=== PATIENT | female | born 1935 | race Caucasian/White ===

== ENCOUNTER 2016-04-30 11:51 | Inpatient (IN) | payer MEDICARE, BC ==
[~2016-04-30] VITALS: Ht 157.5 cm; Wt 56.0 kg
--- NOTE | ~2016-04-30 | OR ---
PATIENT'S NAME: PORTIA FRY [facility] AGE: 80 Y [address] ROOM: [address] [address] LOCATION: [facility] ADMIT DATE: 04/30/2016 OR/Procedure Report DISCHARGE DATE: FAMILY PHYSICIAN: CAROLYN NOGUERA MD ATTENDING PHYSICIAN: Beau Torres SURGEON: Beau Torres MD CASINO FLOORPERSON: DATE OF PROCEDURE: 04/30/2016 PREOPERATIVE DIAGNOSIS: Bimalleolar (supination external rotation) grade 4 fracture, right ankle. POSTOPERATIVE DIAGNOSIS: Bimalleolar (supination external rotation) grade 4 fracture, right ankle. PROCEDURE: Open reduction and internal fixation. ANESTHESIA: Subarachnoid block. INDICATIONS: This is a 80-year-old female who fell a week ago today sustaining a bimalleolar fracture of her right ankle. She presented to clinic yesterday, and because of her is unstable ankle fracture, was offered ORIF. DESCRIPTION OF PROCEDURE: The patient was brought to the operating room, and when a satisfactory spinal anesthesia had been established, her right lower extremity was prepped and draped in an aseptic manner. The extremity was exsanguinated with elevation and pneumatic tourniquet inflated to 250 mmHg around the upper thigh. A straight lateral incision was made over the lateral malleolus and carried down through the subcutaneous fat. The fracture was exposed and held reduced with a lobster claw clamp. The fracture was actually a long longitudinal split in the lateral malleolus, so 2 lag screws of 4.0 fully threaded screws were placed from anterior to posterior across the fracture once the fracture had been reduced. A locking lateral fibular plate was then positioned on the fibula and 2 proximal holes were drilled, measured, and filled with 3.5 cortical screws. In the distal cluster of screw holes, of about 5, 2.7 screws were drilled, measured, and filled with locking screws. Two proximal-most holes were drilled, measured, and filled with 2.7 locking screws. Position of the implants was checked on the C-arm and accepted. A medial incision was made over the medial malleolus and carried down through subcutaneous fat. The fracture was identified and exposed and medial malleolar fragment was distracted and the joint irrigated. There is 1 small fragment that was removed from off the talus. There is no obvious talar defect or injury. The medial malleolus was then reduced and held with a [id number] clamp. Two guide pins of 4.0 cannulated screw set were drilled across the fracture. The position was checked with the C-arm and accepted. They were measured, overreamed, and filled with 4.0 cannulated screws. This appeared to afford a satisfactory fixation of the medial malleolus. Position of the PATIENT'S NAME: PORTIA FRY [facility] AGE: 80 Y [address] ROOM: [place] [address] LOCATION: [facility] ADMIT DATE: 04/30/2016 OR/Procedure Report DISCHARGE DATE: FAMILY PHYSICIAN: CAROLYN NOGUERA MD ATTENDING PHYSICIAN: Beau Torres implants was checked with the C-arm and the wound was irrigated copiously with saline. Subcutaneous fat was closed with running 3-0 Vicryl, both wounds, and skin was closed with skin emely. Dressings were applied, and the tourniquet deflated. A stirrup splint of fiberglass was applied and the patient sent to recovery area having tolerated the procedure well. MD WESLEY RANKIN/rayl /[id number] d: 04/30/162228 t: 05/05/16 1211, OPERATIVE SUMMARY
--- NOTE | ~2016-04-30 | CON ---
PAT[facility]'S NAME: [facility] AGE: 80 Y [address] ROOM: [place] [address] LOCATION: [facility] ADMIT DATE: 04/30/2016 Consultation DISCHARGE DATE: FAMILY PHYSICIAN: CAROLYN NOGUERA MD ATTENDING PHYSICIAN: Beau Torres DATE OF CONSULTATION: 05/01/2016 REQUESTING PHYSICIAN: Dr. Torres. CONSULTING PHYSICIAN: Dr. Ojeda. REASON FOR CONSULTATION: Bradycardia. HISTORY OF PRESENT ILLNESS: The patient is a 80-year-old female with a past medical history as below who has undergone an elective open reduction and internal fixation of right bimalleolar ankle fracture. The patient has had an uneventful course in the last several hours after the surgery, however, she was noted to be considerably bradycardiac with heart rates at 45 while she was asleep. She was asymptomatic and her blood pressures were normal. When I came in to examine the patient, she woke up and her heart rate went into 80s in sinus. She has no complaints at this point. REVIEW OF SYSTEMS: Negative for any nausea, vomiting, chest pain, or shortness of breath. All systems have been reviewed and are negative aside from pertinent positives mentioned above. PAST MEDICAL HISTORY: Significant for insulin-dependent diabetes, hypertension, hyperlipidemia, and significant coronary artery disease, for which she was felt to be not a good candidate for angioplasty or bypass based on a catheterization done in 2011. SURGICAL HISTORY: As above. SOCIAL HISTORY: Negative for any toxic habits. FAMILY HISTORY: Reviewed and is noncontributory due to advanced age and known past medical problems. PATIENT'S NAME: [facility] AGE: 80 Y [address] ROOM: [place] [address] LOCATION: [facility] ADMIT DATE: 04/30/2016 Consultation DISCHARGE DATE: FAMILY PHYSICIAN: CAROLYN NOGUERA MD ATTENDING PHYSICIAN: Beau Torres CURRENT MEDICATIONS: 1. Acetaminophen. 2. Amlodipine. 3. Aspirin. 4. Atorvastatin. 5. Benazepril. 6. Brimonidine. 7. Calcium. 8. Vitamin D. 9. Cyanocobalamin. 10. Fenofibrate. 11. Insulin glargine 7 units. 12. Iron. 13. Xalatan. 14. Levothyroxine. 15. Multivitamin. 16. Nitroglycerin patch. PHYSICAL EXAMINATION: VITAL SIGNS: At this point, her vital signs are blood pressure 121/54, saturating 96% on room air, heart rate is 58 in sinus. GENERAL: Appears well developed, frail elderly female, in no acute distress. NEUROLOGIC: Significant for continued twitching which has been present for her whole life. Aside from that, the exam is nonfocal. EYES: Shows pupils are equal and reactive to light. LYMPHATIC: Shows no cervical lymphadenopathy. ENDOCRINE: Shows no thyromegaly. LUNGS: Clear to auscultation. HEART: Rate is regular with a 2/6 systolic ejection murmur. GI: Abdomen is soft, nontender, nondistended. : Shows no costovertebral angle tenderness. VASCULAR: 2+ pedal pulses. MUSCULOSKELETAL: Deferred. PSYCHIATRIC: Reveals appropriate mood, cognition, and affect. SKIN: Warm and dry. STUDIES: Review of lab studies done 2 days ago in preparation for surgery was unremarkable. EKG shows sinus bradycardia, 45 beats per minute, and a right bundle-branch block. IMPRESSION AND RECOMMENDATIONS: This is a 80-year-old female with asymptomatic sinus bradycardia when she is asleep. At this point, I do not think that her bradycardia warrants any PATIENT'S NAME: PORTIA FRY [facility] AGE: 80 Y [address] ROOM: [place] [address] LOCATION: [facility] ADMIT DATE: 04/30/2016 Consultation DISCHARGE DATE: FAMILY PHYSICIAN: CAROLYN NOGUERA MD ATTENDING PHYSICIAN: Beau Torres additional investigations. If it becomes pronounced, I would hold off on the benzodiazepines and opioids that are offered to her. 1. Type 2 diabetes: She is continued on her home dose of glargine. 2. History of hypertension: She is on her home regimen. Thank you for allowing us to participate in the care of this iraida lady. We will follow the patient for the rest of the night and contact her primary care physician at [facility] to see if they would like to take over medical management in the morning. Time dedicated to this patient encounter is 25 minutes. MD IVAAN WOODSON/rayl /[id number] d: 05/01/16 0508 t: 05/10/16 0804, CONSULTATION REPORT
--- NOTE | ~2016-04-30 | CON ---
PATIENT'S NAME: PORTIA SAVAGE [facility] AGE: 80 Y [address] ROOM: [address] [place], [place] [address] LOCATION: [facility] ADMIT DATE: 04/30/2016 Consultation DISCHARGE DATE: FAMILY PHYSICIAN: CAROLYN NOGUERA MD ATTENDING PHYSICIAN: Beau Torres DATE OF CONSULTATION: 05/01/2016 REFERRING PHYSICIAN: BENI ZAYAS MD Patient of Dr. Beau Torres and the hospitalist. Dear colleagues: Thank you for asking me to see Mrs. Savage who is a 80-year-old female patient who had a fracture of the right ankle after she fell. She thinks that she was given "high-powered" pain medication that made her lightheaded and made her fall and fracture her right ankle. This has been operated. Yesterday night she was bradycardic and sweaty and this lasted for about 30 minutes. Her heart rate was in the 30s and appears to be in regular sinus rhythm without any other associated symptoms of chest pain, shortness of breath, lightheadedness, etc. Currently, her heart rate is 75 beats per minute and she is in regular sinus rhythm. The patient denies any chest pains or shortness of breath. She is a nervous and active lady and does not seem to have any particular problems with shortness of breath. She is limited by her right hip and right knee. She currently seemed to be in functional class 2 with no paroxysmal nocturnal dyspnea or orthopnea. There is no lightheadedness, dizziness, syncope, presyncope until she fell. There are no palpitations or ankle swelling. The patient has hypertension, type 2 diabetes, elevated cholesterol. She never smoked and there is no family history of premature coronary artery disease. She denies PA or angina or nitroglycerin use. She had a catheterization by Dr. Leger who said that she has a lesion in one of her coronary artery that is so small that she cannot have stents. She is getting by with nitroglycerin very well. She denies rheumatic fever. She has a heart murmur which was the main reason she went to see Dr. Leger in the first place. There is no heart failure, dilated or enlarged heart, or any diagnosed arrhythmias. MEDICATIONS: 1. Latanoprost eye drops. 2. Nitroglycerin 0.2 mg q.h.s. PATIENT'S NAME: VINITA SAVAGEI Tyree [facility] AGE: 80 Y [address] ROOM: [place] [address] LOCATION: [facility] ADMIT DATE: 04/30/2016 Consultation DISCHARGE DATE: FAMILY PHYSICIAN: CAROLYN NOGUERA MD ATTENDING PHYSICIAN: Beau Torres 3. Diazepam 2 mg q.6 hours p.r.n. 4. Insulin. 5. Ferrous sulfate 325 at bedtime. 6. Aspirin 81 mg a day. 7. Famotidine 20 mg b.i.d. 8. Amlodipine 10 mg a day. 9. Levothyroxine 88 mcg a day. 10. Fenofibrate 160 mg a day. 11. Cyanocobalamin. 12. Tylenol. 13. Benazepril 10 mg a day. 14. Atorvastatin 20 mg a day. ALLERGIES: LACTOSE. PAST MEDICAL HISTORY: 1. DJD. 2. Cholecystectomy. 3. The patient has had three eye surgeries. 4. Two carpal tunnel syndrome surgeries. 5. 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 6. Radiation resulted in some problems to the vertebrae which was treated with surgery as well. SOCIAL HISTORY: The patient lives alone. She denies abusing alcohol. Her appetite and weight are stable. Sleep is normal. She is anxious. FAMILY HISTORY: No premature coronary artery disease. REVIEW OF SYSTEMS: A 12-point review of systems reveal the following positives. 1. Corrective lenses. 2. History of cataract surgeries. 3. History of kidney stones. 4. Anxiety. PHYSICAL EXAMINATION: VITAL SIGNS: On examination, her blood pressure is 140/84, heart rate is in the 70s, respirations 20, afebrile. HEENT: Normal. NECK: Supple with no JVD, thyromegaly, lymphadenopathy, or carotid bruit. HEART: PMI is not well located. First and second heart sounds are regular. PATIENT'S NAME: VINITA SAVAGEI Tyree [facility] AGE: 80 Y [address] ROOM: [place] [address] LOCATION: [facility] ADMIT DATE: 04/30/2016 Consultation DISCHARGE DATE: FAMILY PHYSICIAN: CAROLYN NOGUERA MD ATTENDING PHYSICIAN: Beau Torres She does have a grade 1/6 systolic murmur best heard in the left sternal edge. CHEST: Clear to auscultation. ABDOMEN: Soft and nontender. EXTREMITIES: Reveal no edema. CENTRAL NERVOUS SYSTEM: Intact. ASSESSMENT: Symptoms of bradycardia with some sweating. We will rule her out and check and see if she has congestive heart failure or not. We will get hold of her records from Dr. Leger's office. Further recommendations will be forthcoming depending on the initial evaluation. Again, I appreciate this opportunity to participate in the care of Mrs. Savage. MD LILIA CUENCA/marques /[id number] d: 05/02/16211 t: 05/18/16 1326, CONSULTATION REPORT
--- NOTE | ~2016-04-30 | CON ---
[facility] AGE[facility] 80 Y [address] ROOM: [place] [address] LOCATION: [facility] ADMIT DATE: 05/04/2016 Consultation DISCHARGE DATE: FAMILY PHYSICIAN: CAROLYN NOGUERA MD ATTENDING PHYSICIAN: Beau Torres REFERRING PHYSICIAN: BENI ZAYAS MD Consult for Dr. Clemons. This pleasant 80-year-old lady referred for [facility] rehab admission and evaluation. Admitted on 04/30/2016 after a fall and suffered bimalleolar supination extreme rotation grade 4 fracture of the right ankle. She is at the present time status post bimalleolar ORIF of fracture on 04/30/2016 of the right bimalleolar fracture referred to above. PAST MEDICAL HISTORY: Past history of significant. 1. Degenerative joint disease. 2. Status post cholecystectomy. 3. Status post carpal tunnel syndrome release x2. 4. CA throat resection and radiation, does not have the details of that. 5. Status post type 1 odontoid fracture with C4-5 flexion distraction injury. 6. Status post C4-5 anterior canal diskectomy. 7. Status post arthrodesis, status post allograft into C4-5 disks, status post C4-5 plating and screw fixation on 12/27/2014. 8. History of coronary artery disease. General: She is at the present time alert and oriented. Vital Signs are as follow: Blood pressure 133/99, temperature 98.1, pulse 63, respirations 16. She is 5 feet 2 inches tall and weighs 52.2 kg. Live alone and takes care of her own self. Mostly, she is well able to do everything for herself. At the present time, she is neurologically intact and vitals are remaining stable. She is on the following medications: 1. Nitroglycerin. 2. Levothroid. 3. Lovenox. 4. Dulcolax. 5. MOM. 6. Colace. 7. Insulin detemir. 8. Valium. [facility] AGE: 80 Y [address] ROOM: [place] [address] LOCATION: [facility] ADMIT DATE: 05/04/2016 Consultation DISCHARGE DATE: FAMILY PHYSICIAN: CAROLYN NOGUERA MD ATTENDING PHYSICIAN: Beau Torres 9. Xalatan. 10. Ferrous sulfate. 11. Aspirin. 12. Pepcid. 13. Norvasc. 14. Insulin regular moderate scale. 15. Vitamin and mineral. 16. TriCor. 17. B12. 18. Os-Mahendra D. 19. Tylenol. 20. NaCl 0.9%. 21. [place]. 22. Glucagon. 23. Glucose. 24. Dextrose. 25. Benadryl. 26. Lipitor. She is at the present time nonweightbearing on the right leg. At the present time, I feel that this lady will benefit from intensive rehabilitation of about 2 weeks aiming to discharge home on modified independent. She will continue on PT and OT that has already been initiated. Thank you for this referral. All the above was explained to her. She verbalized understanding and in agreement with plan of care. I will take her if she is okayed by the admitting surgeon and if she qualified per her insurance. JUAN MCDONOUGH MD WMS/modl /[id number] d: 05/04/16 2338 t: 05/05/16 1531, CONSULTATION REPORT
[~2016-04-30 11:51] MED LIST: ASPIR 8181 MG PO; B-121000 MC1 PO; BENAZEPRIL HCL10 MG PO; COMBIGAN EYE DRO5 ML OPHTH; FEOSOL325 MG PO; GLUCOPHAGE500 MG PO; LEVOTHROID (SY88 MCG PO; LIPITOR20 M1 PO; NITROGLYCERIN0.2 MG TRANS; NORVASC10 MG PO; NOVOLOG100 UNIT/M SUB-Q; OSCAL500 MG PO; THERAGRAN-M PR1 EACH PO; TRICOR 160 MG160 MG PO; TYLENOL WITH C1 EACH PO; TYLENOL325 MG PO; XALATAN2.5 ML OPHTH
--- NOTE | 2016-04-30 17:47 | NUR ---
Significant Event: PT ARRIVED TO THE FLOOR AT 1700 FROM PACU. AN ORIF OF R)ANKLE WAS DONE BY . 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 FULL SET OF DENTURES-NOT CURRENTLY IN AT THIS TIME. 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 PT IS ALERT AND ORIENTED. PT RECEIVED SPINAL ANESTHESIA. 1 NORCO 10/325 GIVEN IN PACU. NO COMPLAINTS OF PAIN SINCE ARRIVAL TO FLOOR. DRESSING TO R)ANKLE/FOOT INTACT. ABLE TO WIGGLE TOES/PLANTAR/DORSIFLEX FOOT. L)FOOT PUMP IN PLACE. NON-WEIGHT BEARING TO R)LEG. NEUROVASCULAR CHECKS Q2H FOR 24 HOURS UNTIL 1700 TOMORROW. IV TO L)WRIST INFUSING WITHOUT COMPLICATIONS. AC/HS ACCUCHECKS WITH MODERATE SLIDING SCALE. PT LIKES THE ROOM DARK PER HER REQUEST DUE TO VISION ISSUES. Follow up: CONTINUE TO MONITOR
--- NOTE | 2016-05-01 04:17 | NUR ---
Significant Event: The patient is Alert and Oriented x3. Denies numbess and tingling. Moves all extremities spontaneously and to command. NWB to the Right lower extremity. The patient has not been out of bed yet. VSS. Hypertensive at times, and bradycardic at times MD aware order for EKG done. On room air. Pain to her Right lower leg, gave [place] last at 0404, and valium last at 2306. Splint cast to Right leg C/D/I. PIV to the Left forearm saline locked. Bruising and swelling noted to right toes. Accu checks ACHS. Neurovascular checks q2h x24h ending at 1700 on 05/01/16. Follow up:
--- NOTE | 2016-05-01 15:54 | NUR ---
Significant Event: Alert an oriented. Split cast/ stockinette dressing dry and intact to rt lower leg. Rt toes ecchymotic and edematous. Able to wiggle toes. Up to chair/commode with 2 assist. Needs reminding of no weight bearing rt leg. Accuchecks 153, 207 Follow up:
--- NOTE | 2016-05-02 04:45 | NUR ---
Significant Event: The patient is Alert and Oriented x3. Denies Numbness and Tingling. Moves all extremities spontanously and to command. Up with a Heavy 2 Assist Pivot to commode or chair. VSS. On room air. Pain to her Right Ankle, [place] was last given at 0424 and Valium last at 2243. She has slept most of the night. Accu checks ACHS. Splint and Joel wrap to the Right lower extremity. Swelling and Bruising to her right toes. Bruising to bilateral arms. Cardiology rounded and ordered EKG and Troponin x3 [id number] last one will be at 0813. PIV to the Left Wrist saline locked. She is NWB to the Right Leg. Blind in her Left eye. Follow up: Need to obtain labor delivery rn reports from [facility], start Lovenox if OK with Ortho
--- NOTE | 2016-05-02 13:43 | NUR ---
Significant Event: vss. alert and oriented up with 1-2 assist. non-weight bearing to rt leg. up to chair today. did very well pivioting to chair. did not put any weight on right leg. up to commode on the way back to chair since not going to strong side. patient needed reminding to not put any weight on right leg. pain medications as needed. possible TCU when bed available. achs accuchecks. Follow up: monitor
--- NOTE | 2016-05-03 04:59 | NUR ---
Significant Event: The Patient is Alert and Oriented x3. Denies Numbness and Tignling. Moves all Extremities spontaneously and to command. Up with 2A pivot to chair and commode. NWB to the Right Leg. Soft Cast to the Right Lower Leg C/D/I. VSS, hypertensive at times. On room air. Pain to the Right Lower leg gave [place] at 2314, patient also likes Ice. Swelling to Right foot and toes. Bruising and Abrasion to bilateral elbows. PIV to the Left Forearm saline locked. Accu checks ACHS. The patient is Blind in her Left eye. Follow up: placement?
--- NOTE | 2016-05-03 12:10 | NUR ---
1005 Reveiwed Rosemary's chart this morning and also received consults to get her to TCU upon discharge. In reviewing her chart, it appears that she is under OBS status at this time. I went ahead and contacted Ab with UR in CM dept. to see if she would be willing to review her chart further and send her information onto [employer] to see if she would meet IPO criteria before I went and talked with her about TCU/SNF placement upon dismissal. 1130 Per Ab, she did send the information onto [employer], but from what she can tell, OBS status will most likely hold up. I will go and visit with Rosemary about this once I have heard back from Ab and see what we can do re:discharge plans.
--- NOTE | 2016-05-03 13:24 | NUR ---
Significant Event: PT ALERT AND ORIENTED X3. 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 DENIES NUMBNESS/TINGLING. MOVES ALL EXTREMITIES. SOFT CAST TO R)LOWER LEG CLEAN/DRY/INTACT. R)FOOT/TOES EDEMATOUS; ABLE TO WIGGLE TOES/PLANTAR/DORSIFLEX FOOT. NON-WEIGHT BEARING TO R)LEG. TRANSFERRED WITH 2-ASSIST/PIVOT TO CHAIR THIS MORNING WITH PHYSICAL THERAPY. AC/HS ACCUCHECKS WITH MODERATE SLIDING SCALE. L)FOOT PUMP IN PLACE. NORCO 10/325 1 TAB GIVEN AT 0747, WITH RELIEF. MILK OF MAGNESIA GIVEN AT 0931; LAST BM WAS ON 04/28/16. BOWEL SOUNDS PRESENT X4. PT STATES THAT SHE "DOES NOT FEEL UNCOMFORTABLE." STATED THAT SHE MIGHT TAKE A DULCOLAX LATER TODAY. DIABETIC DIET; GOOD APPETITE. TAKES MEDICATIONS WHOLE WITH WATER. Follow up: PENDING PLACEMENT? TCU?
[2016-05-03] MEDS ORDERED: NORCO 5-325 TA1 EACH PO (19:13)
--- NOTE | 2016-05-04 04:15 | NUR ---
Significant Event: Patient is alert and oriented x3. Follows commands. Pupils are 2mm and brisk. Left eye blindness. Right eye has macular degeneration and glaucoma. Cardiology is on board- at times hypertensive and bradycardic. Continent of urine. Room air. Last BM 04/28- tummy is soft, active x4, denies being uncomfortable. Left FA-SL'd. Accu checks ACHS- ADA diet. Takes pills whole. NWBT the right foot-2a pivot with walker. Soft cast to rightleg. Foot pump to left foot. Lovenox. Follow up: Monitor for BM.
--- NOTE | 2016-05-04 11:05 | NUR ---
PT SCREENED D/T LOS. EST NEEDS: 6912-8030 KCALS, 52-66 GM PROTEIN, 1 ML/KCAL FLUIDS. INTAKE ADEQUATE. NOT AT RISK.
--- NOTE | 2016-05-04 16:11 | NUR ---
Significant Event: Pt A&Ox3. Follows commands. MUNIR, 3mm and brisk. Left eye blindness, right eye has macular degeneration and glaucoma. At beginning of shift pt BP was 168/72, last BP was 133/99. Continent of urine, up to bedside commode, BM today. Left FA IV saline locked. Accu checks ACHS-ADA diet. NWBT to right foot, 2A pivot with walker. Soft cast to right leg. Foot pump to left foot. Equal strength in bilat extremities. [place] given last 729, pt denies need for pain meds since then. Pt alarms activated and has knowledge of call light. Follow Up: Possibly rehab follow-up.
--- NOTE | 2016-05-04 16:52 | NUR ---
Call from [facility] this morning, states that they can accept Rosemary, but it would be out of pocket cost to them. I let her know that I would talk with pt and family and update her. I visited with DR. Clemons about OBS vs INPT status and how that was affecting discharge planning. He voiced understanding to this. I also asked if we could get an [facility] consult to see if we might be her there for a short time. He did write for a [facility] consult, Dr. Segal rounded, wrote that he would accept pt when she was ready for discharge from acute care. Left a VM with [facility] to see if they could take to [facility] tomorrow, no call back yet. In the meantime, I did updated Rosemary, daughter and [facility] to all of the above. Let them know that we were going to plan on [facility] and if [facility] couldn't accept then we would go to [facility] and they would just have to pay out of pocket for her skilled stay. I did explain the OBS vs INPT to daughter so she understood what was going on. Also referred them to Della Marquez to help with Medicaid application/starting that process. Daughter states if [facility] won't take, then they will just have to go to SNF and pay out of pocket for her to go there. Let them know that I would be gone tomorrow so another CM would follow up with [facility] on [facility] and then update them to the plan either [facility] or private pay at SNF due to OBS status. Will continue to follow and assist.
--- NOTE | 2016-05-05 05:32 | NUR ---
Significant Event: Patient is alert and oriented x3. VSS. Denies pain. Denies POWERS. Denies N/T. 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 Pupils are 2m and brisk. Follows commands. Weak in the right lower extremity. Bradycardic this shift-BP's stable. Edema to the right foot 2+. Uses BSC with 2A gb walker-nwbt to RLE-pivot. Room air- clear to c/d. Last BM 05/04-active x4. PIV in left FA sl'd. Accu checks ACHS-ADA diet. Takes pills whole with water. Scds on. Soft cast to RLE. Bruising to foot. Follow up: [facility] when ready.
--- NOTE | 2016-05-05 13:37 | NUR ---
Called Mckayla on [facility], they can accept pt tomorrow at 0900. I let pt know and called daughter Yael at [phone] and left her a voicemail with the above information. Let charge nurse and community integration specialist know.
--- NOTE | 2016-05-05 16:31 | NUR ---
Significant Event: PT ALERT AND ORIENTED X3. 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 NON-WEIGHT BEARING TO R)FOOT. TRANSFERS WITH 2-ASSIST/GAIT BELT/PIVOT. VOIDS PER COMMODE. SAT IN THE CHAIR MOST OF THE DAY. VITAL SIGNS STABLE; ON ROOM AIR. SOFT CAST TO R)LOWER LEG IS CLEAN/DRY/INTACT. ABLE TO WIGGLE R)TOES/PLANTAR/DORSIFLEX FOOT; TOES EDEMATOUS/BRUISED. AC/HS ACCUCHECKS WITH MODERATE SLIDING SCALE. L)FOOT PUMP ON. TAKES MEDICATIONS WHOLE WITH WATER. IV TO L)FA SALINE LOCKED. 1 NORCO 10/325 GIVEN AT 1436. Follow up: PLAN TO TRANSFER TO [facility] TOMORROW AT 0900; WILL REMOVE SPLINT/SOFT CAST TOMORROW AND WILL APPLY WALKING BOOT-AFTER BOOT IS PLACED, PT WILL BE WEIGHT-BEARING TOLERATED.
--- NOTE | 2016-05-06 03:29 | NUR ---
Significant Event: A&Ox3. Pt blind in L) eye and macular degeneration in R) eye, eye drops scheduled. Magnifying glass at bedside. Up heavy 2 assist pivot NWB on R) leg. Has soft cast to R) leg will switch to walking boot today. On tele SR ksenia when she sleeps. Pt runs slightly hypertensive. Diabetic diet. Accuchecks AC&HS. IV to L) forearm SL. [place] given for pain. Follow up: [facility] at 0900. DR. Torres is going to take off soft cast and put on walking boot before she goes.
--- NOTE | 2016-05-06 09:23 | NUR ---
Patient A/O x3. 2 assist pivot transfer. On RA. Hypertensive on 1st assessement. is aware, BP medication given. New order for 1 time dose of Catapress given. Patient complains of pain to the R) Leg, [place] 1 tab given at 0911. IV to L) FA SL. Diabetic diet. ACHS acchuchecks, moderate sliding scale, 2 units given. Patient takes pills whole with water. Patient is blind in L) eye and has Macular degeneration to the R) eye. Magnify glass at bedside. Patient on Lovenox. Patient will have Injection to R) Hip by Dr. Clemons. Will be up to TCU by noon today. Risk and benefits discussed. Permits signed. Uses call light appropriately. Patient pleasant and cooperative with cares.
--- NOTE | 2016-05-06 12:00 | NUR ---
Significant Event: Patient A/O x3. VS stable, hypertensive at times. Afebrile. On RA. Patient 2 assist pivot with no weight bearing to the R) leg. Patient was transferred to Rehab at 0945. Patient was transferred with all belonings per wheelchair. Patient with transport team and nurse. Nurse to nurse report given when arrival to floor. Transfer packet given. Patient pleasant and cooperative. Follow up:
--- NOTE | 2016-05-06 12:32 | NUR ---
Discharged to [facility] today.
[2016-08-03] MEDS ORDERED: COLACE100 MG PO (10:13)
[2016-08-03] MEDS ORDERED: CATAPRES0.1 MG PO (10:13)
[2016-08-03] MEDS ORDERED: COREG25 MG PO (10:14)
[2016-08-03] MEDS ORDERED: DOXYCYCLINE100 MG PO (10:17)
[2016-08-03] MEDS ORDERED: FLORASTOR250 MG PO (10:18)
[2016-08-03] MEDS ORDERED: HYDRALAZINE HC100 MG PO (10:20)
[2016-08-03] MEDS ORDERED: LEVAQUIN500 MG PO (10:21)
[2016-08-03] MEDS ORDERED: LEXAPRO10 MG PO (10:23)
[2016-08-03] MEDS ORDERED: MELATONIN3 MG PO (10:24)
[2016-08-03] MEDS ORDERED: PEPCID20 MG PO (10:27)
[2016-08-03] MEDS ORDERED: ROCALTROL0.25 MCG PO (10:28)
[2016-08-03] MEDS ORDERED: SEROQUEL25 MG PO (10:29)
[2016-08-03] MEDS ORDERED: VITAMIN B-121000 MCG PO (10:30)
[2016-08-03] MEDS ORDERED: ONDANSETRON ODT4 MG PO (10:31)
[2016-08-03] MEDS ORDERED: DULCOLAX10 MG R (10:32)
[2016-08-03] MEDS ORDERED: GLUCAGON 1 MG PE1 MG SUB-Q (10:34)
[2016-08-03] MEDS ORDERED: GLUCOSE4 GM PO (10:36)
[2016-08-03] MEDS ORDERED: MILK OF MA400 MG/5 M PO (10:38)
[2016-08-03] MEDS ORDERED: MIRALAX PO527 GM/BOT PO (10:39)
[2016-08-03] MEDS ORDERED: XANAX0.25 MG PO (10:42)
[2016-08-11] MEDS ORDERED: OXYGEN M-15 INH (13:02)
[2016-08-11] MEDS ORDERED: SENSI-CARE PRO113 GM TOP (13:03)
== END 2016-05-06 11:06 | DRG 983 ==
LOC: G3N 11:51 → GNTU 11:51 → GSDC 11:51 → GPOC 12:00 → GNTU 15:45 → GSDC 15:46 → GPOC 17:00 → GNTU 05-04 10:20
PROVIDERS: ADMIT Orthopaedic Surgery
PROC: 0QSJ04Z Reposition Right Fibula with Internal Fixation Device, Open Approach (ICD-10-PCS; principal; 2016-04-30)
DX: R00.1 Bradycardia, unspecified (principal); E11.22 Type 2 diabetes mellitus with diabetic chronic kidney disease; E11.65 Type 2 diabetes mellitus with hyperglycemia; S82.841A Displaced bimalleolar fracture of right lower leg, initial encounter for closed fracture; I12.9 Hypertensive chronic kidney disease with stage 1 through stage 4 chronic kidney disease, or unspecified chronic kidney disease; N18.9 Chronic kidney disease, unspecified; E78.5 Hyperlipidemia, unspecified; I25.10 Atherosclerotic heart disease of native coronary artery without angina pectoris; H35.30 Unspecified macular degeneration; E03.9 Hypothyroidism, unspecified; H40.9 Unspecified glaucoma; W19.XXXA Unspecified fall, initial encounter; Z98.1 Arthrodesis status; Z85.01 Personal history of malignant neoplasm of esophagus; Z79.4 Long term (current) use of insulin; Z79.82 Long term (current) use of aspirin; Z92.3 Personal history of irradiation; Z86.73 Personal history of transient ischemic attack (TIA), and cerebral infarction without residual deficits; Z95.5 Presence of coronary angioplasty implant and graft
CPT/HCPCS: A9270; C1713; G0378; G8978; G8979; G8980; G8981; G8982; G8983; J0690; J1650; J2001; J7030

== ENCOUNTER 2016-05-06 10:31 | Inpatient (IN) | payer MEDICARE, BC ==
[~2016-05-06] VITALS: Ht 157.5 cm; Wt 53.0 kg
--- NOTE | ~2016-05-06 | CON ---
[facility] AGE: 80 Y [address] ROOM: [place] [address] LOCATION: [facility] ADMIT DATE: 05/06/2016 Consultation DISCHARGE DATE: FAMILY PHYSICIAN: CAROLYN NOGUERA MD ATTENDING PHYSICIAN: Jhon Segal DATE OF CONSULTATION: 05/06/2016 REFERRING PHYSICIAN: Jacob Clemons MD ORTHOPEDIC CONSULTATION CHIEF COMPLAINT: Right hip pain. HISTORY: This 80-year-old female has had pain in her right hip off and on for several years. She recently fell and fractured her right ankle and had ORIF of the ankle which is coming along nicely, but she has been less mobile and has been in bed a lot and the pain in the hip has gotten worse. She points to the greater trochanter as the location hurts to lay on it. When she sits for a period and then starts to move, it hurts. Keeps her up at night. It hurts to roll over on it. It is interfering some with her recovery from the ankle fracture. She denies falling on the hip when she broke her ankle. PAST MEDICAL HISTORY: Hypertension, diabetes, hyperlipidemia, coronary artery disease, hypothyroidism, blood pressure is fairly well controlled. MEDICATIONS: Past medical history includes the following medications: 1. Amlodipine. 2. Atorvastatin. 3. Benazepril. 4. Calcium. 5. Fenofibrate. 6. Furosemide. 7. Lantus insulin. ALLERGIES: NONE. FAMILY HISTORY: Hypertension in her father and mother. SOCIAL HISTORY: [facility] AGE: 80 Y [address] ROOM: [place] [address] LOCATION: [facility] ADMIT DATE: 05/06/2016 Consultation DISCHARGE DATE: FAMILY PHYSICIAN: CAROLYN NOGUERA MD ATTENDING PHYSICIAN: Jhon Segal Former smoker, stopped 10 years ago. Alcohol none. 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 REVIEW OF SYSTEMS: No coughs, colds, fevers, chills, or sore throats. No chest pain, shortness of breath, or trouble breathing. No nausea, vomiting, or diarrhea. She does have constipation. No dysuria or hematuria. No skin changes. No malaise. No weight gain or loss. No audio or visual hallucinations. PHYSICAL EXAMINATION: GENERAL: She is awake, alert, and oriented x3. Mood and affect appropriate. She is fairly slender, in no acute distress. VITAL SIGNS: Blood pressure 130/60, pulse 74 and regular, respirations 18, temp 98. HEENT: Atraumatic, normocephalic. PERRL. EOMI. TMs clear. Throat clear. NECK: Supple. CHEST: Clear. HEART: Regular rhythm. ABDOMEN: Soft and nontender. SPINE: Nontender. MUSCULOSKELETAL: Right hip is tender over the greater trochanter. There is no warmth, redness, or swelling. Flexion and adduction exacerbates the pain. Leg lengths equal pelvis level. Her right leg is in the short leg splint. It fits well. Sensation and motor function intact to lower extremities. Pulses good. Reflex is equal. DIAGNOSTIC DATA: X-rays, AP pelvis and lateral of the right hip show no fractures. Joint space is well preserved. Minimal arthritic changes. IMPRESSION: 1. Trochanteric bursitis, right hip. 2. Hypertension. 3. Hyperlipidemia. 4. Type 2 diabetes. 5. Status post open reduction internal fixation, right ankle, doing well. PLAN: She was placed in the left lateral decubitus position. Risks and benefits discussed. Time-out was performed. The trochanteric bursa of the right hip was injected with a spinal needle, 80 mg Depo-Medrol, 5 mL lidocaine. She was given exercises. She can use ice on it. We will follow her along. PATIENT'S NAME: PORTIA FRY [facility] AGE: 80 Y [address] ROOM: [place] [address] LOCATION: [facility] ADMIT DATE: 05/06/2016 Consultation DISCHARGE DATE: FAMILY PHYSICIAN: CAROLYN NOGUERA MD ATTENDING PHYSICIAN: Jhon Segal MD BEA/marques /[id number] d: 05/08/161936 t: 05/12/16922, CONSULTATION REPORT
--- NOTE | ~2016-05-06 | CON ---
PATIENT'S NAME: PORTIA FRY [facility] AGE: 80 Y [address] ROOM: [place] [address] LOCATION: [facility] ADMIT DATE: 05/06/2016 Consultation DISCHARGE DATE: FAMILY PHYSICIAN: CAROLYN NOGUERA MD ATTENDING PHYSICIAN: Jhon Segal DATE OF CONSULTATION: 05/18/2016 REFERRING PHYSICIAN: Dr. Segal. REASON FOR VISIT: Wound Care visit to evaluate and assess a right foot device-related pressure injury. HISTORY OF PRESENT ILLNESS: This is a pleasant 80-year-old female patient who was admitted to [facility] with right ankle pain. The patient presented to the ER on 04/23/2016 with right hip and right knee pain. She reports she was taking medication and ended up falling 2 to 3 times at home and sustained a right bimalleolar grade 4 ankle fracture. On 04/30/2016, she had an ORIF to her right ankle by Dr. Torres. She was admitted to inpatient rehab on 05/06/2016. The patient is planning to discharge to [facility] tomorrow. The patient had a splint placed to her right ankle, which was removed on 05/16/2016. The patient reports that she has been complaining of right foot pain as well as splint pain. She felt the splint was causing her pressure and nobody was addressing the site until Tuesday. After removal, she was noted to have a dark linear closed area to the right plantar surface of her foot. She has a history of essential hypertension, coronary artery disease, hyperlipidemia, and type 2 insulin-dependent diabetes mellitus. She denies chest pain or shortness of breath. She denies congestive heart failure or intermittent claudication symptoms. She reports a good oral intake. She denies nausea or vomiting. PAST MEDICAL HISTORY: Essential hypertension, hypercholesteremia, glaucoma, DVT, CAD, osteoarthritis, constipation, chronic kidney disease, anemia, type 2 diabetes mellitus. PAST SURGICAL HISTORY: Bilateral carpal tunnel surgery, cholecystectomy, bilateral cataract removal, and ORIF of right ankle. FAMILY HISTORY: PATIENT'S NAME: PORTIA FRY [facility] AGE: 80 Y [address] ROOM: [place] [address] LOCATION: [facility] ADMIT DATE: 05/06/2016 Consultation DISCHARGE DATE: FAMILY PHYSICIAN: CAROLYN NOGUERA MD ATTENDING PHYSICIAN: Jhon Segal Both of her parents suffered from a stroke. SOCIAL HISTORY: The patient is a and lives by herself in [place], [place]. She is planning discharge to [facility] tomorrow. She denies tobacco or alcohol use. ALLERGIES: LACTOSE. CURRENT MEDICATIONS: Please refer to the medication administration record. REVIEW OF SYSTEMS: A 10-point review of systems was completed and all are negative except as mentioned above in the HPI. PHYSICAL EXAMINATION: VITAL SIGNS: Temperature 97.8, pulse 98, respirations 14, blood pressure 101/53, pulse oximetry 96% on room air. Height 5 feet 2 inches and weight 53.0 kg. GENERAL: The patient is alert and oriented x3, cooperative with cares, in no acute distress, thin in appearance. HEENT: Head: Normocephalic, atraumatic. LUNGS: Clear to auscultation. GASTROINTESTINAL: Abdomen is soft and nontender. VASCULAR: +1 pedal pulses. No edema noted. SKIN: Right mid plantar foot has a linear purple/red deep tissue injury that is approximately 7 cm width x 2.0 cm length. Area is currently not open. To the patient's right lateral ankle, she has intact emely. Orders to remove today. There is a slight open area to the center that measures 1 cm length. It appears pale in color. The proximal and distal aspects of the wound have pressure injuries with yellow slough and a small amount of moist pink tissue. Scant amount of serous exudate noted. The right medial ankle has intact emely. After removal, wound is approximated. Removed tissue to the wound bed. She has also pressure injury to the proximal aspect of the incision. Heels intact. Capillary refill intact. Extremities are warm to touch. LABORATORY DATA: Pre-albumin 21. Sodium 139, potassium 4.7, chloride 107, bicarb 25, BUN 40, creatinine 1.4, glucose 108, albumin 3.0. White blood cell count 4.8, hemoglobin 9.1, hematocrit 28.0, and platelets 467. ASSESSMENT AND PLAN: PATIENT'S NAME: PORTIA FRY [facility] AGE: 80 Y [address] ROOM: [id number] [place], [place] [address] LOCATION: [facility] ADMIT DATE: 05/06/2016 Consultation DISCHARGE DATE: FAMILY PHYSICIAN: CAROLYN NOGUERA MD ATTENDING PHYSICIAN: Jhon Segal Again, this is a pleasant 80-year-old female patient who is admitted to [facility] with a right ankle fracture. She underwent an ORIF on 04/30/2016. 1. Right ankle ORIF with surgical wounds. Nursing clarified with Dr. Clemons to make sure staple removal was appropriate. It appeared that there was a possible area slightly open however, he still insisted on staple removal. After removal, site was covered with Steri-Strips. The patient is to follow up with Dr. Clemons in 2 weeks. I instructed nursing to leave the medial site open to air. I instructed patient on pressure redistribution measures to prevent further injury. Areas do not appear to be draining, and there are no signs of purulent infection. I believe these full-thickness pressure injuries are due to her splint. 2. Right mid foot plantar surface deep tissue injury from splint. This is a device-related deep tissue injury. I instructed the patient that the site could demarcate and open up. It is helpful to splint is off now. No pressure is to be applied to this site and the patient does not appear to have pressure with her walking boot. I offered her a footdrop boot to take to [address]; however, she declined at this time. She is knowledgeable on pressure redistribution measures. I wish the patient good luck. I would like to thank Dr. Segal for this consultation. MO BAEZ APRN FOR MD YEYO PANDYA/marques /[id number] d: 05/19/16 0323 t: 05/24/16 1732, CONSULTATION REPORT
--- NOTE | ~2016-05-06 | CON ---
PATIENT'S NAME: PORTIA FRY [facility] AGE: 80 Y [address] ROOM: [id number] [place], [place] [address] LOCATION: [facility] ADMIT DATE: 05/06/2016 Consultation DISCHARGE DATE: 05/19/2016 FAMILY PHYSICIAN: Compa Pillai MD ATTENDING PHYSICIAN: Jhon Mcdonough DATE OF CONSULTATION: 05/19/2016 REFERRING PHYSICIAN: Jacob Clemons MD Team members reporting include: Dr. Mcdonough; Mckayla Ty, social media marketing specialist; Erin Mireles, RN; Tana Valadez, PT; Hanna Dooley, PT; Archana Aguayo, OT; Courtney Nguyen, therapeutic rec; and Sister Reyna Pelaez, Pastoral Care. CURRENT STATUS: Glenn Riley is a 80-year-old woman, admitted to our inpatient rehab unit on May 06, 2016, following a right ankle fracture with ORIF done. The patient is currently continent of bowel and bladder. She does have a wound on her right foot from the cast. She does have an abrasion on her left elbow. Takes Plato for pain. She is on a consistent carbohydrate diet. Her prealbumin is currently at 21, currently at low nutritional risk. She can transfer sit to supine independently; supine to sit, modified independence; sit to stand, independent; she can walk 150 feet with a four-wheeled walker at modified independence; she can climb 4 stairs with 2 railings at modified independence; she can dress her upper and lower body, modified independence; grooming, modified independence; bathing, standby; toilet and shower transfers, modified independence; toileting, modified independence; and feeding, modified independence. She can complete car transfers at standby assistance to modified independence. The patient has been very open to pastoral care. DISCHARGE PLAN: The patient is receiving 3 hours of PT, OT Tuesday through Tuesday. The patient has daily rehab, nursing, and Physiatry involvement as well as therapeutic recreational services 4 days per week. The patient has shown functional improvement and is progressing. Please see her plan of care for specific goals. Plan is for the patient to discharge on May 19, 2016. The patient will be going to [facility]. MCKAYLA TY FOR JHON MCDONOUGH MD TD/modl PATIENT'S NAME: PORTIA FRY [facility] AGE: 80 Y [address] ROOM: [place] [address] LOCATION: [facility] ADMIT DATE: 05/06/2016 Consultation DISCHARGE DATE: 05/19/2016 FAMILY PHYSICIAN: Compa Pillai MD ATTENDING PHYSICIAN: Jhon Mcdonough /[id number] d: t: 06/02/16 1801, CONSULTATION REPORT
--- NOTE | ~2016-05-06 | DS ---
PATIENT'S NAME: PORTIA FRY [facility] AGE: 80 Y [address] ROOM: [id number] [place], [place] [address] LOCATION: [facility] ADMIT DATE: 05/06/2016 Discharge Summary DISCHARGE DATE: FAMILY PHYSICIAN: Copma Pillai MD ATTENDING PHYSICIAN: Jhon Mcdonough This 80-year-old lady was admitted to rehab unit at [facility], [place], [place] on 05/06/2016, is going to be discharged to go to [facility] on 05/19/2016. 1. She was admitted with unstable gait, dependent activities, and self-care. 2. Status post by right bimalleolar fracture status post open reduction internal fixation on 04/30/2016. 3. She was put on intensive PT, OT, and did well. 4. At the present time, alert, oriented, and is in a boot on the right side. VITAL SIGNS: Blood pressure 142/69, temperature 97.9, pulse 67, and respiration rate 16. She can ambulate up to 150 feet and x2 with four-wheeled walker and stable. She will continue with outpatient PT, OT 3 times per week for the coming 2 weeks. I will see her thereafter. MEDICATIONS: She is at the present time on the following medications, 1. Norvasc 5 mg p.o. twice daily. 2. Aspirin 81 mg p.o. 2 at bedtime. 3. Lipitor 20 mg p.o. daily. 4. Os-Mahendra D 500 mg daily. 5. B12 vitamin 1000 mg daily. 6. Colace 100 mg p.o. b.i.d. 7. Pepcid 20 mg p.o. daily. 8. TriCor 160 mg p.o. daily. 9. Feosol 325 mg p.o. at bedtime. 10. Levemir 7 units subcu in the morning. 11. Levothroid 100 mcg p.o. q.a.m. 12. Theragran-M 1 tablet p.o. daily. 13. Nitroglycerin 0.2 mg every morning applied to the chest. 14. Xalatan 1 drop both eyes ophthalmic every evening. 15. The patient's own medication, Combigan eye drops twice daily, one drop each eye. 16. Tylenol 650 q.6 hours, do not exceed acetaminophen 4 g q.24 hours, give 36 of them. 17. Creole 10/325 one tab p.o. q.3 hours, give 36 of them. 18. Milk of magnesia 30 mL p.o. daily. All the medication are given for her on discharge, any renewal per her family PATIENT'S NAME: PORTIA FRY [facility] AGE: 80 Y [address] ROOM: [address] [address] LOCATION: [facility] ADMIT DATE: 05/06/2016 Discharge Summary DISCHARGE DATE: FAMILY PHYSICIAN: Compa Pillai MD ATTENDING PHYSICIAN: Jhon Mcdonough physician and any addition or deletion as per family physician too. She is on regular diet, consistency diet ADA 1800 calories. She will keep her boot on and she will go to PT/OT 3 times per week for the coming 2 weeks, I will see her thereafter. FINAL DIAGNOSES: 1. Unstable gait. 2. Dependent activities and self-care. 3. Status post right bimalleolar fracture status post open reduction internal fixation on 04/30/2016. 4. History of type 1 odontoid fracture, status post screw and fixation plus C4-C5 disc distraction and C4-C5 plating. 5. Coronary artery disease. 6. Hypothyroid. 7. Anemia. 8. Diabetes type-2. 9. Hypertension. 10. Status post history of cholecystectomy and carpal tunnel syndrome release x2. 11. 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 12. Dyslipidemia. 13. Osteoporosis. DISCHARGE INSTRUCTION: The patient is not to drive until she is re-evaluated. She will keep the boot on as I said until Dr. Clemons or Brian will advise otherwise. Follow up with Dr. Pillai as he sees fit. Follow up with machine slat basket maker Dr. Quintanilla as he sees fit. All the above was explained to her in detail. She verbalized understanding and agreement. JHON MCDONOUGH MD WMS/marques /[id number] d: 05/19/16 1249 t: 05/20/16 0821, DISCHARGE SUMMARY
--- NOTE | ~2016-05-06 | CON ---
PATIENT'S NAME: ROSEMARY [facility] AGE: 80 Y [address] ROOM: [id number] [place], [place] [address] LOCATION: [facility] ADMIT DATE: 05/06/2016 Consultation DISCHARGE DATE: FAMILY PHYSICIAN: CAROLYN NOGUERA MD ATTENDING PHYSICIAN: Jhon Mcdonough DATE OF CONSULTATION: 05/11/2016 REFERRING PHYSICIAN: Jacob Clemons MD Team members reporting include Dr. Mcdonough; Mckayla Ty, social group worker; Erin Mireles RN; Tana Valadez, PT; Ludmila Bloom, OT; Courtney Nguyen, therapeutic rec; Sister Reyna Pelaez, Pastoral Care; and Alycia Duvall, pharmacist. CURRENT STATUS: Rosemary is a 80-year-old woman, admitted to our inpatient rehab unit on May 06, 2016, after a fall in her home where she fractured her ankle. The patient did have an ORIF done to her right ankle on April 30, 2016. The patient also has a history of degenerative joint disease; status post cholecystectomy; cancer of the throat, status post resection and radiation with no details at this time; status post type 1 odontoid fracture and C4-C5 disk distraction; status post C4-C5 plating and screw fixation on December 27, 2014; history of coronary artery disease; hypothyroidism; diabetes type 2; dyslipidemia; and hypertension. The patient can transfer sit to supine and supine to sit independently; sit to stand and stand to sit, standby; and bed to chair and chair to bed, standby. She can walk 120 feet with a front-wheeled walker at standby assistance with occasional cues and she can climb 4 stairs with 2 railings at standby. The patient is currently continent of bowel and bladder. Her right lower extremity is in a cast. The patient takes [place] for pain. She does have a left elbow abrasion. The patient is on a consistent carbohydrate diet. Her intake is 75% to 100%. Prealbumin is 12. The patient can dress her upper body at standby; lower body, minimal assistance; grooming, standby; bathing, standby; toilet and shower transfers, standby; and feeding, standby assistance. Her goals have been set for standby assistance to modified independence. Education was done with the patient through therapeutic recreation. The patient has been very open to pastoral care and there are no pharmacy concerns. DISCHARGE PLAN: The patient is receiving 3 hours of PT and OT Tuesday through Tuesday. The patient has daily rehab, nursing, and physiatry involvement as well therapeutic recreational services 4 days per week. The patient has shown functional improvement and is progressing. Please see her plan of care for specific goals. Plan is for the patient to discharge in approximately 7 days. Plan is for the patient to go to an assisted living residence here in [place], PATIENT'S NAME: ROSEMARY [facility] AGE: 80 Y [address] ROOM: [place] [address] LOCATION: [facility] ADMIT DATE: 05/06/2016 Consultation DISCHARGE DATE: FAMILY PHYSICIAN: CAROLYN NOGUERA MD ATTENDING PHYSICIAN: Jhon Mcdonough. MCKAYLA TY FOR JHON MCDONOUGH MD TD/modl /[id number] d: 05/14/16 180 t: 06/03/16 1112, CONSULTATION REPORT
--- NOTE | ~2016-05-06 | HP ---
PATIENT'S NAME: PORTIA FRY [facility] AGE: 80 Y [address] ROOM: [place] [address] LOCATION: [facility] ADMIT DATE: 05/06/2016 History & Physical DISCHARGE DATE: FAMILY PHYSICIAN: CAROLYN NOGUERA MD ATTENDING PHYSICIAN: Jhon Mcdonough DATE OF SERVICE: This 80-year-old lady is admitted for continuous medical treatment and intensive rehabilitation. 1. Unstable gait. 2. Dependent activities and self-care. At the present time, nonweightbearing and will verify with orthopedic surgeon down the line on the right lower extremity. 3. She is status post right bimalleolar fracture status post ORIF on 04/30/2016, secondary to an incident of tripping and falling. She is at the present time alert and oriented. Vitals on admission are as follows: Blood pressure 159/67, temperature 98.3, pulse 62, respirations 18. She is 5 feet 2 inches tall and weighs 56.0 kg. ALLERGIES: SHE HAS LACTOSE INTOLERANT ALLERGY. PAST MEDICAL HISTORY: Past history of significance as follows: 1. History of degenerative joint disease. 2. Status post cholecystectomy. 3. Status post carpal tunnel syndrome x2. 4. 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 5. Status post type 1 odontoid fracture, and C4-5 disk distraction, status post C4-5 plating and screw in fixation on 12/27/2014. 6. History of coronary artery disease. 7. Hypothyroid. 8. Diabetes type 2. 9. Dyslipidemia. 10. Hypertension. At the present time, she is alert, oriented, able to comprehend, express without difficulty. She is saturating at room, can move bilateral upper and lower extremity. As I said, she is at the present time with limited weightbearing at best on the right lower extremity, orthopedist following. PATIENT'S NAME: PORTIA FRY [facility] AGE: 80 Y [address] ROOM: [place] [address] LOCATION: [facility] ADMIT DATE: 05/06/2016 History & Physical DISCHARGE DATE: FAMILY PHYSICIAN: CAROLYN NOGUERA MD ATTENDING PHYSICIAN: Jhon Mcdonough MEDICATIONS: She is on the following medications at the present time. 1. Norvasc 5 mg p.o. b.i.d. 2. Aspirin 81 mg p.o. at bedtime. 3. Lipitor 20 mg p.o. daily. 4. TriCor 160 mg p.o. daily. 5. Benazepril hydrochloride 10 mg in the morning. 6. Vitamin B12 1000 mcg p.o. daily. 7. Colace 100 mg p.o. b.i.d. 8. Lovenox 40 mg subcu daily. 9. Pepcid 20 mg twice daily. 10. Feosol 325 mg p.o. daily, at bedtime. 11. Levemir 7 units subcu in the morning. 12. NovoLog insulin, moderate scale per protocol. 13. Levothroid 100 mcg p.o. daily in a.m. 14. Theragran-M 1 tablet p.o. daily. 15. Nitroglycerin 0.2 mg p.o. q.a.m., can take off at night. The patient's home medication, 1. [place] eyedrops, ophthalmic, one drop twice daily. 2. Tylenol 1000 mg p.o. q.6 hours for pain. Do not exceed acetaminophen 4 g q.24 hours. 3. [place] 10/325 one tab p.o. q.3 hours. Do not exceed acetaminophen 4 g q.24 hours. 4. Dulcolax suppository 10 mg rectally p.r.n. 5. Valium 2 mg p.o. q.2 hours p.r.n. as needed. 6. Glucagon 1 mg subcu p.r.n. as needed. 7. Glucose 16 g p.o. as needed for hypoglycemia p.r.n. 8. Milk of magnesia 30 mL p.o. p.r.n. 9. Os-Mahendra D 500 mg p.o. daily. 10. Centrum Silver 1 tab p.o. daily. At the present time, we have been advised during my dictation that weightbearing per orthopedist is now 50 pounds on the right lower extremity. We will put her on intensive PT/OT 3 hours per day, 15 hours per week, for 2 weeks or so, aiming to discharge home on modified independence. Keep her on ADA 1800 calorie diet. In a.m., we will send for urinalysis with reflex microscopy. CBC with automated differential. CMS. PATIENT'S NAME: PORTIA FRY [facility] AGE: 80 Y [address] ROOM: [place] [address] LOCATION: [facility] ADMIT DATE: 05/06/2016 History & Physical DISCHARGE DATE: FAMILY PHYSICIAN: CAROLYN NOGUERA MD ATTENDING PHYSICIAN: Jhon Mcdonough Prealbumin, we will send for Accu-Chek a.c. and at bedtime. We will keep on Dr. Clemons and Dr. Brian rodriguez to follow and Dr. Noguera to follow as necessary. All the above was explained to her in detail. She verbalized understanding and in agreement with plan of care. JHON MCDONOUGH MD WMS/modl /[id number] D: [id number] T: [id number] HISTORY & PHYSICAL
[~2016-05-06 10:31] MED LIST changes: +NORCO 5-325 TA1 EACH PO
--- NOTE | 2016-05-06 16:57 | NUR ---
Significant Event:Pt arrived on unit @ 1010, per wheel chair accompanied by nurse Madiha GARY and transport. Weighed with wheel chair. Pt alert and orientated x 3, expresses needs well, good historian. Pt reported she has chronic pain in Right hip, lower back, and radiates down right thigh to knee sometimes. Dr Clemons did come in and inject right hip here @ noon as did not have time to do on previous unit where the order was written. Erin GARY assisted with injection. Pt has refused neeed of pain meds as of this time. Pt to be no wt bearing on right foot, has soft cast on, and to eventually graduate to the walking boot. Has been 2 assist pivot. Diet ADA, feeds self, takes meds whole without difficulty. Wears glasses with left eye blind, and glaucoma right eye, drops in med cupboard. Has upper and lower dentures. 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 Bruising right foot and swollen, cast clean and dry, no drainage. Last BM 05/05/16. Skin dry and intact with multiple bruising from fall. Pt reports she went to the ER for right hip/back pain, they gave her pain med, she went home. She reported the pain med made her lightheaded, she fell x2, then she slipped, and that was what fractured her ankle. Reports she did not have any falls before this. Also reported her 12+ old dog Trot, had to be put down after she came in as he was in a lot of pain. Reports he was her best company, and she was lonely @ home, with some depression a few times a week. Reports her family might be looking assisted living for her, instead of going home. Encouraged pt that this would provide her with people she could visit with, and make new friends pt has been pleasant and cooperative with plan of care. Follow up:
--- NOTE | 2016-05-06 17:22 | NUR ---
Significant Event:Pt attended therapy with good tolerance, she reported they gave her a work out. Pt can now put 50 # pressure on right foot. Pt was transfered to the , able to do with 1 assist, now more steady on feet short distance. Walker in room. Elevated legs, ice to right ankle. Daughter here this afternoon, plans to bring more clothes in for pt. Daughter and Pt went through her purse to be sure no valuibles in purse, daughter will take home if there is. Pt has been pleasant and cooperative with plan of care. Dr Clemons did right hip injection @ 1230, assisted by Erin GARY. Bandage covers sight. Follow up:pain control, 50# pressure only on right leg, need admission ua, pneumatic leg pumps for tonight.
[2016-05-06 19:30] LABS: BILIRUBIN URINE NEGATIVE (NEGATIVE); BLOOD URINE NEGATIVE /UL (NEGATIVE); COLOR URINE YELLOW (YELLOW); GLUCOSE URINE NEGATIVE (NEGATIVE); KETONE URINE NEGATIVE (NEGATIVE); LEUKOCYTES URINE 25 /UL (NEGATIVE); NITRITE URINE NEGATIVE (NEGATIVE); PROTEIN URINE 30 mg/dL (NEGATIVE); SPEC GRAVITY URINE 1.005 (1.003-1.035); TURBIDITY URINE CLEAR (CLEAR); UROBILINOGEN URINE NORMAL (NORMAL)
[2016-05-06 19:55] LABS: BACTERIA URINE NEGATIVE (NEGATIVE); RBC URINE NEGATIVE #/HPF (NEGATIVE)
--- NOTE | 2016-05-07 05:20 | NUR ---
Alert and oriented. Very pleasant and cooperative with cares. Calls for assistance as needed. Up with one assist and walker, 50% wt bearing on rt foot. Voided 1x on bedpan. Takes [place] 1 tab for pain at bedtime and slept well. Good relief from rt hip injection done yest. Pain now in lower rt leg between knee and ankle only. HS accucheck = 262. 6 units Novolin given.
[2016-05-07 05:43] LABS: BASOPHIL # 0.1 K/uL (0.0-0.2); BASOPHIL % 0.7 %; EOSINOPHIL # 0.2 K/uL (0.0-0.5); EOSINOPHIL % 3.2 %; HEMATOCRIT 25.7 % (33.0-46.0); HEMOGLOBIN 8.1 g/dL (10.0-15.0); IMMATURE GRANULOCYTE % 0.1 %; LYMPHOCYTE # 0.8 K/uL (0.8-4.0); LYMPHOCYTE % 10.7 %; MCH 29.7 pg (27.0-34.0); MCHC 31.5 gm/dL (32.0-36.5); MCV 94.1 fl (83.0-98.0); MONOCYTE # 0.7 K/uL (0.0-1.0); MONOCYTE % 10.3 %; MPV 9.8 fl (9.4-12.4); NEUTROPHIL # (ANC) 5.3 K/uL (1.8-7.8); NRBC % 0 /100WBC (0-0.00); PLATELET COUNT 508 K/uL (150-450); RBC 2.73 M/uL (3.50-5.50); WBC 7.1 K/uL (4.0-11.0)
[2016-05-07 05:59] LABS: ALBUMIN 2.5 gm/dL (3.5-5.0); ANION GAP 13.1 (10.0-19.0); CALCIUM 9.1 mg/dL (8.5-10.5); CREATININE 1.4 mg/dL (0.5-1.1); POTASSIUM 5.1 mMol/L (3.7-5.1); TOTAL BILIRUBIN 0.2 mg/dL (0.0-1.5); TOTAL PROTEIN 6.5 g/dL (6.0-8.4)
--- NOTE | 2016-05-07 13:17 | NUR ---
Significant Event: PATIENT ALERT AND ORIENTED X3. UP 1 ASSIST, WALKER, GAIT BELT. 50 LB WT BEARING TO RIGHT LEG. AIR CAST TO RIGHT LOWER LEG INTACT. IV TO LEFT WRIST. VITALS STABLE ON ROOM AIR. NORCO PRN FOR PAIN. ACHS ACCUCHECKS, WAS 161 AND 329 TODAY. RECEIVES SLIDING SCALE AND LEVEMIR. NITRO PATCH TO LEFT CHEST. CONTINENT OF BOWEL AND BLADDER, CALLS APPROPRIATELY. Follow up:
--- NOTE | 2016-05-08 03:25 | NUR ---
Significant Event: Patient is very talkative and pleasant. Uses call light appropriately. Up one assist with GB/Walker. Is only 50 lb weight bearing to her right foot. Has a soft splint to her right foot. Accu checks AC&HS. Last night was 168. Nitro patch on in am off at HS. [place] for pain last at 2330. Ice was applied to her foot for swelling and pain relief. States she thinks she over did it in Therapy yesterday. IV came out while she slept last night. No further IV access. Follow up:
--- NOTE | 2016-05-08 15:03 | NUR ---
Significant Event: PATIENT UP 1 ASSIST, WALKER, GAIT BELT, 75% WT BEARING TO RIGHT LEG, AIR CAST IN PLACE. NORCO FOR PAIN PRN. VITALS STABLE ON ROOM AIR. ALERT AND ORIENTED X3. CALLS APPROPRIATELY. NO IV ACCESS. VARIOUS VISITORS TODAY AND ATTENDED THERAPY. ACHS ACCUCHECKS: WAS 134 AND 323 TODAY. RECEIVES LEVEMIR AND SLIDING SCALE. Follow up:
--- NOTE | 2016-05-09 02:35 | NUR ---
Significant Event: Patient A&O, VSS. Has issues with pain to her left thigh and back. Takes [place] 10/325 mg, last dose at 0. Has been using ice to her right ankle. Has a soft splint in place to the ankle. 75 lb weight bearing allowed. Has been able to ambulate into the bathroom 1 assist GB/Walker. Accu checks AC&HS. Did have a low BS yesterday afternoon. Last night BS was 211 given 4 units of insulin and a snack. Was worried her BS had dropped again at 2345. Did a PRN accu check it was 134. Follow up:
--- NOTE | 2016-05-09 15:25 | NUR ---
Significant Event: PATIENT ALERT AND ORIENTED X3. UP 1 ASSIST, WALKER, GAIT BELT. UP TO BATHROOM, CONTINENT OF BOWEL AND BLADDER. TOLERATES ACTIVITY WELL. FEEDS SELF WELL. VITALS STABLE ON ROOM AIR. AIR CAST TO RIGHT LEG, 75 LB WT BEARING. ACHS ACCUCHECKS. NITRO PATCH TO LEFT CHEST. NORCO FOR PAIN TO RIGHT LEG. Follow up:
--- NOTE | 2016-05-10 03:02 | NUR ---
Significant Event: Patient is alert and oriented, VSS. Has soft splint to her right foot. Requests ice sometimes. 75 lb weight bearing. Up to ambulate with 1 assist GB/Walker. Accu check AC&HS, last night was 194. Has had issues with pain to her right hip and thigh the past couple days when she slept in bed, last night she slept in the chair with better pain relief. Last [place] given at 0220. Is continent of bowel and bladder. Takes meds whole. a Follow up:
--- NOTE | 2016-05-10 08:30 | NUR ---
D: Therapeutic Recreation Initial Assessment on the 05/10/16. I: Patient seen for 2 units at 830 to begin initial evaluation. R: Patient's current living situation and status: trail in town Home entrance steps: 3 with railing Living with: alone Spouses name: # of children: 5 (3 close by) Driving: no, family provide transportation on [employer] bus Ambulating: mod I Equipment: walker, cane Hand Dominance: Right Station Detective strength: R) side tremors Eye sight: glasses, L) legally bland - R) glaucoma (magnifying glass) Reading ability: N/T Hearing: no problem Speech: clear Cognition: alert Comprehension: good Following directions: yes Initiating: yes Eye contact: good Affect: bright COMMUNITY INVOLVEMENT: grocery shopping, out to eat, visit family and friends, appointments LEISURE INTERESTS: watch TV, read newspaper, just lost dog, cat - drako, Talking Books Patient is referred by medical staff for treatment and evaluation in the following areas: Community Skills, Functional Leisure Skills, Participation, Leisure Education/Behaviors, Family Education. Information obtained: Interview, Chart Review, Observation, other. BARRIERS TO LEISURE: Financial, Physical, Lifestyle (reports some problems with depression now) Transportation Patient determined to be: APPROPRIATE FOR THERAPEUTIC RECREATION ASSESSMENT. TREATMENT WILL INCLUDE: Community living skills training Functional leisure development Physical skills development Leisure education Emotional/behavioral adaptation Family education Community resources/packet TARGET EQUIPMENT/INFORMATION: Parking Permit to assess need Community Resources Energy conservation in community setting Van/Service/Taxi Scrip Adapted Leisure Equipment Stress management/Relaxation techniques Functional car transfers Leisure Education Behaviors: Attitude, Awareness, Participation. Patient functional skills level and potential: Good, pt demonstrates fair mobility with concerns for coping and depression per pt's report. Patient oriented ot TR services on Rehab unit. Pt/family provided input into goals setting and plan of care. Pt's goal is to return to walking I. P: Target date set with personal goals established. Will continue with POC focusing on pt/family training and education. For additional information please see Nursing Data Base, PT, OT, CM, initial assessments to [facility] and Interdisciplinary Assessments.
--- NOTE | 2016-05-10 13:18 | NUR ---
Significant Event:PT ALERT AND ORIENTATED, LIMITED VISION, AND GETS EYE GTTS. PT EXPRESSES HER NEEDS WELL, AND NAVIGATES WELL WHEN UP WITH WALKER AND 1 ASSIST. sTILL HAS LIMITED 75 # WT BEARING ON RIGHT ANKLE. CONTINUES TO HAVE SOFT SPLIT CAST INTACT WITH NO NOTED DRAINAGE ON RIGHT ANKLE/FOOT. LAST NOC PT REPORTED THE RECLINER/IRIS CUSHION WAS MORE COMFORTABLE FOR HER LOW BACK/RIGHT HIP SO SHE SLEPT ALL NOC IN HER RECLINER. aCCUCHECK AC/HS. MULTIPLE BRUISES FROM PRE-ADMIT FALL HEALING. HAS ELBOW PROTECTORS ON, PT ELBOW WERE RED FROM USEING HER ELBOW TO PUSH HERSELF AROUND IN BED. PT HAS RIGHT FACIAL DROOP, WHICH SHE HAS HAD FOR SEVERAL YEARS. tAKES HER MEDS WHOLE SWALLOWS WITHOUT DIFFICULTY. 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 PT HAS BEEN PLESANT AND COOPERATIVE WITH PLAN OF CARE. Follow up:PAIN CONTROL, RIGHT ANKLE/FOOT SOFT SPLIT CAST WITH 75 # WT BEARING.
--- NOTE | 2016-05-11 03:51 | NUR ---
Significant Event: A&Ox3, VSS on room air. Transfers with 1PA-SBA with walker/GB. Cast to right foot/ankle intact. Generalized pain to right lower extremitiy joints. [place], 1tab, given X2 for pain control with relief noted. Ice placed to right knee per patient request. Patient slept in chair. Pleasant and cooperative with cares. Follow up:
--- NOTE | 2016-05-11 11:30 | NUR ---
A-SCREENED D/T LOS; NEW ADMIT TO [facility] S/P FX ANKLE; IN A SOFT SPLINT CAST. 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 ADMIT WT: 58.43 KG (WHEELCHAIR SCALE). CBW: 53.3 KG (STANDING SCALE). HT 62 IN. BMI: 23.5 LABS: NA 137, K+ 5.0, GLU 137, BUN 30, TURRET LATHE MACHINIST 1.4, ALB 2.5, PREALB 12.0 MEDS: PRN BOWEL MEDS, NORCO, PEPCID, MVI, OSCAL+D, VIT B12, LIPITOR, TRICOR, FEOSOL, COLACE DIET RX: CONSISTENT CARB. PO INTAKE 75-100%; MOSTLY 100%. EXPECT TO SEE IMPROVEMENT IN PREALB WITH CONTINUED GOOD PO INTAKE. EST NUTR NEEDS: 3119-0017 KCALS (25-30 KCALS/KG) 53-64 GM PROTEIN (1.0-1.2 GM/KG) 1 ML FLUID/KCAL D-NOT AT NUTRITION RISK AT THIS TIME; NO NUTRITION DX I-CONTINUE W/CURRENT DIET RX M/E-GOAL: PO INTAKE >/=75% FOR DURATION OF ADMIT 1)F/U PO INTAKE, WT, LABS, AND POC IN 6-8 DAYS 2)ASSIST NEEDED
--- NOTE | 2016-05-11 13:56 | NUR ---
Significant Event: PT ALERT AND ORIENTED. PT TRANSFERS WITH 1 ASSIST STANDBY WITH WALKER, CAST TO RT FOOT/ANKLE INTACT. NORCO FOR PAIN THIS AM PRIOR TO THERAPY. BLIND IN LT EYE. PLEASANT AND COOPERTIVE WITH CARES. Follow up:
--- NOTE | 2016-05-11 16:14 | NUR ---
D: TR progress note for 05/11/16. I: Pt seen for 2 units at 835 for leisure education, coping strategies, functional mobility and visual scanning. R: Pt seen functional skills building working on use of leisure involvement to promote recovery and for coping to increase independence in all task. Education and demonstration done on use of leisure involvement at [facility] using recreational task for coping strategies, to assist with adjustment to new living environment along with rapport building to peers/staff plus to prompt recovery. Multiple options demonstrated due concerns with visual deficits including (pokeno, cards, bingo, color dominoes, noel cards). P: Will continue to see to address goals and plan of care.
--- NOTE | 2016-05-12 04:07 | NUR ---
Significant Event: A&Ox3, VSS on room air. Soft cast to right ankle/foot. Pain controlled with ice and [place]. Transfers with SBA to bathroom. Low BG at 0100. Patient was able to recognize her blood sugar was low, ate a snack and BG came up to 85. Slept in bed tonight. Pleasant and cooperative with cares. Follow up:
--- NOTE | 2016-05-12 10:53 | NUR ---
D: TR progress note for 05/12/16. I: Pt seen for 2 units at 1003 for leisure education/participation, coping skills and education on adaptive equipment. R: Pt seen for functional skills building working on scanning, coping and education and demonstration done on leisure adaptive equipment for leisure task to increase independence with leisure activities. Education and review done on operating digital Talking Books as pt has Talking Books but different model. Pt independent with operating machine which included loading/unloading cassette, powering up/down, start/stop and volume. Will continue with adaptive education for leisure needs. P: Will continue to see to address goals and plan of care.
--- NOTE | 2016-05-12 11:00 | NUR ---
Diabetes consult: Nursing reports patient with low blood sugars last at midnight in the 50's. Elevated to 85 after treatment. Patient is receiving Novolin R moderate correction. Her HS blood sugar was 201 and she was given 4 units which may be contributing to her low blood sugars. Recommend changing Novolin R to Novolog and correction scale to mild. Nursing to call Dr. Pillai prior to dosing correction scale insulin for lunch.
--- NOTE | 2016-05-12 14:52 | NUR ---
Significant Event: Patient alert and oriented x 3. Up with 1A gait belt and walker. [place] given at 0848. Soft cast to R) foot/ankle. 75% weight bearing to right leg. Insulin changed to novolog and changed to mild scale. Accuchecks ACHS. BS 213 at lunch. 2 Units given. Cooperative with cares. Follow up:
--- NOTE | 2016-05-13 03:40 | NUR ---
Significant Event: Patient alert and oriented. VSS. Up one assist with GB/walker. Gait steady. Has issues with pain to her right hip and knee. Uses ice for comfort. Distant given x 2, last dose at 0300. Accu checks AC&HS. Last night 198. Insulin has been changed to Novolog and is now on a mild sliding scale. Has had a couple low BS before the change. Has slept in bed all night but was having pain. 75 lb weight bearing to her right foot. Has soft splint to her right foot. Follow up:
--- NOTE | 2016-05-13 14:23 | NUR ---
[facility] Case Management Prefunctioning and Psycho-Social Initial Assessment for 05/06/16 and Case conference note for 05/11/16 D: Initial [employer] Repairer and case conference note. I: Input from: patient, son, daughter, Dr. Segal, Mckayla Ty [facility] R: Reason for admission: 04/30/16 ORIF right ankle. Fractured in a fall. Admission Date to [facility]: 05/06/16 Admission Date to Hospital: 05/04/16 Prior level of functioning: patient was independent with adl's prior to fall. Used a 4WW out in the community. Prior living situation: one story house. Financial resources/expectations: patient has Medicare and BC/BS. Applying for Medicaid. Resources used: 4 wheeled walker Resources available: [facility], outpatient therapy. Family support available: daughter/son Understands nature of health condition: yes Recognizes impact of health condition on lifestyle: yes Vocational/Educational: retired Behavior/Emotional needs: cues for safety. Monitor for signs and symptoms of depression and anxiety. Legal concerns: none. Discharge goal: home with support. Assessment: Rosemary is a 80 year old woman from [place], [place] admitted after a fall with fracture. Plan is for patient to d/c to an [facility] in the community. Daughter toured all places and plan is d/c next week to [facility]. Info. faxed to [facility]. Will follow and assist as needed. Admission paperwork and orientation to the program and CM services completed with Rosemary. Initial plan of care and estimated length of stay discussed, disclosure statement reviewed including patient assessment rights. P: Target date and individual goals established. Please see POC for details. For additional information please see Nursing Data Base, PT, OT, TR, Initial assessments to [facility].
--- NOTE | 2016-05-13 14:50 | NUR ---
Significant Event: PATIENT ALERT AND ORIENTED X3. UP 1 ASSIST, WALKER, GAIT BELT. PILLS WHOLE WITH WATER. NORCO PRN FOR RIGHT LEG PAIN. CONTINENT OF BOWEL AND BLADDER. ELBOW GUARDS ON. ACHS ACCUCHECKS. COOPERATIVE WITH CARES. CONCERNED WITH HAVING A ROOMMATE. HYPERTENSIVE AT TIMES, RECEIVES ANTIHYPERTENSIVE MEDS. Follow up:
--- NOTE | 2016-05-14 03:51 | NUR ---
A/O x 3. OOB in recliner until 2229. Pleasant. Cooperative. Medicated for pain at HS and about 0230. 1 assist using walker. Cast on RLE intact with good circulation. Rested well.
--- NOTE | 2016-05-14 11:55 | NUR ---
DIABETES CONSULT: Patient has had no further episodes of hypoglycemia since insulin was changed to Novolog. Blood sugars are stable at 133-186. Will continue to follow.
--- NOTE | 2016-05-14 14:44 | NUR ---
Significant Event: PATIENT UP 1 ASSIST, WALKER, GAIT BELT, 75% WT BEARING TO RIGHT LEG. USING KPAD TO UPPER RIGHT LEG AND ICE TO ANKLE FOR PAIN CONTROL. NORCO GIVEN X2 TODAY. ALERT AND ORIENTED X3. ACHS ACCUCHECKS. VITALS STABLE ON ROOM AIR. FEEDS SELF WELL, PILLS WHOLE WITH WATER. NITRO PATCH TO LEFT CHEST INTACT, WILL BE REMOVED ON TELEPHONE MESSENGER PER MAY. Follow up:
--- NOTE | 2016-05-15 03:42 | NUR ---
Significant Event:Up in room/bathroom with minimal assist using walker/wheelchair, can bear up to 75% on rt foot. Split cast/wrap intact to rt lower leg/ankle, no drainage visible. Elevated on pillows, using ice to rt ankle and kpad heat to rt thigh. Rates pain at 4-5, gave [place] 1 tab at 2058 and was effective along with the ice/heat. Accucheck at hs 169, no sliding scale. Cheerful/cooperative. Follow up: Plans discharge Wed to [facility]. Has own eye gtts to send with pt at time of discharge.
[2016-05-15 09:10] LABS: CREATININE 1.4 mg/dL (0.5-1.1)
--- NOTE | 2016-05-15 12:29 | NUR ---
Significant Event:Pt alert and orientated x 3 expresses needs well. Family visited this am. Eats meal in room, sets up herself with assist opening some containers. Reports she enjoys the meals. Pt reported she did not sleep well last noc, reports normally she never goes to sleep before 0300, even @ home prior to here. Reported they had the heating pad for her and ice pack on her left ankle soft splint cast, was comfortable but just did not go to sleep. Pt mod assist in room and BR, continues 75 % wt bearing on right leg only. Pt rested in recliner when does not have activity, legs elevated on pillow, and ice on right leg, and heating pad on right hip leg. Pt has been pleasant and cooperative with plan of care. Follow up:pain control, plans discharge Wed to [address]. Has own eye gtts in med tray, be sure to send home.
--- NOTE | 2016-05-16 05:38 | NUR ---
Alert and oriented. Calls for assistance as needed. Up ad sushma to bathroom. C/O increased pain to bottom of rt foot and ankle. Insists that foot be looked at as its hard for her to bare weight on foot not. Joel wrap removed and splint adjusted. Moderate bruising and area of friction rub to bottom arch of rt foot. Gauze 4x4 padding added and splint slid forward. Rewrapped with joel bandage. PLEASE have surgeon or Dr Segal look at this today! Takes [place] 3x this shift. Last given at 0520. HS accuchek = 114
--- NOTE | 2016-05-16 16:04 | NUR ---
Significant Event:Updated Dr Segal on rewraping of pt right foot last noc, requested update Malina MCKINNEY. Updated Dr Holden, who ordered to have splint removed, and apply immobilzer boot, involved Hanna Irvin who adjusted boot, and applied. Pt can full wt bear with boot on, and walked in loyd with OT. and her personal 4 wheeled walker, study on feet. Dr Clemons to make rounds tomorrow, please have him check right foot. Miplex dressing in place on right ankle, and 4x4 over inner ankle incison, which has scant serous sanganous drainage. Pt continues to complain of lower back/right hip pain, and sometimes right ankle pain, note MAR for pain meds given. Pt remains alert and orientated x 3. No changes in assessment, note charting. Note Splint cast was causing some bruising to pt arch on R foot, due the splint had not been fitting properly due to the decrease in swelling. Pt has been plesant and cooperative with plan of care. Follow up:pain control. Plans to discharge Wed to [address], be sure to send own eye gtts in med tray with pt on discharge.
--- NOTE | 2016-05-17 04:48 | NUR ---
Alert and orinted. Calls for assistance as needed. Now is full wt bearing with immobilizer boot on when up. Can be off while in bed, sitting or while in shower sitting. Rt foot very dry. Area of bottom arch of rt food bruised with friction rub present but skin still intact. One [place] given at 1999 last evening and has slept well throughout the night. Up once to void. Otqc=151 with 2 units Insulin given. Plans to discharge to [address] on Tue this week. Dr Clemons to see pt today to examin rt foot and leg still has dsing to surgical insicion on leg.
[2016-05-17 05:32] LABS: BASOPHIL % 0.8 %; EOSINOPHIL # 0.3 K/uL (0.0-0.5); EOSINOPHIL % 7.1 %; HEMOGLOBIN 9.1 g/dL (10.0-15.0); IMMATURE GRANULOCYTE % 0.4 %; LYMPHOCYTE # 0.9 K/uL (0.8-4.0); LYMPHOCYTE % 18.9 %; MCH 30.4 pg (27.0-34.0); MCHC 32.5 gm/dL (32.0-36.5); MCV 93.6 fl (83.0-98.0); MONOCYTE # 0.6 K/uL (0.0-1.0); MPV 9.7 fl (9.4-12.4); NEUTROPHIL # (ANC) 2.8 K/uL (1.8-7.8); NEUTROPHIL % 59.8 %; NRBC % 0 /100WBC (0-0.00); PLATELET COUNT 467 K/uL (150-450); RBC 2.99 M/uL (3.50-5.50); RDW-CV 13.4 % (11.9-14.6); WBC 4.8 K/uL (4.0-11.0)
[2016-05-17 05:57] LABS: ANION GAP 11.7 (10.0-19.0); CREATININE 1.4 mg/dL (0.5-1.1); POTASSIUM 4.7 mMol/L (3.7-5.1); TOTAL BILIRUBIN 0.2 mg/dL (0.0-1.5); TOTAL PROTEIN 6.8 g/dL (6.0-8.4)
--- NOTE | 2016-05-17 11:28 | NUR ---
A-NUTRITION F/U CBW 53.0 KG; WT STABLE LABS: NA 139, K+ 4.7, GLU 108, BUN 40, ASBESTOS COVERER 1.4, ALB 3.0, PREALB 21.0. PREALB UP FROM 12.0 ON 05/07 MEDS: NOVOLOG (MILD SS) DIET RX: CONSISTENT CARB. PO INTAKE 75-100%; MOSTLY 100%. EST NUTR NEEDS: 5635-9934 KCALS AND 53-64 GM PROTEIN D-REMAINS AT NO NUTRITION RISK; NO NUTRITION DX IDENTIFIED I-CONTINUE W/CURRENT DIET RX M/E-WILL ASSIST NEEDED
--- NOTE | 2016-05-17 14:33 | NUR ---
Significant Event:PATIENT ALERT AND ORIENTED THIS SHIFT. VSS. TRANSFERS INDEPENDANTLY. CALLS IF NEEDS ASSISTANCE. RESTS IN RECLINER WHEN NOT IN THERAPY. ACCU CHECK AT BRE[facility]FAST DID NOT REQUIRE ANY SLIDING SCALE. DID RECEIVE 2 UNITS AT LUNCH FOR ACCU CHECK OF 226. TAKES NORCO FOR PAIN AT TIMES. GIVEN 1 TAB PO THIS AM PRIOR TO THERAPY AT 0730. NO OTHER COMPLAINTS. Follow up:
--- NOTE | 2016-05-18 03:37 | NUR ---
Significant Event: Patient is alert and oriented, VSS. up ad sushma in room. Gets in w/c to get into the bathroom. Her soft splint has been dc'd and now wears her boot when up. Is full weight bearing now with the boot. Does have a sore on the bottom of her right foot from the soft splint she had. Mepilex dressing to her lateral right ankle. Has pain to her right hip and thigh, takes [place] for this. Uses an Aqua K pad to her thigh for pain and ice to her ankle for swelling. Sleeps in the recliner. Accu checks AC&HS. Last night 125 no SSI needed. Follow up: Discharge on Tue.
--- NOTE | 2016-05-18 16:02 | NUR ---
Significant Event:PATIENT ALERT AND ORIENTED THIS SHIFT. VSS. TRANSFERS INDEPENDANTLY. HAS DENIED PAIN TODAY. ACCU CHECK AT LUNCH WAS 224. SHE DID NOT WANT TO TAKE THE INSULIN YESTERDAY SHE DROPPED QUITE A BIT BY SUPPER TIME. TOLERATED THERAPIES WITHOUT DIFFICULTY. ORDERS RECEIVED TO REMOVE PIOTR. DONE BY WOC PRESENTATION SPECIALIST AND STERI STRIPS APPLIED. HAS SOME DRAINAGE TO TASHA SIDES NEXT TO INCISION. WOC PRESENTATION SPECIALIST CLEANED AREA UP. NO OTHER COMPLAINTS. Follow up:
--- NOTE | 2016-05-18 16:09 | NUR ---
D: TR progress note for 05/18/13. I: Pt seen for 2 units at 1330 for community integration skills building, functional transfers, and safety awareness. R: Pt seen for functional skills building working on mobility, safety, awareness and functional transfers to increase independence in anticipation for discharge back into community. Pt transferred sit > stand from WC SBA, ambulated to/from vehicle with 4WW SBA 20+ feet and transferred in/out of vehicle SBA with good safety awareness. Pt was mod I for BLE management and positioning of self with seat surface adapted using trash bag to ease task. Pt tolerated ride with no C/o pain or discomfort. P: Will continue to see to address goals and plan of care.
--- NOTE | 2016-05-19 04:37 | NUR ---
Significant Event: PATIENT IS ALERT AND ORIENTED. VSS. UP AD LUCHO. SHE CAN TRANSFER SELF TO WHEELCHAIR AND TO BATHROOM. BOOT TO RIGHT LOWER LET. MAY BE INTERMITTENTLY REMOVED WHEN AT REST. SORE TO RIGHT FOOT. MEPILEX DRESSING TO RIGHT LATERAL ANKLE. Follow up: DISCHARGE TODAY AT 1000 TO [facility].
--- NOTE | 2016-05-19 08:27 | NUR ---
PATIENT ALERT AND ORIENTED X3. FORGETFUL AT TIMES. COOPERATIVE WITH CARES, CALLS APPROPRIATELY. UP AD LUCHO WITH WALKER, WALKING BOOT TO RIGHT LEG AND 75% WEIGHT BEARING TO RIGHT LEG. DRESSING TO RIGHT ANKLE. NORCO 10-325 FOR PAIN, LAST AT 0825 TODAY. CONTINENT OF BOWEL AND BLADDER, BM YESTERDAY, 05/18. HYPERTENSIVE AT TIMES, RECEIVES ANTIHYPERTENSIVE MEDS IN AM. ACHS ACCUCHECKS, SLIDING SCALE DC'D AT DISCHARGE. 117 ACCUCHECK THIS AM. RECEIVES 7 UNITS OF LEVEMIR IN THE AM. NITRO PATCH TO RIGH CHEST APPLIED THIS AM, TO BE REMOVED THIS PM. RECEIVED FINAL DOSE OF LOVENOX TODAY. UTILIZES ICE AND HEAT TO RELIEVE PAIN IN RIGHT LEG. TOLERATES MEALS WELL, SWALLOWS PILLS WELL. RECEIVES EYE DROPS SCHEDULED, DROPS ARE PACKED IN HER BAGS TO TAKE WITH HER. PRESCRIPTIONS ARE SENT WITH HER. WILL HAVE FOLLOW UP APPOINTMENTS WITH DR. NOGUERA, DR. MCDONOUGH, AND DR. ESTRELLA. PT/OT UNTIL REEVALUATED.
--- NOTE | 2016-05-19 11:44 | NUR ---
D: TR progress note for 05/19/16. I: Pt seen for 2 units at 1100 in group session for education on pain/stress management, coping strategies, group participation and leisure education. R: Pt seen for functional skills building working on stress management, relaxation and education on signs and symptoms of depression to promote recovery. Pt actively participated in session, completed functional social communication skills independently which involved personal introduction of self and hometown. Education completed by verbal discussion on the physical stress/pain can cause the body and how it affects healing along with identification of coping strategies, relaxation techniques, and options available. Pt mod independent with mobility and transfers, shared with group about discharge and future. P: Will discharge to [facility] today, 05/19/16.
--- NOTE | 2016-05-20 09:59 | NUR ---
D: Calender Wind Up Tender Team Conference Follow up for 05/18/16 and Discharge Note for 05/19/16 I: Input from patient/family R: Met with: patient, daughter, Dr. Segal, Mckayla Ty RESEARCH DEVELOPMENT MANAGER Discussed rehab plan, patient progress, discharge plan and estimated length of stay of d/c planned to [facility] on 05/19/16 Patient/Family Preference: Patient and daughter are in agreement. Anticipated discharge disposition: [facility] Education completed: Education was completed with patient regarding length of stay, progress in therapy and d/c plan. Assessment/Recommendation: Team recommends d/c to [facility] P: Case Coordination: Rosemary is a 80 year old woman from [place], [place] admitted after an ankle fracture. Her plan is to d/c to [facility] on 05/19/16. Daughter plans to take. Patient has applied for medicaid. Will call patient next week to see how she is doing post discharge.
[2016-08-03] MEDS ORDERED: CATAPRES0.1 MG PO (10:13)
[2016-08-03] MEDS ORDERED: COLACE100 MG PO (10:13)
[2016-08-03] MEDS ORDERED: COREG25 MG PO (10:14)
[2016-08-03] MEDS ORDERED: DOXYCYCLINE100 MG PO (10:17)
[2016-08-03] MEDS ORDERED: FLORASTOR250 MG PO (10:18)
[2016-08-03] MEDS ORDERED: HYDRALAZINE HC100 MG PO (10:20)
[2016-08-03] MEDS ORDERED: LEVAQUIN500 MG PO (10:21)
[2016-08-03] MEDS ORDERED: LEXAPRO10 MG PO (10:23)
[2016-08-03] MEDS ORDERED: MELATONIN3 MG PO (10:24)
[2016-08-03] MEDS ORDERED: PEPCID20 MG PO (10:27)
[2016-08-03] MEDS ORDERED: ROCALTROL0.25 MCG PO (10:28)
[2016-08-03] MEDS ORDERED: SEROQUEL25 MG PO (10:29)
[2016-08-03] MEDS ORDERED: VITAMIN B-121000 MCG PO (10:30)
[2016-08-03] MEDS ORDERED: ONDANSETRON ODT4 MG PO (10:31)
[2016-08-03] MEDS ORDERED: DULCOLAX10 MG R (10:32)
[2016-08-03] MEDS ORDERED: GLUCAGON 1 MG PE1 MG SUB-Q (10:34)
[2016-08-03] MEDS ORDERED: GLUCOSE4 GM PO (10:36)
[2016-08-03] MEDS ORDERED: MILK OF MA400 MG/5 M PO (10:38)
[2016-08-03] MEDS ORDERED: MIRALAX PO527 GM/BOT PO (10:39)
[2016-08-03] MEDS ORDERED: XANAX0.25 MG PO (10:42)
[2016-08-11] MEDS ORDERED: OXYGEN M-15 INH (13:02)
[2016-08-11] MEDS ORDERED: SENSI-CARE PRO113 GM TOP (13:03)
== END 2016-05-19 12:34 | DRG 561 ==
LOC: GIRP 10:31
PROVIDERS: ADMIT Physical Medicine & Rehabilitation
DX: S82.841D Displaced bimalleolar fracture of right lower leg, subsequent encounter for closed fracture with routine healing (principal); E11.22 Type 2 diabetes mellitus with diabetic chronic kidney disease; W01.0XXD Fall on same level from slipping, tripping and stumbling without subsequent striking against object, subsequent encounter; R26.9 Unspecified abnormalities of gait and mobility; I12.9 Hypertensive chronic kidney disease with stage 1 through stage 4 chronic kidney disease, or unspecified chronic kidney disease; N18.9 Chronic kidney disease, unspecified; E78.5 Hyperlipidemia, unspecified; E03.9 Hypothyroidism, unspecified; I25.10 Atherosclerotic heart disease of native coronary artery without angina pectoris; H35.30 Unspecified macular degeneration; Z85.818 Personal history of malignant neoplasm of other sites of lip, oral cavity, and pharynx; Z92.3 Personal history of irradiation; E73.9 Lactose intolerance, unspecified; Z79.82 Long term (current) use of aspirin; Z79.4 Long term (current) use of insulin; M81.0 Age-related osteoporosis without current pathological fracture; M70.61 Trochanteric bursitis, right hip; Z87.891 Personal history of nicotine dependence; M19.90 Unspecified osteoarthritis, unspecified site; H40.9 Unspecified glaucoma; Z86.718 Personal history of other venous thrombosis and embolism
CPT/HCPCS: J1040; J1650

== ENCOUNTER → 2016-05-28 | Outpatient (CLI) | payer MEDICARE, BC ==
[~2016-05-28] MED LIST changes: +ALOE VESTA226 GM TOP; +CATAPRES0.1 MG PO; +COLACE100 MG PO; +COREG25 MG PO; +DOXYCYCLINE100 MG PO; +DULCOLAX10 MG R; +FLORASTOR250 MG PO; +GLUCAGON 1 MG PE1 MG SUB-Q; +GLUCOSE4 GM PO; +HYDRALAZINE HC100 MG PO; +LASIX40 MG PO; +LEVAQUIN500 MG PO; +LEXAPRO10 MG PO; +MELATONIN3 MG PO; +MILK OF MA400 MG/5 M PO; +MIRALAX PO527 GM/BOT PO; +ONDANSETRON ODT4 MG PO; +OXYGEN M-15 INH; +PEPCID20 MG PO; +ROCALTROL0.25 MCG PO; +SENSI-CARE PRO113 GM TOP; +SEROQUEL25 MG PO; +ULTRAM50 MG PO; +VITAMIN B-121000 MCG PO; +XANAX0.25 MG PO
== END | disposition disaster alternative care site (69) ==
LOC: GRAD 15:17
DX: M54.9 Dorsalgia, unspecified (principal); M25.561 Pain in right knee; M79.651 Pain in right thigh; M47.816 Spondylosis without myelopathy or radiculopathy, lumbar region; M51.26 Other intervertebral disc displacement, lumbar region

== ENCOUNTER 2016-06-02 17:35 | Inpatient (IN) | payer MEDICARE, BC, MEDICAID ==
[~2016-06-02] VITALS: Ht 157.5 cm; Wt 51.5 kg
--- NOTE | ~2016-06-02 | OR ---
PATIENT'S NAME: PORTIA FRY [facility] AGE: 80 Y [address] ROOM: [place] [address] LOCATION: [facility] [place], [place] ADMIT DATE: 06/02/2016 OR/Procedure Report DISCHARGE DATE: FAMILY PHYSICIAN: CAROLYN NOGUERA MD ATTENDING PHYSICIAN: Beau Torres SURGEON: Beau Torres MD SCHEDULE CLERK: DATE OF PROCEDURE: 06/04/2016 PREOPERATIVE DIAGNOSIS: Infected right ankle wound post open reduction and internal fixation with exposed hardware. POSTOPERATIVE DIAGNOSIS: Infected right ankle wound post open reduction and internal fixation with exposed hardware. OPERATION: Debridement and re-irrigation with placement of wound VAC. ANESTHESIA: General LMA. INDICATIONS: This patient had essentially a wound dehiscence with exposed hardware and was taken to the operating room Tuesday, 2 days ago, where her wound was debrided and wound VAC applied. She returns for a second look. DESCRIPTION OF PROCEDURE: The patient was brought to the operating room and sedated. Her wound VAC was removed, and the right lower leg was prepped and draped in an aseptic manner. The wound on the lateral and medial sides were irrigated with a total of 6 L of saline using bulb syringes. There was granulation tissue noted already forming up to the anterior and posterior aspects of the plate. There was some ligamentous tissue in the anterior aspect of the medial wound and that was debrided. There was a prominent screw in the plate and this was a nonlocking screw, so it was removed. The [facility] nurses were then consulted and they applied and a fresh wound VAC. The patient was awakened and sent to the recovery area, having tolerated the procedure well. MD WESLEY RANKIN/rayl /[id number] d: 06/04/16 2358 t: 06/09/16 0955, OPERATIVE SUMMARY
--- NOTE | ~2016-06-02 | ECHO ---
Transthoracic Echocardiography Report (TTE) Demographics Patient Name PORTIA FRY Date of Study 07/07/2016 Patient Number [id number] Visit Number [id number] Date of 1935 Room Number G3223 Accession Number [id number] Gender Female Age 80 year(s) Referring Trever DOWNEY Branch Office Manager Neyda Jauregui [facility] Physician Physician Interpreting Zachary Zheng Senior Product Development Scientist Physician A MD Supervising Ordering Physician MD/MLP Nurse Stress Office Mover Conclusions Summary Technically difficult exam. The estimated left ventricular ejection fraction is 55-60%. Diastolic assessment reveals Grade I diastolic dysfunction. Moderate concentric left ventricular hypertrophy. Inferior portion of the chordae appear thickening and calcified The left atrium is mildly dilated. Mild-moderate mitral regurgitation by color Doppler. Mild mitral annular calcification. There is mild to moderate aortic regurgitation by color Doppler. There is mild aortic stenosis by the Continuity Equation. The peak velocity is 2.38m/s, the mean gradient is 14mmHg, and the valve area based on the continuity equation is 1.58cm2, stroke volume index is 71.5ml/m2. Mild-moderate tricuspid regurgitation by color Doppler. There is severe pulmonary hypertension. The pulmonary pressure (RVSP) is 71 mmHg. Large pleural effusion. Procedure Type of Study TTE procedure:2D Echocardiogram. Procedure Date Date: 07/07/2016 Start: 02:44 PM Study Location: Inpatient Portable Indications:Edema. Appropriate Use Criteria: 9 Patient Status: Routine HR: 60 bpm BP: 143/67 mmHg M-Mode/2D Measurements LV Diastolic Dimension: 4.22 cm LV Systolic Dimension: 3.08 cm LV Septum Diastolic: 1.27 cm LV PW Diastolic: 1.34 cm AO Root Dimension: 2.3 cm Cardiac Output: 6.48 l/min AV Cusp Separation: 0.9 cm RV Diastolic Dimension: 3.1 cm LA volume: 58 ml LVOT: 1.9 cm LVOT VTI: 38.1 cm TAPSE: 2.7 cm LV Stroke volume: 107.97 ml Doppler Measurements AV Peak Velocity: 2.38 m/s MV Peak E-Wave: 1.15 m/s AV Peak Gradient: 22.66 mmHg MV Peak A-Wave: 1.35 m/s AV Mean Gradient: 14 mmHg MV E/A Ratio: 0.85 LVOT Peak Velocity: 1.26 m/s MV P1/2t: 43 msec AV P1/2t: 329 msec TR Gradient:60.53 mmHg PV Peak Velocity: 1.22 m/s Estimated RAP:10 mmHg PV Peak Gradient: 5.95 mmHg Estimated RVSP: 71 mmHg Estimated PASP: 70.53 mmHg E' Septal Velocity: 0.05 m/s A' Septal Velocity: 0.12 m/s E' Lateral Velocity: 0.09 m/s A' Lateral Velocity: 0.13 m/s Findings Left Ventricle Diastolic assessment reveals Grade I diastolic dysfunction. Moderate concentric left ventricular hypertrophy. Inferior portion of the chordae appear thickening and calcified Right Ventricle Normal right ventricular size and function. Left Atrium The left atrium is mildly dilated. Right Atrium IVC measures 2.07 cm with inspiratory collapse. Mitral Valve Mild-moderate mitral regurgitation by color Doppler. Mild mitral annular calcification. Aortic Valve There is mild to moderate aortic regurgitation by color Doppler. There is mild aortic stenosis by the Continuity Equation. The peak velocity is 2.38m/s, the mean gradient is 14mmHg, and the valve area based on the continuity equation is 1.58cm2, stroke volume index is 71.5ml/m2. Possibly bicuspid aortic valve. Tricuspid Valve Mild-moderate tricuspid regurgitation by color Doppler. There is severe pulmonary hypertension. The pulmonary pressure (RVSP) is 71 mmHg. Pulmonic Valve Normal pulmonic valve structure and function. Pericardial Effusion No evidence of pericardial effusion. Pleural Effusion Large pleural effusion. Signature dtt: Cleve Sharma dtd: 07/07/16 1444 Physician Self Edit
--- NOTE | ~2016-06-02 | ENPV ---
Vascular Lower Extremities Arterial Duplex and Lower Arterial Plethysmography Procedure Demographics Patient Name PORTIA FRY Date of Study 06/03/2016 Patient Number [id number] Gender Female Date of 1935 Age 80 Visit Number [id number] Height Accession Number [id number] Weight Room Number G3216 BSA BMI Referring Brian Nieto MD Physician MD Physician Te Nieto MD Physician Ordering Physician Te Nieto Order Dispatcher Chief Executive Or Managing Director Kaden Iyer T Conclusions Summary Duplex imaging of the right leg suggests mild diffuse disease in the right posterior tibial artery(s) . Duplex imaging of the left leg suggests mild diffuse disease in the left posterior tibial artery(s) . Ankle brachial index on the right is .95 no significant arterial disease at rest. Ankle brachial index on the left is 1.0 no significant arterial disease at rest. The toe brachial index on the right is .78 which is normal . The toe brachial index on the left is .57 which is abnormal suggesting mild peripheral arterial disease . Procedure Type of Study: Extremities Arteries:Lower Extremities Arterial Duplex, Arterial Duplex Lower Extremity Bilateral, Lower Arterial Plethysmography, Ankle/Brachial Indicies. Indications for Study:Non Healing Wounds. Appropriate Use Criteria:9 Patient Status:STAT. Study Location:Inpatient Portable. Technical Quality:Adequate visualization. Velocities are measured in cm/s ; Diameters are measured in cm Pressures + +----+ +---------+--------+ + + ! ! !Right ! !Left ! ! ! + +----+ +---------+--------+ + + !Location ! !Pressure !Ratio ! !Pressure !Ratio ! + +----+ +---------+--------+ + + !Ankle PT ! !192 !0.95 ! !183 !0.9 ! + +----+ +---------+--------+ + + !DP ! !0 !0 ! !203 !1 ! + +----+ +---------+--------+ + + - Brachial Pressure:Right: 203.Left:195. - MICHA:Right: 0.95.Left: 1. Velocities are measured in cm/s ; Diameters are measured in cm LE Duplex Measurements + ++-----+ +----+---+ + ! !!Right! !Left! ! ! + ++-----+ +----+---+ + !Location !!PSV !Wave Desc. ! !PSV!Wave Desc. ! + ++-----+ +----+---+ + !Femoral !!111 !Biphasic ! !108!Biphasic ! + ++-----+ +----+---+ + !PFA !!88 !Biphasic ! !88 !Biphasic ! + ++-----+ +----+---+ + !Prox SFA !!98 !Biphasic ! !113!Biphasic ! + ++-----+ +----+---+ + !Mid SFA !!130 !Biphasic ! !143!Biphasic ! + ++-----+ +----+---+ + !Dist SFA !!120 !Biphasic ! !150!Biphasic ! + ++-----+ +----+---+ + !Prox Popliteal !!189 !Biphasic ! !117!Biphasic ! + ++-----+ +----+---+ + !Dist Popliteal !!132 !Biphasic ! !94 !Biphasic ! + ++-----+ +----+---+ + !Prox PARK RECREATION MANAGER !!107 !Biphasic ! !68 !Biphasic ! + ++-----+ +----+---+ + !Mid PARK RECREATION MANAGER !!112 !Biphasic ! !27 !Biphasic ! + ++-----+ +----+---+ + !DP !!52 !Biphasic ! !125!Biphasic ! + ++-----+ +----+---+ + Signature dtt: JUANITO LOPEZ dtd: 06/03/16 1247 Physician Self Edit
--- NOTE | ~2016-06-02 | OR ---
[facility] 80 Y [address] ROOM: [address] [address] LOCATION: [facility] ADMIT DATE: 06/02/2016 OR/Procedure Report DISCHARGE DATE: FAMILY PHYSICIAN: CAROLYN NOGUERA MD ATTENDING PHYSICIAN: Beau Gunn SURGEON: Beau Gunn MD GENERAL OPERATIONS MANAGER: DATE OF PROCEDURE: 06/02/2016 PREOPERATIVE DIAGNOSIS: Infected exposed hardware, right ankle after open reduction and internal fixation. POSTOPERATIVE DIAGNOSIS: Infected exposed hardware, right ankle after open reduction and internal fixation. OPERATION: Debridement and irrigation of right ankle wounds with placement of wound VAC by [facility] nurse. INDICATIONS: This is a 80-year-old, diabetic female, who fell over a month ago sustaining a bimalleolar fracture of her right ankle. She was treated with ORIF and was kept in the hospital in [facility] for some 2-3 weeks postop. She returned to clinic today with exposed lateral ankle hardware and necrotic tissue over her medial wound as well. DESCRIPTION OF PROCEDURE: The patient was brought to the operating room, and when satisfactory spinal anesthesia had been established, her right lower extremity was prepped and draped in an aseptic manner. There was tissue over the lateral wound and there was about 2 cm of the distal end of the lateral plate exposed. The entire wound was opened and virtually the entire plate was exposed directly under the wounds. The tissue was debrided. Culturettes were to used to take cultures from around the plate. Soft tissue deep, from around the plate, and the edges of the wound were sent for cultures as well. The plate and lateral wound were irrigated with 6 L of saline using the bulb syringes. The medial wound was then excised and that led down to one of the medial screws as well. Samples of tissue from the deep wound were taken and sent for cultures. That wound was irrigated with a liter of saline. Wound VAC was then applied by the [facility] nurse, and the patient was sent to the recovery area, having tolerated the procedure well. EBAU GUNN MD CEW/modl [facility] 80 Y [address] ROOM: [address] [address] LOCATION: [facility] ADMIT DATE: 06/02/2016 OR/Procedure Report DISCHARGE DATE: FAMILY PHYSICIAN: CAROLYN NOGUERA MD ATTENDING PHYSICIAN: Beau Gunn /[id number] d: 06/03/16 0152 t: 06/09/16 0952, OPERATIVE SUMMARY
--- NOTE | ~2016-06-02 | CON ---
PATIENT'S NAME: PORTIA SAVAGE [facility] AGE: 80 Y [address] ROOM: [address] [address] [place] [facility] [place] DATE: 06/02/2016 Consultation DISCHARGE DATE: FAMILY PHYSICIAN: CAROLYN NOGUERA MD ATTENDING PHYSICIAN: Beau Torrse DATE OF CONSULTATION: 06/09/2016 REFERRING PHYSICIAN: Beau Torres MD REASON FOR CONSULTATION: Right ankle infection. SUBJECTIVE: Ms. Savage is a very pleasant, 80-year-old female, whom I was asked see today in consultation by Dr. Beau Torres for further evaluation of a right ankle infection. Ms. Savage sustained a bimalleolar fracture and underwent open reduction and internal fixation on 04/30/2016. Her wound continued to remain open and had drainage, and she was eventually diagnosed with infection of the ankle. She underwent an incision and drainage and debridement on 06/02/2016, with cultures as noted below. She was noted to have exposure of the plates. She is currently on levofloxacin and vancomycin, which she is tolerating without untoward side effects. By report, the wound looks reasonably clean, though there is still some hardware exposure. PAST MEDICAL HISTORY: As above, also distant history of throat cancer, coronary artery disease, hypothyroidism, type 2 diabetes, dyslipidemia, and hypertension. ALLERGIES: NONE NOTED. CURRENT MEDICATIONS: See the MAR for complete listing. Current antibiotics are vancomycin and levofloxacin, both IV. SOCIAL HISTORY: No tobacco or alcohol abuse history. FAMILY HISTORY: Unremarkable and noncontributory to current illness. REVIEW OF SYSTEMS: A complete review of systems is carried out, and was remarkable only as noted. Please refer to the admission history and physical for complete details. PATIENT'S NAME: PORTIA SAVAGE [facility] AGE: 80 Y [address] [place] [facility] [place] [address] [place] [facility] [place] DATE: 06/02/2016 Consultation DISCHARGE DATE: FAMILY PHYSICIAN: CAROLYN NOGUERA MD ATTENDING PHYSICIAN: Beau Torres OBJECTIVE: GENERAL: She appeared pleasant and comfortable and was in no distress. VITAL SIGNS: Temperature is 36.8, blood pressure 182/74, and pulse 66. HEENT: Posterior pharynx clear, no adenopathy or thyromegaly. Cranial nerves are intact. NECK: Supple. CHEST: Clear to auscultation. CARDIOVASCULAR: Regular rate and rhythm without S3, S4, or murmur. ABDOMEN: Soft and nontender without hepatosplenomegaly or masses. EXTREMITIES: The right ankle wound had a VAC in place and was wrapped. The wound was not available for detailed examination. NEUROLOGIC: Strength and sensation grossly intact. PSYCHIATRIC: Behavior and affect are appropriate. LABORATORY DATA: Creatinine 0.9. Liver function tests normal. CRP is less than 0.29. White count is 8.4. Sedimentation rate is 66. MICROBIOLOGY: Wound cultures, 06/02/2016, show Staphylococcus epidermidis, Pseudomonas aeruginosa, and diphtheroids. Susceptibilities are as noted. IMPRESSION: Right ankle bimalleolar fracture with subsequent infection involving hardware. In my experience, ankle infections with hardware are extremely difficult if not impossible to resolve, and I am skeptical that the hardware can be salvaged. There is a possibility of keeping the hardware in place until the bones fuse, but I feel that there is a high risk for nonunion of the fracture as well. Nevertheless, given her comorbidities and the risks involved with removing hardware and creating an unstable joint, I think it would be reasonable to give a trial of therapy and see how she does, with the understanding that this might fail and necessitate further surgery. The possibility of an amputation is significant in this situation. Other diagnoses are stable, as noted above. PLAN: We will continue with current antibiotics--vancomycin 750 mg IV daily and levofloxacin 500 mg orally daily (her creatinine is normal, and a recent ECG showed a normal QTc interval). We will plan on 6 weeks of antibiotics, with appropriate monitoring during that time period. We will see her back in the next week if inpatient, in 2 weeks if she is discharged. PATIENT'S NAME: PORTIA SAVAGE [facility] AGE: 80 Y [address] ROOM: [place] [address] [place] [facility] [place] DATE: 06/02/2016 Consultation DISCHARGE DATE: FAMILY PHYSICIAN: CAROLYN NOGUERA MD ATTENDING PHYSICIAN: Beau Torres Thank you for this consultation. I am available to discuss the case by phone at [phone]. MD SUKUMAR RAMSAY/rayl /[id number] CC: Beau Torres MD d: 06/09/16 2220 t: 06/10/16 0815, CONSULTATION REPORT
--- NOTE | ~2016-06-02 | ENPV ---
Vascular Lower Extremities DVT Study Procedure Demographics Patient Name PORTIA FRY Date of Study 06/20/2016 Patient Number [id number] Gender Female Date of 1935 Age 80 Visit Number [id number] Height Accession Number [id number] Weight Room Number G3223 BSA BMI Referring Interpreting Te Nieto MD Physician Physician Physician Ordering Physician Santo Florez MD Retail Coverage Merchandiser Organizational Development Consultant Neyda Jauregui [facility] Conclusions Summary Bilaterally negative for DVT Procedure Type of Study: Veins:Lower Extremities DVT Study, Venous Duplex Lower Extremity Bilateral. Appropriate Use Criteria:7 Patient Status:Routine. Study Location:Inpatient Portable. - Preliminary reported to:[facility]. Velocities are measured in cm/s ; Diameters are measured in cm Right Lower Extremities DVT Study Measurements Right 2D and Doppler Measurements + + + + +------+------+ + !Location !Visualized!Compressibility!Thrombosis!Signal!Reflux!Reflux ! ! ! ! ! ! ! !(sec) ! + + + + +------+------+ + !GSV Thigh !Yes !Yes !None !Phasic!No ! ! + + + + +------+------+ + !Common !Yes !Yes !None !Phasic!No ! ! !Femoral ! ! ! ! ! ! ! + + + + +------+------+ + !Prox !Yes !Yes !None !Phasic!No ! ! !Femoral ! ! ! ! ! ! ! + + + + +------+------+ + !Mid Femoral!Yes !Yes !None !Phasic!No ! ! + + + + +------+------+ + !Dist !Yes !Yes !None !Phasic!No ! ! !Femoral ! ! ! ! ! ! ! + + + + +------+------+ + !Popliteal !Yes !Yes !None !Phasic!No ! ! + + + + +------+------+ + !Gastroc !Yes !Yes !None !Phasic!No ! ! + + + + +------+------+ + !PTV !Yes !Yes !None !Phasic!No ! ! + + + + +------+------+ + !Peroneal !Yes !Yes !None !Phasic!No ! ! + + + + +------+------+ + Left Lower Extremities DVT Study Measurements Left 2D and Doppler Measurements + + + + +------+------+ + !Location !Visualized!Compressibility!Thrombosis!Signal!Reflux!Reflux ! ! ! ! ! ! ! !(sec) ! + + + + +------+------+ + !GSV Thigh !Yes !Yes !None !Phasic!No ! ! + + + + +------+------+ + !Common !Yes !Yes !None !Phasic!No ! ! !Femoral ! ! ! ! ! ! ! + + + + +------+------+ + !Prox !Yes !Yes !None !Phasic!No ! ! !Femoral ! ! ! ! ! ! ! + + + + +------+------+ + !Mid Femoral!Yes !Yes !None !Phasic!No ! ! + + + + +------+------+ + !Dist !Yes !Yes !None !Phasic!No ! ! !Femoral ! ! ! ! ! ! ! + + + + +------+------+ + !Popliteal !Yes !Yes !None !Phasic!No ! ! + + + + +------+------+ + !Gastroc !Yes !Yes !None !Phasic!No ! ! + + + + +------+------+ + !PTV !Yes !Yes !None !Phasic!No ! ! + + + + +------+------+ + !Peroneal !Yes !Yes !None !Phasic!No ! ! + + + + +------+------+ + Signature dtt: JUANITO LOPEZ dtolivia: 06/20/16 1642 Physician Self Edit
--- NOTE | ~2016-06-02 | CON ---
PATIENT'S NAME: [facility] AGE: 80 Y [address] ROOM: [address] [address] LOCATION: [facility] [place] ADMIT DATE: 06/02/2016 Consultation DISCHARGE DATE: FAMILY PHYSICIAN: CAROLYN NOGUERA MD ATTENDING PHYSICIAN: Beau Torres DATE OF CONSULTATION: 07/03/2016 REQUESTING PHYSICIAN: MD Sandy. REASON FOR CONSULTATION: Accelerated hypertension. HISTORY OF PRESENT ILLNESS: The patient is a 80-year-old white female with a history of diabetes for the last 20 years. She does have diabetic retinopathy but no neuropathy. The patient had a baseline creatinine of around 0.9. Creatinine went up to 1.4 today. She reports that in the past she has had some issues with elevated creatinine and actually she was seen me in my office long ago. I do not have access to the records at this time. Her outpatient medication does include lisinopril. She normally does not take any nonsteroidals or DHILLON-2 inhibitors. The patient admitted to the hospital with an infection of the right ankle. She is also having pain in the back and the legs from radiculopathy. The patient does have a component of anxiety. She has been hypertensive for at least 10 years. Her outpatient medication did include two antihypertensive medicines. Yesterday, her blood pressure showed up systolic of 190 and she is currently on five antihypertensive medicines which includes a diuretic. Dr. Delgado was concerned and asked me to see this lady because she could be having secondary cause of hypertension. The patient did have renal ultrasound. The kidneys look symmetrical. Resistance index was not reported. Urinalysis did show 1+ proteinuria. REVIEW OF SYSTEMS: GENERAL: She denies any fever, chills, or rigors. HEENT: Denies any sore throat or sinus congestion. CARDIOVASCULAR: Denies any chest pain, dyspnea on exertion. RESPIRATORY: Denies any shortness of breath, cough, or wheezing. GI: Denies any abdominal pain, nausea, or vomiting. : Denies any dysuria or frequency. MUSCULOSKELETAL: She has pain in the right knee and not as much in the right ankle. IMMUNOLOGIC: Denies any allergies or hay fever. LYMPHATIC: Denies any lymph node enlargement. HEMATOLOGIC: Denies any easy bruising. PATIENT'S NAME: ANG [facility] AGE: 80 Y [address] ROOM: [place] [address] LOCATION: [facility] [place] ADMIT DATE: 06/02/2016 Consultation DISCHARGE DATE: FAMILY PHYSICIAN: CAROLYN NOGUERA MD ATTENDING PHYSICIAN: eBau Torres ENDOCRINE: Denies any heat or cold intolerance. Denies any weakness or fatigue. She also did not have any symptoms with her elevated blood pressure like palpitation, dizziness, or intense headache. ALLERGIES: NO KNOWN DRUG ALLERGIES. MEDICATIONS: Current medications include, 1. Maxipime 1 g vial every day. 2. Vancomycin 600 mg. 3. Xalatan eye drops. 4. Apresoline 100 mg q.8 hours. 5. Aspirin 81 mg a day. 6. Chlorthalidone 50 mg every day. 7. Colace 100 mg every day. 8. Coreg 25 mg twice a day. 9. Feosol 325 mg a day. 10. Florastor 250 mg twice a day. 11. Levothyroxine 88 mcg a day. 12. Lexapro 10 mg a day. 13. Lipitor 20 mg a day. 14. Melatonin 3 mg 2 tablets a day. 15. Norvasc 10 mg a day. 16. Os-Mahendra with vitamin D 500 mg every day. 17. Prinivil 20 mg a day. 18. Seroquel 50 mg q.h.s. 19. Theragran one tablet every day. 20. Tricor 160 mg a day. 21. Vitamin B12 500 mcg every day. 22. Xanax 0.25 mg every day. 23. Levemir 7 units q.a.m. 24. Lovenox 30 mg subcu q.h.s. 25. NovoLog by mild sliding scale. 26. Nitroglycerin 0.2 mg sublingual p.r.n. PAST MEDICAL HISTORY: Diabetes mellitus, diabetic neuropathy, hypertension, hyperlipidemia, hypothyroidism, throat cancer, anxiety and depression, right ankle infection, degenerative joint disease of the right knee, radiculopathy. PAST SURGICAL HISTORY: Debridement of right ankle with irrigation and placement of a wound VAC. SOCIAL HISTORY: PATIENT'S NAME: PORTIA FRY [facility] AGE: 80 Y [address] ROOM: [place] [address] LOCATION: [facility] [place] ADMIT DATE: 06/02/2016 Consultation DISCHARGE DATE: FAMILY PHYSICIAN: CAROLYN NOGUERA MD ATTENDING PHYSICIAN: Beau Torres She has no history of tobacco or alcohol. FAMILY HISTORY: No family history of kidney disease or dialysis. PHYSICAL EXAMINATION: GENERAL: A 80-year-old white female lying in the hospital bed, not in acute distress. VITAL SIGNS: Temperature 98.2, pulse 60, systolic blood pressure 147, diastolic 67, respiratory rate 18. HEAD: Normocephalic. EENT: Pupils are round and equal. Normal eyelid and pale conjunctivae. She has mild drooping of the right lower lip, and oral cavity is clear. She has dentures. NECK: Trachea is central. No thyromegaly. She has a radiation elvira on the left of neck. HEART: Heart sounds are audible in all the areas without any gallop or murmur. Pulses irregularly irregular. LUNGS: Bilaterally clear to auscultation. No intercostal retraction. ABDOMEN: Obese, soft, nontender. Could not palpate the liver or spleen. EXTREMITIES: She has no clubbing or cyanosis. She has swelling of the right ankle and has dressing over that. NEUROLOGICAL: She is alert and oriented x3, and grossly nonfocal. She has reasonable good memory and speech. LYMPHATICS: Did not examine lymphatics. MUSCULOSKELETAL: No clubbing or cyanosis. SKIN: No sign of vasculitis. LABORATORY DATA: Blood work from today shows sodium 139, potassium 4.5, chloride 107, bicarbonate 25, BUN of 25, creatinine of 1.4. ASSESSMENT: 1. Elevated creatinine. The patient had acute kidney injury, and creatinine went up from baseline of 0.9 to 1.0 to 1.4 now, most likely because of accelerated hypertension. She is also on vancomycin and vanco trough level at one time was 20. 2. Accelerated hypertension. As mentioned above. Her systolic blood pressure went up to 190s, on five antihypertensive medications that includes a diuretic. 3. Diabetes mellitus. 4. Diabetic retinopathy. 5. Hypertension. 6. History of hyperlipidemia. 7. Hypothyroidism. PATIENT'S NAME: PORTIA FRY [facility] AGE: 80 Y [address] ROOM: [address] [address] LOCATION: [facility] [place] ADMIT DATE: 06/02/2016 Consultation DISCHARGE DATE: FAMILY PHYSICIAN: CAROLYN NOGUERA MD ATTENDING PHYSICIAN: Beau Torers 8. Throat cancer. PLAN: I agree with the workup for secondary causes of hypertension, plasma free metanephrine level has been drawn. Her TSH was drawn and it was near normal. We will order other studies that include renin, aldosterone, and 24-hour urine study for catecholamines. Kidneys looked symmetrical, so I doubt that the patient could have significant renal artery stenosis of bilateral of course. We should consider discontinuing vancomycin and alternative regimen for treating her ankle infection. Once all the blood chemistries have been drawn for her secondary hypertension workup, we could possibly consider spironolactone to be added, if her blood pressure goes up in the future. I would like to thank Dr. Delgdao for allowing me to participate in this patient's care. M MD JOSHUA PUENTE/marques /[id number] CC: Carolyn Noguera MD d: 07/03/16 1421 t: 07/05/16 0852, CONSULTATION REPORT
--- NOTE | ~2016-06-02 | DS ---
PATIENT'S NAME: PORTIA FRY [facility] AGE: 80 Y [address] ROOM: [address] [address] LOCATION: [facility] [place] ADMIT DATE: 06/02/2016 Discharge Summary DISCHARGE DATE: 07/27/2016 FAMILY PHYSICIAN: Compa Pillai MD ATTENDING PHYSICIAN: Jacob Clemons ADMITTING DIAGNOSIS: Chronic diabetic with diabetic retinopathy and status post open reduction and internal fixation of an ankle fracture with subsequent skin necrosis and infection with the plate exposed. OTHER COMORBIDITIES: Include accelerated hypertension, acute kidney injury, hyperlipidemia, and hypothyroidism. HOSPITAL COURSE: The patient was admitted initially for debridement and irrigation of the right ankle. Vascular Surgery was consulted regarding the vascular status of her right lower extremity. Hospitalist consult for diabetic management was also ordered. Wound VAC was placed on the open wound after cultures and debridement was done in the operating room on 06/02/2016. [facility] nurses were consulted for assistance with the wound VAC and placement of the wound VAC. Postop hemoglobin was 10.2. Strict monitoring of her diabetes was done and adjustments were made to her insulin regimen accordingly. She was placed on a mild insulin protocol. Bilateral ABIs were ordered. The patient was placed on Kefzol IV prophylactically while culture results were pending. Postop day 4, hemoglobin 7.9. Wound VAC in place. The wound was growing Pseudomonas and Staph epidermidis. ID consult was requested. Vancomycin was ordered 750 IV q.24 hours, vancomycin trough before the 4th dose, and adjust per protocol. She did have Lovenox used for DVT prophylaxis. This was monitored by the hospitalist. She did have a catheter placed for long-term administration of IV antibiotics. Vancomycin was adjusted according to trough levels. She had been on telemetry and that was discontinued on 06/10/2016, postop day 8, and a request was made for the patient to be transferred to transitional care or fpc. On postop day 8, no beds were available and the patient could not be placed, so she was continued in the hospital. She had long-standing low back pain. An MRI indicated degenerative changes and disk protrusion L4 and spinal stenosis L4-5, and a lumbar epidural injection was ordered to address her chronic low back pain. She had some chronic anxiety issues and it was felt appropriate by hospitalist to initiate Lexapro 10 mg p.o. daily. Throughout her hospitalization, adjustments were made according to her creatinine clearance and vancomycin trough levels. Her hypertension continued to be problematic and chlorthalidone 25 p.o. daily was started. Hemoglobin on postop day 14 was 8.1. Anesthesia felt it was prudent to do an epidural steroid injection in the phase of her infection, and so Interventional Radiology did a lumbar epidural steroid injection. Continued placement in a fpc where a skilled bed was sought for the patient, but was not available. She had a PATIENT'S NAME: PORTIA FRY [facility] AGE: 80 Y [address] ROOM: [place] [address] LOCATION: [facility] [place] ADMIT DATE: 06/02/2016 Discharge Summary DISCHARGE DATE: 07/27/2016 FAMILY PHYSICIAN: Compa Pillai MD ATTENDING PHYSICIAN: Jaocb Clemons hemoglobin of [address] Clemons wrote for a type and cross and transfused 2 units of packed red blood cells. Levaquin was discontinued, ceftriaxone 1 g was ordered, and the vancomycin was adjusted to 1 g q.24 hours. Wound VAC was continued and changed thrice a weak for her ankle and cefepime was ordered 1 g IV q.24 hours, which was a change in dosage due to her renal insufficiency, and her Lovenox was adjusted downward from 40 daily to 30 daily. The patient continued to be ineligible for transfer to fpc with the IV vancomycin and her wound VAC. They felt that postop 3 weeks that her epidural, had begun to improve her right lower back pain and buttock pain. She continued to be afebrile. Her blood pressure was under improved control. Plans were made for her to continue on cefepime and vancomycin through July 14, which would be her end date. They continued to await placement to a nursing facility. Venous Doppler was ordered on postop week 3 for bilateral lower extremity with concerns of leg pain. She continued to have some mild accelerated hypertension and further adjustments were made to her blood pressure regimen including stopping the Prinivil and Tenormin and switching to Coreg. Vancomycin adjustments continued to be made given her varying kidney function and serum creatinine and trough levels. Postop week 3-03/15, her hemoglobin was 7.8. On postop day 30 with the wound VAC on, her wound was examined and felt to have about 2/3rd was covered with granulation tissue with the distal end of the plate continued to be uncovered. Nephrology consult was ordered for further evaluation of her accelerated hypertension. They felt given her very low kidney function that changing from vancomycin to daptomycin would be advisable and consultation with Infectious Disease was also ordered again. On postop day 34, on 07/05, the patient had a rough night the night before, complained of chest pain and nausea. She had a 2-view chest and EKG performed. Hemoglobin was 7.7. Sedimentation rate was 57. CRP 0.29. So for discharge, the patient was discharged to [facility] with the following diagnoses: 1. Septic right ankle, on chronic suppressive antibiotic. 2. Essential hypertension. 3. Accelerated hypertension. 4. Bradycardia. 5. Acute kidney injury, superimposed on chronic kidney disease stage 3-4. 6. Protein calorie malnutrition. 7. Labile diabetes. 8. Low back pain with spinal stenosis. DISCHARGE INSTRUCTIONS: Weight bear as tolerated, right leg. OT/PT to continue with conditioning and exercise tolerance. Titrate O2 as needed to keep saturations above 90. Accu-Cheks a.c. and h.s. CBC, CMP, CRP, ESR on every Tuesday, fax results to [facility]. Wet-to-dry dressing changes over the wound on her right ankle daily. MEDICATIONS AT THE TIME OF DISCHARGE: PATIENT'S NAME: PORTIA FYR [facility] AGE: 80 Y [address] ROOM: [place] [address] LOCATION: [facility] ADMIT DATE: 06/02/2016 Discharge Summary DISCHARGE DATE: 07/27/2016 FAMILY PHYSICIAN: Compa Pillai MD ATTENDING PHYSICIAN: Jacob Clemons 1. Amlodipine 10 mg p.o. daily. 2. Atorvastatin 20 mg p.o. daily. 3. Benazepril 10 mg p.o. daily. 4. Calcitriol 0.25 mcg daily. 5. Calcium carbonate 500 mg p.o. b.i.d. 6. Carvedilol 25 mg p.o. b.i.d. 7. Clonidine hydrochloride 0.1 mg p.o. t.i.d. 8. B12 500 mcg p.o. daily. 9. Colace as needed. 10. Doxycycline 100 mg p.o. b.i.d., taken with meals. Avoid dairies and antacids. Stop date of 08/11/2016. 11. Lovenox 30 mg subcutaneous q.h.s. 12. Lexapro 10 mg p.o. q.p.m. 13. Pepcid 20 mg p.o. daily. 14. Fenofibrate 160 mg p.o. daily. 15. Aspirin 81 mg p.o. q.h.s. 16. Hydralazine 100 mg p.o. q.8 hours. 17. Insulin NovoLog 100 units by sliding scale. 18. Levofloxacin 500 mg p.o. q.48 hours, stop date, 08/11/2016. 19. Levothyroxine 88 mcg daily. 20. Melatonin 3 mg 2 tabs p.o. q.h.s. 21. Multivitamin. 22. Nitroglycerin as needed. 23. Zofran 4 mg p.o. t.i.d. 30 minutes prior to meals. 24. Seroquel 25 mg p.o. q.h.s. 25. Florastor 250 mg p.o. b.i.d. 26. Epoetin 5000 units. 27. Xalatan eyedrops. 28. Tylenol as needed for pain. 29. Elmira 5/325 1 p.o. q.6 hours as needed for pain. 30. Xanax 0.25 mg as needed for anxiety. 31. MiraLAX 17 g p.o. daily as needed for constipation. MARY LEMA FOR MD MARTY WEAVER/marques /[id number] d: 08/05/16 0241 t: 08/11/16 0944, DISCHARGE SUMMARY
--- NOTE | ~2016-06-02 | CON ---
PATIENT'S NAME: PORTIA FRY [facility] AGE: 80 Y [address] ROOM: [address] [place] [id number] [place] [facility] [place] DATE: 06/02/2016 Consultation DISCHARGE DATE: FAMILY PHYSICIAN: CAROLYN NOGUERA MD ATTENDING PHYSICIAN: Beau Torres CHIEF COMPLAINT: Right knee pain. HISTORY OF PRESENT ILLNESS: This 80-year-old female is status post ORIF left ankle. About a month ago, she had some wound infection and has had a couple of debridements. The last 2 days, she has had more pain in her right knee and it kept her up last night. She has had pain off and on before for several years. There was no injury or fall. No fevers, chills, or evidence of infection. She has a VAC on the ankle and is on IV antibiotics. Denies injuries to the knee. She is a diabetic and has a peripheral neuropathy. No chest pain or shortness of breath. No nausea or vomiting. PAST MEDICAL HISTORY: Hypertension, hypercholesterolemia, glaucoma, DVT, coronary artery disease, osteoarthritis, chronic kidney disease, stage 3, type 2 diabetes, and hypothyroidism. PAST SURGICAL HISTORY: Bilateral carpal tunnel releases, cholecystectomy, bilateral cataract removal, ORIF, right ankle, irrigation and debridement, right ankle x2. FAMILY HISTORY: Hypertension in mother with stroke and father with stroke. SOCIAL HISTORY: Lives in assisted living. No alcohol or tobacco use. MEDICATIONS: 1. Aspirin. 2. Levemir insulin. 3. Levothyroxine. 4. Lotensin. 5. Lipitor. 6. Norvasc. 7. NovoLog. 8. Os-Mahendra. 9. TriCor. 10. Vancomycin. 11. Xalatan. [facility] 80 Y [address] ROOM: [facility] [place], [place] [address] [place]: [facility] [place] DATE: 06/02/2016 Consultation DISCHARGE DATE: FAMILY PHYSICIAN: CAROLYN NOGUERA MD ATTENDING PHYSICIAN: Beau Torres 12. Apresoline. 13. Trandate. 14. Eyedrops. REVIEW OF SYSTEMS: No recent coughs, colds, fevers, chills, or sore throats. No chest pain, shortness of breath, or trouble breathing. She has had occasional nausea and constipation. No dysuria or hematuria. No mental status changes. No weight changes. No malaise. No skin changes. No auditory or visual hallucinations. PHYSICAL EXAMINATION: GENERAL: She is awake, alert, and oriented x3. Mood and affect appropriate. VITAL SIGNS: Temp is 98, blood pressure 167/74, respirations 18, and pulse 73 and regular. HEENT: Atraumatic, normocephalic. PERRL. EOMI. TMs clear. Throat clear. NECK: Supple. CHEST: Clear to auscultation. HEART: Regular rhythm. ABDOMEN: Soft, nontender, without masses. SPINE: Nontender. EXTREMITIES: Upper extremities normal. Left lower extremity normal. Right lower extremity, there is a splint on her right ankle with VAC. Her right knee has no warmth, redness, or effusion. There is medial tenderness, slight boggy synovitis. Drawer and Marcella's negative. No collateral laxity. Range is 0-140 degrees. Sensation slightly diminished in the ankles and feet otherwise normal. Motor function intact. No muscle atrophy. DIAGNOSTIC DATA: X-rays of the right knee standing AP and lateral show mild loss of joint space, small osteophytes, and some sclerosis. Diagnosis [id number] degenerative arthritis, right knee. IMPRESSION: Degenerative arthritis, right knee, symptomatic bothering her activity. PLANS: Discussed treatment options. She wishes an injection. Risks and benefits discussed. Time-out was performed. Right knee was injected through an anterolateral approach, 80 mg Depo-Medrol, 5 mL of lidocaine, she is given exercises, and Tylenol for pain; otherwise, activity as tolerated. FANG ESTRELLA MD PATIENT'S NAME: PORTIA FRY [facility] AGE: 80 Y [address] ROOM: [address] [place] [id number] [place]: [facility] DATE: 06/02/2016 Consultation DISCHARGE DATE: FAMILY PHYSICIAN: CAROLYN NOGUERA MD ATTENDING PHYSICIAN: Beau Torres/marques /[id number] d: 06/07/16 2346 t: 06/16/16 1114, CONSULTATION REPORT
--- NOTE | ~2016-06-02 | HP ---
PATIENT'S NAME: PORTIA FRY [facility] AGE: 80 Y [address] ROOM: [place] [address] LOCATION: [facility] [place] ADMIT DATE: 06/02/2016 History & Physical DISCHARGE DATE: FAMILY PHYSICIAN: CAROLYN NOGUERA MD ATTENDING PHYSICIAN: Beau Torres DATE OF SERVICE: CHIEF COMPLAINT: Back and leg pain, worse on the right. HISTORY: A 80-year-old female, who is currently hospitalized at [facility], recovering from right ankle surgery and infection. She is on IV vancomycin and Levaquin. The infection is very low-grade and not of any systemic consequence. She has not been septic at all. She has been in bed quite a bit and has been limping, attending therapy. She complains of severe pain in her lower back and legs, especially the right leg, radiates from the buttock into the thigh, a little bit into the calf. She denies numbness or tingling. She is constipated, but has no acute bowel or bladder dysfunction. PAST MEDICAL HISTORY: She is on aspirin, but no other anticoagulants. Her blood pressure is high and she has been somewhat labile recently. She has mildly elevated GFR. She takes no alcohol or tobacco products. ALLERGIES: SHE HAS NO ALLERGIES. SOCIAL HISTORY: She does not smoke or drink alcoholic beverages. PHYSICAL EXAMINATION: She is mildly tender in lumbar spine. Straight leg raising causes some pain in her right buttock and thigh, little bit in the calf on the right. Dorsiflexion of the ankle exacerbates the pain. Her right knee has no warmth, redness, or effusion. Hip has good range of motion without pain. She is minimally tender over the greater trochanter. MRI of the lumbar spine from 05/29/2015 shows multiple levels of degenerative changes, large herniated disk to the right at L4-L5 as well as spinal stenosis at L4-L5 and L3-L4. She has lateral recess stenosis, facet arthropathy at multiple levels on the lumbar spine. IMPRESSION: 1. Low back and radicular type pain in her lower extremities, worse on the PATIENT'S NAME: PORTIA FRY [facility] AGE: 80 Y [address] ROOM: [place] [address] LOCATION: [facility] [place] ADMIT DATE: 06/02/2016 History & Physical DISCHARGE DATE: FAMILY PHYSICIAN: CAROLYN NOGUERA MD ATTENDING PHYSICIAN: Beau Torres. 2. Low-grade right ankle infection, well-controlled, no systemic symptoms. 3. Hypertension. 4. Type 2 diabetes. 5. Dyslipidemia. 6. Coronary artery disease. 7. Hypothyroidism. PLAN: I think considering the limitation of activities that this pain is producing, it is preventing her from recovering, that an epidural steroid injection would be indicated. While there is slight risk of infection, I think it is very minimal because of the localized area of infection in the ankle. She has been on antibiotics now for a week, so I do not think there is any systemic evidence of sepsis. I discussed the procedure, risks, and benefits, emphasizing anesthetic, neurovascular, and infectious complications. She understands and desires to proceed as planned. MD PACO WEAVER/marques /[id number] D: 252 T: HISTORY & PHYSICAL
--- NOTE | ~2016-06-02 | OR ---
PATIENT'S NAME: PORTIA SAVAGE [facility] AGE: 80 Y [address] ROOM: [place] [address] LOCATION: [facility] [place] ADMIT DATE: 06/02/2016 OR/Procedure Report DISCHARGE DATE: FAMILY PHYSICIAN: CAROLYN NOGUERA MD ATTENDING PHYSICIAN: Beau Torres SURGEON: Bret Bustillos DO ELASTIC ATTACHER COVERSTITCH: DATE OF PROCEDURE: 07/15/2016 PREOPERATIVE DIAGNOSIS: Renal failure, need of hemodialysis. POSTOPERATIVE DIAGNOSIS: Renal failure, need of hemodialysis. PROCEDURE PERFORMED: Placement of temporary hemodialysis catheter via the right internal jugular vein. REFERRING: Enrique Kraft MD BRIEF HISTORY: Ms Savage 80-year-old white female with the above-noted diagnosis. She has been sterilely prepped and draped over the right anterior neck after identifying the right internal jugular vein with the ultrasound. This elvira was infiltrated with 1% lidocaine and the vein accessed without difficulty. The guidewire fed without resistance. Soft tissue dilator x2 placed over the guidewire and removed and then the triple-lumen catheter placed over the guidewire and the guidewire was removed. Each lumen aspirated easily for dark venous blood. All three lumens were flushed with normal saline and 2 dialysis lumens were locked with heparin. The patient tolerated the procedure well and was secured in position with a 2-0 nylon and sterile dressings applied. BRET BUSTILLOS DO MCB/modl /[id number] d: 07/18/16 1039 t: 07/19/16 0920, OPERATIVE SUMMARY
--- NOTE | ~2016-06-02 | CON ---
PATIENT'S NAME: PORTIA FRY [facility] AGE: 80 Y [address] ROOM: [place] [address] LOCATION: [facility] ADMIT DATE: 06/02/2016 Consultation DISCHARGE DATE: FAMILY PHYSICIAN: CAROLYN NOGUERA MD ATTENDING PHYSICIAN: Beau Torres DATE OF CONSULTATION: 06/03/2016 REASON FOR CONSULT: Decline in right lower extremity surgical site. HISTORY OF PRESENTING ILLNESS: This is a 80-year-old female admitted to [facility] after presenting to Dr. Torres's office with exposed lateral ankle hardware and necrotic tissue over her right ankle. She is postop day 1 of irrigation and debridement of right ankle with wound VAC in place. The patient sustained a bimalleolar fracture of her right ankle after falling and underwent ORIF on 04/30/2016. We are consulted to evaluate vascular health of her right lower extremity. The patient denies any personal history of vascular disease. She denies any claudication or edema. She does report a history of DVT. The patient has no tobacco use history, but is a known type 2 diabetic for many years. She currently reports pain 5/10 in her right ankle. She denies any chest pain, shortness of breath, lightheadedness, or dizziness. She denies any nausea, vomiting, diarrhea, or abdominal pain. She denies any fevers or chills. PAST MEDICAL HISTORY: 1. Essential hypertension. 2. Hypercholesterolemia. 3. Glaucoma. 4. DVT. 5. Coronary artery disease. 6. Osteoarthritis. 7. Chronic kidney disease, stage 3. 8. Type 2 diabetes mellitus. 9. Hypothyroidism. PAST SURGICAL HISTORY: 1. Bilateral carpal tunnel surgeries. 2. Cholecystectomy. 3. Bilateral cataract removals. 4. ORIF of right ankle. 5. Irrigation and debridement of right ankle. FAMILY HISTORY: PATIENT'S NAME: PORTIA FRY [facility] AGE: 80 Y [address] ROOM: [place] [address] LOCATION: [facility] ADMIT DATE: 06/02/2016 Consultation DISCHARGE DATE: FAMILY PHYSICIAN: CAROLYN NOGUERA MD ATTENDING PHYSICIAN: Beau Torres The patient's mother with hypertension and stroke. Father with stroke. SOCIAL HISTORY: The patient currently lives at an assisted living. She denies any alcohol, tobacco, or illicit drug use. CURRENT MEDICATIONS: See medication records. ALLERGIES: NO KNOWN DRUG ALLERGIES. REVIEW OF SYSTEMS: A 10-point review of systems was completed, positives addressed in the History of Presenting Illness. PHYSICAL EXAMINATION: VITAL SIGNS: Temperature is 98.6, heart rate 55, respiratory rate 16, blood pressure 192/82, and oxygen saturation is 95%. GENERAL: The patient is a good historian, in no acute distress. She is alert and oriented x3. SKIN: Warm and pink. No rashes. There is a wound VAC to her right anterior ankle medial to laterally. She has mild surrounding erythema. HEENT: Head is normocephalic and atraumatic. Ears without drainage. Eyes: Sclerae are white and conjunctivae pink. Extraocular movements intact. PERRLA. Nose without drainage. Throat: Oral mucosa pink and moist. NECK: Without adenopathy. No evidence of JVD. No carotid bruit. Trachea midline. RESPIRATORY: Clear to auscultation bilaterally. Even and unlabored. CARDIOVASCULAR: Regular rate and rhythm. No murmur or extra sounds. GASTROINTESTINAL: Bowel sounds active x4. Soft and nontender. No organomegaly. EXTREMITIES: Bilateral radial, femoral, and popliteal pulses are 2+. Left lower extremity dorsalis pedis and posterior tibialis 2+. Right lower extremity dorsalis pedis and posterior tibialis 1+. No cyanosis. Mild nonpitting edema to her right lower extremity. Extremities are warm to touch. She does have varicose veins present. NEUROLOGICAL: No focal deficits. LABORATORY DATA: Hematology: White blood cell count 6.8, hemoglobin 10.2, hematocrit 31.8, and platelets 572. IMPRESSION AND PLAN: Infected right ankle at open reduction and internal fixation site with exposed PATIENT'S NAME: PORTIA FRY [facility] AGE: 80 Y [address] ROOM: [place] [address] LOCATION: [facility] ADMIT DATE: 06/02/2016 Consultation DISCHARGE DATE: FAMILY PHYSICIAN: CAROLYN NOGUERA MD ATTENDING PHYSICIAN: Beau Torres hardware, status post irrigation and debridement of right ankle. We are consulted for evaluation of blood flow due to concern of poor wound healing. The patient has no smoking history, but is a known diabetic. After physical examination, poor wound healing is most likely related to diabetes mellitus. The patient has palpable pulses throughout her lower extremities; however, due to concern of surgical site decline, we will go ahead and obtain ankle- brachial index and arterial duplex today. If the patient is found to have significant peripheral vascular disease, note that creatinine was 1.4 and GFR 36 on May 17, 2016. Further vascular intervention would involve angiogram which requires contrast exposure. Therefore, we will wait for results of noninvasive studies to guide plan of care. We recommend continuing aspirin and Lipitor. Thank you for your consultation and for allowing us to participate in the care of this patient. KIRSTY CHUNG APRN FOR JUANITO LOPEZ MD TO/modl /[id number] d: 06/03/16 1451 t: 06/04/16 1014, CONSULTATION REPORT
--- NOTE | ~2016-06-02 | CON ---
PATIENT'S NAME: PORTIA FRY [facility] AGE: 80 Y [address] ROOM: [place] [address] LOCATION: [facility] ADMIT DATE: 06/02/2016 Consultation DISCHARGE DATE: FAMILY PHYSICIAN: CAROLYN NOGUERA MD ATTENDING PHYSICIAN: Beau Torres DATE OF CONSULTATION: 06/03/2016 REASON FOR CONSULT: Decline in right lower extremity surgical site. HISTORY OF PRESENTING ILLNESS: This is a 80-year-old female admitted to [facility] after presenting to Dr. Torres's office with exposed lateral ankle hardware and necrotic tissue over her right ankle. She is postop day 1 of irrigation and debridement of right ankle with wound VAC in place. The patient sustained a bimalleolar fracture of her right ankle after falling and underwent ORIF on 04/30/2016. We are consulted to evaluate vascular health of her right lower extremity. The patient denies any personal history of vascular disease. She denies any claudication or edema. She does report a history of DVT. The patient has no tobacco use history, but is a known type 2 diabetic for many years. She currently reports pain 5/10 in her right ankle. She denies any chest pain, shortness of breath, lightheadedness, or dizziness. She denies any nausea, vomiting, diarrhea, or abdominal pain. She denies any fevers or chills. PAST MEDICAL HISTORY: 1. Essential hypertension. 2. Hypercholesterolemia. 3. Glaucoma. 4. DVT. 5. Coronary artery disease. 6. Osteoarthritis. 7. Chronic kidney disease, stage 3. 8. Type 2 diabetes mellitus. 9. Hypothyroidism. PAST SURGICAL HISTORY: 1. Bilateral carpal tunnel surgeries. 2. Cholecystectomy. 3. Bilateral cataract removals. 4. ORIF of right ankle. 5. Irrigation and debridement of right ankle. FAMILY HISTORY: PATIENT'S NAME: PORTIA FRY [facility] AGE: 80 Y [address] ROOM: [place] [address] LOCATION: [facility] ADMIT DATE: 06/02/2016 Consultation DISCHARGE DATE: FAMILY PHYSICIAN: CAROLYN NOGUERA MD ATTENDING PHYSICIAN: Beau Torres The patient's mother with hypertension and stroke. Father with stroke. SOCIAL HISTORY: The patient currently lives at an assisted living. She denies any alcohol, tobacco, or illicit drug use. CURRENT MEDICATIONS: See medication records. ALLERGIES: NO KNOWN DRUG ALLERGIES. REVIEW OF SYSTEMS: A 10-point review of systems was completed, positives addressed in the History of Presenting Illness. PHYSICAL EXAMINATION: VITAL SIGNS: Temperature is 98.6, heart rate 55, respiratory rate 16, blood pressure 192/82, and oxygen saturation is 95%. GENERAL: The patient is a good historian, in no acute distress. She is alert and oriented x3. SKIN: Warm and pink. No rashes. There is a wound VAC to her right anterior ankle medial to laterally. She has mild surrounding erythema. HEENT: Head is normocephalic and atraumatic. Ears without drainage. Eyes: Sclerae are white and conjunctivae pink. Extraocular movements intact. PERRLA. Nose without drainage. Throat: Oral mucosa pink and moist. NECK: Without adenopathy. No evidence of JVD. No carotid bruit. Trachea midline. RESPIRATORY: Clear to auscultation bilaterally. Even and unlabored. CARDIOVASCULAR: Regular rate and rhythm. No murmur or extra sounds. GASTROINTESTINAL: Bowel sounds active x4. Soft and nontender. No organomegaly. EXTREMITIES: Bilateral radial, femoral, and popliteal pulses are 2+. Left lower extremity dorsalis pedis and posterior tibialis 2+. Right lower extremity dorsalis pedis and posterior tibialis 1+. No cyanosis. Mild nonpitting edema to her right lower extremity. Extremities are warm to touch. She does have varicose veins present. NEUROLOGICAL: No focal deficits. LABORATORY DATA: Hematology: White blood cell count 6.8, hemoglobin 10.2, hematocrit 31.8, and platelets 572. IMPRESSION AND PLAN: Infected right ankle at open reduction and internal fixation site with exposed PATIENT'S NAME: PORTIA FRY [facility] AGE: 80 Y [address] ROOM: [place] [address] LOCATION: [facility] ADMIT DATE: 06/02/2016 Consultation DISCHARGE DATE: FAMILY PHYSICIAN: CAROLYN NOGUERA MD ATTENDING PHYSICIAN: Beau Torres hardware, status post irrigation and debridement of right ankle. We are consulted for evaluation of blood flow due to concern of poor wound healing. The patient has no smoking history, but is a known diabetic. After physical examination, poor wound healing is most likely related to diabetes mellitus. The patient has palpable pulses throughout her lower extremities; however, due to concern of surgical site decline, we will go ahead and obtain ankle- brachial index and arterial duplex today. If the patient is found to have significant peripheral vascular disease, note that creatinine was 1.4 and GFR 36 on May 17, 2016. Further vascular intervention would involve angiogram which requires contrast exposure. Therefore, we will wait for results of noninvasive studies to guide plan of care. We recommend continuing aspirin and Lipitor. Thank you for your consultation and for allowing us to participate in the care of this patient. KRISTY CHUNG APRN FOR JUANITO LOPEZ MD TO/modl /[id number] d: 06/03/16 1451 t: 07/30/16 1001, CONSULTATION REPORT
[~2016-06-02 17:35] MED LIST changes: -ALOE VESTA226 GM TOP; -CATAPRES0.1 MG PO; -COLACE100 MG PO; -COREG25 MG PO; -DOXYCYCLINE100 MG PO; -DULCOLAX10 MG R; -FLORASTOR250 MG PO; -GLUCAGON 1 MG PE1 MG SUB-Q; -GLUCOSE4 GM PO; -HYDRALAZINE HC100 MG PO; -LASIX40 MG PO; -LEVAQUIN500 MG PO; -LEXAPRO10 MG PO; -MELATONIN3 MG PO; -MILK OF MA400 MG/5 M PO; -MIRALAX PO527 GM/BOT PO; -ONDANSETRON ODT4 MG PO; -OXYGEN M-15 INH; -PEPCID20 MG PO; -ROCALTROL0.25 MCG PO; -SENSI-CARE PRO113 GM TOP; -SEROQUEL25 MG PO; -ULTRAM50 MG PO; -VITAMIN B-121000 MCG PO; -XANAX0.25 MG PO
[2016-06-02 18:38] LABS: BASOPHIL # 0.1 K/uL (0.0-0.2); BASOPHIL % 0.7 %; EOSINOPHIL # 0.2 K/uL (0.0-0.5); EOSINOPHIL % 2.8 %; HEMATOCRIT 31.8 % (33.0-46.0); HEMOGLOBIN 10.2 g/dL (10.0-15.0); IMMATURE GRANULOCYTE % 0.6 %; LYMPHOCYTE # 0.9 K/uL (0.8-4.0); LYMPHOCYTE % 12.6 %; MCH 29.6 pg (27.0-34.0); MCHC 32.1 gm/dL (32.0-36.5); MCV 92.2 fl (83.0-98.0); MONOCYTE # 0.7 K/uL (0.0-1.0); MONOCYTE % 10.5 %; MPV 9.3 fl (9.4-12.4); NEUTROPHIL # (ANC) 4.9 K/uL (1.8-7.8); NEUTROPHIL % 72.8 %; NRBC % 0 /100WBC (0-0.00); RBC 3.45 M/uL (3.50-5.50); RDW-CV 12.8 % (11.9-14.6); WBC 6.8 K/uL (4.0-11.0)
[2016-06-02 18:39] LABS: PLATELET COUNT 572 K/uL (150-450)
[2016-06-04 05:32] LABS: BASOPHIL % 0.7 %; EOSINOPHIL # 0.3 K/uL (0.0-0.5); EOSINOPHIL % 4.5 %; HEMATOCRIT 26.6 % (33.0-46.0); HEMOGLOBIN 8.5 g/dL (10.0-15.0); IMMATURE GRANULOCYTE % 0.4 %; LYMPHOCYTE # 0.9 K/uL (0.8-4.0); LYMPHOCYTE % 16.3 %; MCH 29.9 pg (27.0-34.0); MCV 93.7 fl (83.0-98.0); MONOCYTE # 0.6 K/uL (0.0-1.0); MONOCYTE % 11.3 %; MPV 9.3 fl (9.4-12.4); NEUTROPHIL # (ANC) 3.7 K/uL (1.8-7.8); NEUTROPHIL % 66.8 %; NRBC % 0 /100WBC (0-0.00); PLATELET COUNT 481 K/uL (150-450); RBC 2.84 M/uL (3.50-5.50); WBC 5.6 K/uL (4.0-11.0)
[2016-06-04 05:54] LABS: ANION GAP 11.2 (10.0-19.0); CALCIUM 8.9 mg/dL (8.5-10.5); CREATININE 1.2 mg/dL (0.5-1.1); MAGNESIUM 2.1 mg/dL (1.3-2.6); POTASSIUM 4.2 mMol/L (3.7-5.1)
[2016-06-05 05:38] LABS: HEMATOCRIT 25.3 % (33.0-46.0)
[2016-06-05 05:40] LABS: HEMOGLOBIN 7.9 g/dL (10.0-15.0)
[2016-06-05 05:52] LABS: CALCIUM 8.2 mg/dL (8.5-10.5)
[2016-06-07 05:50] LABS: HEMATOCRIT 26.5 % (33.0-46.0); HEMOGLOBIN 8.4 g/dL (10.0-15.0)
[2016-06-08 05:19] LABS: HEMATOCRIT 26.9 % (33.0-46.0); HEMOGLOBIN 8.6 g/dL (10.0-15.0); MCH 29.6 pg (27.0-34.0); MCV 92.4 fl (83.0-98.0); MPV 9.5 fl (9.4-12.4); PLATELET COUNT 503 K/uL (150-450); RBC 2.91 M/uL (3.50-5.50); RDW-CV 13.1 % (11.9-14.6); WBC 8.4 K/uL (4.0-11.0)
[2016-06-08 05:33] LABS: ALBUMIN 2.8 gm/dL (3.5-5.0); ANION GAP 11.5 (10.0-19.0); CALCIUM 9.1 mg/dL (8.5-10.5); CREATININE 0.9 mg/dL (0.5-1.1); MAGNESIUM 2.1 mg/dL (1.3-2.6); PHOSPHORUS 2.1 mg/dL (2.5-4.9); POTASSIUM 4.5 mMol/L (3.7-5.1)
[2016-06-08 06:34] LABS: ABSOLUTE NEUTROPHIL CT (ANC) 7.7 K/uL (1.8-7.8); BANDED NEUTROPHIL # 0.2 K/uL (0.0-0.1); BANDED NEUTROPHILS % 2 %; LYMPHOCYTE # 0.4 K/uL (0.8-4.0); LYMPHOCYTE % 5 %; MONOCYTE # 0.3 K/uL (0.0-1.0); SEGMENTED NEUTROPHIL # 7.6 K/uL (1.8-7.8); SEGMENTED NEUTROPHIL % 90 %
[2016-06-10 01:47] LABS: CPK 147 IU/L (21-215); MAGNESIUM 1.9 mg/dL (1.3-2.6)
[2016-06-10 02:11] LABS: ANION GAP 13.7 (10.0-19.0); CALCIUM 8.8 mg/dL (8.5-10.5); POTASSIUM 3.7 mMol/L (3.7-5.1)
[2016-06-14 06:03] LABS: ALBUMIN 2.5 gm/dL (3.5-5.0); ALK PHOS 54 IU/L (33-138); ALT 14 IU/L (12-78); ANION GAP 9.6 (10.0-19.0); AST 20 IU/L (10-40); BLOOD UREA NITROGEN 18 mg/dL (6-24); CALCIUM 8.4 mg/dL (8.5-10.5); CHLORIDE 102 mMol/L (96-110); CO2 30 mMol/L (22-32); ESTIMATED GFR (MDRD EQUATION) 53; POTASSIUM 3.6 mMol/L (3.7-5.1); SODIUM 138 mMol/L (135-145); TOTAL BILIRUBIN 0.2 mg/dL (0.0-1.5); TOTAL PROTEIN 5.9 g/dL (6.0-8.4)
[2016-06-14 06:12] LABS: HEMATOCRIT 25.1 % (33.0-46.0); HEMOGLOBIN 8.1 g/dL (10.0-15.0); MCH 29.9 pg (27.0-34.0); MCHC 32.3 gm/dL (32.0-36.5); MCV 92.6 fl (83.0-98.0); MPV 10.4 fl (9.4-12.4); RBC 2.71 M/uL (3.50-5.50); RDW-CV 13.3 % (11.9-14.6); WBC 5.8 K/uL (4.0-11.0)
[2016-06-14 06:14] LABS: PLATELET COUNT 383 K/uL (150-450)
[2016-06-14 07:23] LABS: ABSOLUTE NEUTROPHIL CT (ANC) 4.1 K/uL (1.8-7.8); LYMPHOCYTE # 0.9 K/uL (0.8-4.0); LYMPHOCYTE % 16 %; MONOCYTE # 0.6 K/uL (0.0-1.0); SEGMENTED NEUTROPHIL # 4.1 K/uL (1.8-7.8); SEGMENTED NEUTROPHIL % 71 %
[2016-06-16 07:15] LABS: CALCIUM 8.5 mg/dL (8.5-10.5); CREATININE 1.3 mg/dL (0.5-1.1)
[2016-06-17 06:10] LABS: ALBUMIN 2.6 gm/dL (3.5-5.0); ANION GAP 10.9 (10.0-19.0); CALCIUM 8.4 mg/dL (8.5-10.5); CREATININE 1.4 mg/dL (0.5-1.1); PHOSPHORUS 3.3 mg/dL (2.5-4.9); POTASSIUM 3.9 mMol/L (3.7-5.1)
[2016-06-18 04:38] LABS: ANION GAP 10.2 (10.0-19.0); CREATININE 1.4 mg/dL (0.5-1.1); POTASSIUM 4.2 mMol/L (3.7-5.1)
[2016-06-18 04:42] LABS: BASOPHIL % 0.8 %; EOSINOPHIL # 0.3 K/uL (0.0-0.5); EOSINOPHIL % 5.9 %; HEMATOCRIT 23.2 % (33.0-46.0); IMMATURE GRANULOCYTE % 0.4 %; LYMPHOCYTE # 0.7 K/uL (0.8-4.0); LYMPHOCYTE % 12.8 %; MCH 29.4 pg (27.0-34.0); MCHC 31.5 gm/dL (32.0-36.5); MCV 93.5 fl (83.0-98.0); MONOCYTE # 0.6 K/uL (0.0-1.0); MONOCYTE % 11.4 %; MPV 10.3 fl (9.4-12.4); NEUTROPHIL # (ANC) 3.6 K/uL (1.8-7.8); NEUTROPHIL % 68.7 %; NRBC % 0 /100WBC (0-0.00); PLATELET COUNT 324 K/uL (150-450); RBC 2.48 M/uL (3.50-5.50); RDW-CV 13.8 % (11.9-14.6); WBC 5.3 K/uL (4.0-11.0)
[2016-06-18 04:51] LABS: HEMOGLOBIN 7.3 g/dL (10.0-15.0)
[2016-06-21 04:09] LABS: BASOPHIL # 0.1 K/uL (0.0-0.2); BASOPHIL % 0.9 %; EOSINOPHIL # 0.4 K/uL (0.0-0.5); EOSINOPHIL % 5.8 %; HEMATOCRIT 22.9 % (33.0-46.0); HEMOGLOBIN 7.4 g/dL (10.0-15.0); IMMATURE GRANULOCYTE % 0.3 %; LYMPHOCYTE # 0.6 K/uL (0.8-4.0); LYMPHOCYTE % 9.1 %; MCH 29.6 pg (27.0-34.0); MCHC 32.3 gm/dL (32.0-36.5); MCV 91.6 fl (83.0-98.0); MONOCYTE # 0.8 K/uL (0.0-1.0); MPV 10.1 fl (9.4-12.4); NEUTROPHIL % 71.9 %; NRBC % 0 /100WBC (0-0.00); PLATELET COUNT 303 K/uL (150-450); WBC 6.9 K/uL (4.0-11.0)
[2016-06-21 04:26] LABS: ALBUMIN 2.7 gm/dL (3.5-5.0); ALK PHOS 43 IU/L (33-138); ALT 14 IU/L (12-78); ANION GAP 12.2 (10.0-19.0); AST 16 IU/L (10-40); BLOOD UREA NITROGEN 40 mg/dL (6-24); CALCIUM 8.6 mg/dL (8.5-10.5); CHLORIDE 106 mMol/L (96-110); CO2 24 mMol/L (22-32); CREATININE 1.4 mg/dL (0.5-1.1); ESTIMATED GFR (MDRD EQUATION) 36; POTASSIUM 4.2 mMol/L (3.7-5.1); SODIUM 138 mMol/L (135-145); TOTAL BILIRUBIN 0.2 mg/dL (0.0-1.5); TOTAL PROTEIN 5.9 g/dL (6.0-8.4)
[2016-06-24 12:31] LABS: HEMATOCRIT 23.5 % (33.0-46.0); MCH 29.7 pg (27.0-34.0); MCHC 31.5 gm/dL (32.0-36.5); MCV 94.4 fl (83.0-98.0); MPV 10.9 fl (9.4-12.4); PLATELET COUNT 338 K/uL (150-450); RBC 2.49 M/uL (3.50-5.50); RDW-CV 14.3 % (11.9-14.6); WBC 8.9 K/uL (4.0-11.0)
[2016-06-24 12:33] LABS: HEMOGLOBIN 7.4 g/dL (10.0-15.0)
[2016-06-24 12:53] LABS: ANION GAP 9.7 (10.0-19.0); CALCIUM 8.9 mg/dL (8.5-10.5); CREATININE 1.3 mg/dL (0.5-1.1); POTASSIUM 4.7 mMol/L (3.7-5.1)
[2016-06-24 13:12] LABS: ABSOLUTE NEUTROPHIL CT (ANC) 7.8 K/uL (1.8-7.8); LYMPHOCYTE # 0.3 K/uL (0.8-4.0); LYMPHOCYTE % 3 %; MONOCYTE # 0.4 K/uL (0.0-1.0); SEGMENTED NEUTROPHIL # 7.8 K/uL (1.8-7.8); SEGMENTED NEUTROPHIL % 88 %
[2016-06-25 04:42] LABS: CREATININE 1.5 mg/dL (0.5-1.1)
[2016-06-27 04:30] LABS: CREATININE 1.3 mg/dL (0.5-1.1)
[2016-06-28 05:49] LABS: ALBUMIN 2.5 gm/dL (3.5-5.0); ALK PHOS 45 IU/L (33-138); ALT 17 IU/L (12-78); ANION GAP 8.3 (10.0-19.0); AST 16 IU/L (10-40); BASOPHIL # 0.1 K/uL (0.0-0.2); BASOPHIL % 1.4 %; BLOOD UREA NITROGEN 23 mg/dL (6-24); CHLORIDE 108 mMol/L (96-110); CO2 27 mMol/L (22-32); CREATININE 1.2 mg/dL (0.5-1.1); EOSINOPHIL # 0.4 K/uL (0.0-0.5); EOSINOPHIL % 7.4 %; ESTIMATED GFR (MDRD EQUATION) 43; HEMATOCRIT 24.1 % (33.0-46.0); IMMATURE GRANULOCYTE % 0.2 %; LYMPHOCYTE # 0.7 K/uL (0.8-4.0); LYMPHOCYTE % 13.6 %; MCV 93.8 fl (83.0-98.0); MONOCYTE # 0.6 K/uL (0.0-1.0); MONOCYTE % 12.1 %; MPV 10.5 fl (9.4-12.4); NEUTROPHIL # (ANC) 3.4 K/uL (1.8-7.8); NEUTROPHIL % 65.3 %; NRBC % 0 /100WBC (0-0.00); PLATELET COUNT 345 K/uL (150-450); POTASSIUM 4.3 mMol/L (3.7-5.1); RBC 2.57 M/uL (3.50-5.50); RDW-CV 14.2 % (11.9-14.6); SODIUM 139 mMol/L (135-145); TOTAL PROTEIN 6.1 g/dL (6.0-8.4); WBC 5.1 K/uL (4.0-11.0)
[2016-06-28 05:51] LABS: HEMOGLOBIN 7.7 g/dL (10.0-15.0)
[2016-06-28 05:52] LABS: TOTAL BILIRUBIN 0.1 mg/dL (0.0-1.5)
[2016-06-29 05:32] LABS: ANION GAP 11.1 (10.0-19.0); CREATININE 1.3 mg/dL (0.5-1.1); POTASSIUM 4.1 mMol/L (3.7-5.1)
[2016-06-30 05:19] LABS: CREATININE 1.2 mg/dL (0.5-1.1)
[2016-07-01 04:19] LABS: ANION GAP 11.5 (10.0-19.0); CALCIUM 8.8 mg/dL (8.5-10.5); CREATININE 1.4 mg/dL (0.5-1.1); POTASSIUM 4.5 mMol/L (3.7-5.1)
[2016-07-03 18:01] LABS: ANION GAP 10.8 (10.0-19.0); CALCIUM 8.5 mg/dL (8.5-10.5); CREATININE 1.6 mg/dL (0.5-1.1); POTASSIUM 4.8 mMol/L (3.7-5.1)
[2016-07-04 04:01] LABS: ALBUMIN 2.5 gm/dL (3.5-5.0); ANION GAP 10.8 (10.0-19.0); CALCIUM 8.4 mg/dL (8.5-10.5); CREATININE 1.6 mg/dL (0.5-1.1); PHOSPHORUS 3.1 mg/dL (2.5-4.9); POTASSIUM 4.8 mMol/L (3.7-5.1)
[2016-07-04 17:54] LABS: URINE CREAT VOL 1040 mL; URINE CREATININE - 24 HR 374.4 mg/24HR (600-2500)
[2016-07-05 04:42] LABS: ALBUMIN 2.6 gm/dL (3.5-5.0); ALK PHOS 45 IU/L (33-138); ALT 16 IU/L (12-78); ANION GAP 13.2 (10.0-19.0); AST 18 IU/L (10-40); BLOOD UREA NITROGEN 34 mg/dL (6-24); CALCIUM 8.9 mg/dL (8.5-10.5); CHLORIDE 105 mMol/L (96-110); CO2 22 mMol/L (22-32); CREATININE 1.9 mg/dL (0.5-1.1); ESTIMATED GFR (MDRD EQUATION) 26; POTASSIUM 4.2 mMol/L (3.7-5.1); SODIUM 136 mMol/L (135-145); TOTAL PROTEIN 6.5 g/dL (6.0-8.4)
[2016-07-05 04:43] LABS: TOTAL BILIRUBIN 0.2 mg/dL (0.0-1.5)
[2016-07-05 04:46] LABS: BASOPHIL % 0.4 %; EOSINOPHIL % 0.3 %; HEMATOCRIT 24.1 % (33.0-46.0); IMMATURE GRANULOCYTE % 0.4 %; LYMPHOCYTE # 0.6 K/uL (0.8-4.0); LYMPHOCYTE % 7.4 %; MCV 93.8 fl (83.0-98.0); MONOCYTE # 0.8 K/uL (0.0-1.0); MONOCYTE % 10.3 %; MPV 10.6 fl (9.4-12.4); NEUTROPHIL # (ANC) 6.3 K/uL (1.8-7.8); NEUTROPHIL % 81.2 %; NRBC % 0 /100WBC (0-0.00); PLATELET COUNT 349 K/uL (150-450); RBC 2.57 M/uL (3.50-5.50); RDW-CV 14.2 % (11.9-14.6); WBC 7.8 K/uL (4.0-11.0)
[2016-07-05 04:49] LABS: HEMOGLOBIN 7.7 g/dL (10.0-15.0)
[2016-07-06 06:14] LABS: ALBUMIN 2.3 gm/dL (3.5-5.0); ANION GAP 11.7 (10.0-19.0); CALCIUM 8.6 mg/dL (8.5-10.5); CREATININE 2.4 mg/dL (0.5-1.1); PHOSPHORUS 3.7 mg/dL (2.5-4.9); POTASSIUM 4.7 mMol/L (3.7-5.1)
[2016-07-06 07:03] LABS: BASOPHIL # 0.1 K/uL (0.0-0.2); BASOPHIL % 0.9 %; EOSINOPHIL # 0.2 K/uL (0.0-0.5); EOSINOPHIL % 3.8 %; HEMATOCRIT 23.4 % (33.0-46.0); IMMATURE GRANULOCYTE % 0.2 %; LYMPHOCYTE # 0.8 K/uL (0.8-4.0); LYMPHOCYTE % 13.7 %; MCH 29.3 pg (27.0-34.0); MCHC 30.8 gm/dL (32.0-36.5); MCV 95.1 fl (83.0-98.0); MONOCYTE # 0.6 K/uL (0.0-1.0); MONOCYTE % 10.6 %; MPV 11.2 fl (9.4-12.4); NEUTROPHIL # (ANC) 3.9 K/uL (1.8-7.8); NEUTROPHIL % 70.8 %; NRBC % 0 /100WBC (0-0.00); PLATELET COUNT 324 K/uL (150-450); RBC 2.46 M/uL (3.50-5.50); RDW-CV 14.4 % (11.9-14.6); WBC 5.5 K/uL (4.0-11.0)
[2016-07-06 07:09] LABS: HEMOGLOBIN 7.2 g/dL (10.0-15.0)
[2016-07-07 05:55] LABS: ALBUMIN 2.2 gm/dL (3.5-5.0); ANION GAP 12.7 (10.0-19.0); CALCIUM 8.3 mg/dL (8.5-10.5); CREATININE 3.1 mg/dL (0.5-1.1); PHOSPHORUS 3.5 mg/dL (2.5-4.9); POTASSIUM 4.7 mMol/L (3.7-5.1)
[2016-07-07 23:53] LABS: METANEPHRINE [CALC] 0.089 mg/24h (0.052-0.341); NORMETANEPHRINE [CALC] 0.261 mg/24h (0.088-0.444); TOTAL METANEPHRINES [CALC] 0.35 mg/24h (0.140-0.785)
[2016-07-08 05:40] LABS: ALBUMIN 2.2 gm/dL (3.5-5.0); ANION GAP 11.6 (10.0-19.0); CALCIUM 8.5 mg/dL (8.5-10.5); PHOSPHORUS 3.4 mg/dL (2.5-4.9); POTASSIUM 4.6 mMol/L (3.7-5.1)
[2016-07-08 05:44] LABS: BASOPHIL # 0.1 K/uL (0.0-0.2); BASOPHIL % 1.2 %; EOSINOPHIL # 0.3 K/uL (0.0-0.5); EOSINOPHIL % 5.9 %; HEMATOCRIT 22.5 % (33.0-46.0); IMMATURE GRANULOCYTE % 0.2 %; LYMPHOCYTE # 0.6 K/uL (0.8-4.0); LYMPHOCYTE % 11.6 %; MCH 30.1 pg (27.0-34.0); MCV 94.1 fl (83.0-98.0); MONOCYTE # 0.6 K/uL (0.0-1.0); MONOCYTE % 11.4 %; MPV 10.8 fl (9.4-12.4); NEUTROPHIL # (ANC) 3.5 K/uL (1.8-7.8); NEUTROPHIL % 69.7 %; NRBC % 0 /100WBC (0-0.00); PLATELET COUNT 338 K/uL (150-450); RBC 2.39 M/uL (3.50-5.50); RDW-CV 14.3 % (11.9-14.6); WBC 5.1 K/uL (4.0-11.0)
[2016-07-08 05:45] LABS: HEMOGLOBIN 7.2 g/dL (10.0-15.0)
[2016-07-09 05:57] LABS: ALBUMIN 2.3 gm/dL (3.5-5.0); ANION GAP 11.4 (10.0-19.0); CALCIUM 8.8 mg/dL (8.5-10.5); PHOSPHORUS 3.3 mg/dL (2.5-4.9); POTASSIUM 4.4 mMol/L (3.7-5.1)
[2016-07-10 06:23] LABS: ALBUMIN 2.4 gm/dL (3.5-5.0); ANION GAP 13.3 (10.0-19.0); CALCIUM 8.5 mg/dL (8.5-10.5); CREATININE 3.1 mg/dL (0.5-1.1); MAGNESIUM 2.4 mg/dL (1.8-2.6); PHOSPHORUS 3.4 mg/dL (2.5-4.9); POTASSIUM 4.3 mMol/L (3.7-5.1)
[2016-07-10 06:30] LABS: BASOPHIL # 0.1 K/uL (0.0-0.2); EOSINOPHIL # 0.3 K/uL (0.0-0.5); EOSINOPHIL % 6.5 %; HEMATOCRIT 22.2 % (33.0-46.0); IMMATURE GRANULOCYTE % 0.4 %; LYMPHOCYTE # 0.6 K/uL (0.8-4.0); LYMPHOCYTE % 12.3 %; MCH 29.5 pg (27.0-34.0); MCHC 31.5 gm/dL (32.0-36.5); MCV 93.7 fl (83.0-98.0); MONOCYTE # 0.6 K/uL (0.0-1.0); MONOCYTE % 13.2 %; NEUTROPHIL # (ANC) 3.2 K/uL (1.8-7.8); NEUTROPHIL % 66.6 %; NRBC % 0 /100WBC (0-0.00); PLATELET COUNT 342 K/uL (150-450); RBC 2.37 M/uL (3.50-5.50); RDW-CV 14.5 % (11.9-14.6); WBC 4.8 K/uL (4.0-11.0)
[2016-07-11 06:05] LABS: ALBUMIN 2.5 gm/dL (3.5-5.0); ANION GAP 13.5 (10.0-19.0); CALCIUM 8.9 mg/dL (8.5-10.5); CREATININE 3.4 mg/dL (0.5-1.1); PHOSPHORUS 3.3 mg/dL (2.5-4.9); POTASSIUM 4.5 mMol/L (3.7-5.1)
[2016-07-12 06:05] LABS: ALBUMIN 2.2 gm/dL (3.5-5.0); ALK PHOS 37 IU/L (33-138); ALT 14 IU/L (12-78); ANION GAP 12.7 (10.0-19.0); AST 20 IU/L (10-40); CALCIUM 8.4 mg/dL (8.5-10.5); CHLORIDE 111 mMol/L (96-110); CO2 22 mMol/L (22-32); ESTIMATED GFR (MDRD EQUATION) 11; POTASSIUM 4.7 mMol/L (3.7-5.1); SODIUM 141 mMol/L (135-145); TOTAL PROTEIN 5.8 g/dL (6.0-8.4)
[2016-07-12 06:36] LABS: BLOOD UREA NITROGEN 53 mg/dL (6-24); TOTAL BILIRUBIN 0.1 mg/dL (0.0-1.5)
[2016-07-12 06:39] LABS: BASOPHIL # 0.1 K/uL (0.0-0.2); BASOPHIL % 0.8 %; EOSINOPHIL # 0.2 K/uL (0.0-0.5); EOSINOPHIL % 3.5 %; IMMATURE GRANULOCYTE % 0.2 %; LYMPHOCYTE # 0.6 K/uL (0.8-4.0); LYMPHOCYTE % 9.7 %; MCV 94.8 fl (83.0-98.0); MONOCYTE # 0.8 K/uL (0.0-1.0); MONOCYTE % 11.5 %; MPV 11.3 fl (9.4-12.4); NEUTROPHIL # (ANC) 4.9 K/uL (1.8-7.8); NEUTROPHIL % 74.3 %; NRBC % 0 /100WBC (0-0.00); PLATELET COUNT 344 K/uL (150-450); RBC 2.32 M/uL (3.50-5.50); RDW-CV 14.6 % (11.9-14.6); WBC 6.6 K/uL (4.0-11.0)
[2016-07-12 07:00] LABS: MCH 30.2 pg (27.0-34.0); MCHC 31.8 gm/dL (32.0-36.5)
[2016-07-12 13:55] LABS: INR - (THERAPEUTIC) 1.2 (0.92-1.07); PROTIME 12.6 SECONDS (9.8-11.4)
[2016-07-13 06:01] LABS: ALBUMIN 2.3 gm/dL (3.5-5.0); ANION GAP 14.1 (10.0-19.0); CALCIUM 8.8 mg/dL (8.5-10.5); PHOSPHORUS 3.6 mg/dL (2.5-4.9); POTASSIUM 5.1 mMol/L (3.7-5.1)
[2016-07-13 06:02] LABS: CREATININE 4.5 mg/dL (0.5-1.1)
[2016-07-13 14:36] LABS: HEMATOCRIT 26.3 % (33.0-46.0); HEMOGLOBIN 8.3 g/dL (10.0-15.0)
[2016-07-14 06:07] LABS: ALBUMIN 2.4 gm/dL (3.5-5.0); ANION GAP 14.3 (10.0-19.0); CALCIUM 8.8 mg/dL (8.5-10.5); PHOSPHORUS 3.7 mg/dL (2.5-4.9); POTASSIUM 5.3 mMol/L (3.7-5.1)
[2016-07-14 06:08] LABS: BASOPHIL # 0.1 K/uL (0.0-0.2); BASOPHIL % 0.9 %; EOSINOPHIL # 0.3 K/uL (0.0-0.5); EOSINOPHIL % 3.4 %; HEMATOCRIT 27.5 % (33.0-46.0); HEMOGLOBIN 8.7 g/dL (10.0-15.0); IMMATURE GRANULOCYTE % 0.4 %; LYMPHOCYTE # 0.6 K/uL (0.8-4.0); LYMPHOCYTE % 7.8 %; MCH 29.5 pg (27.0-34.0); MCHC 31.6 gm/dL (32.0-36.5); MCV 93.2 fl (83.0-98.0); MONOCYTE # 0.9 K/uL (0.0-1.0); MONOCYTE % 12.1 %; MPV 11.1 fl (9.4-12.4); NEUTROPHIL # (ANC) 5.8 K/uL (1.8-7.8); NEUTROPHIL % 75.4 %; NRBC % 0 /100WBC (0-0.00); PLATELET COUNT 360 K/uL (150-450); RBC 2.95 M/uL (3.50-5.50); RDW-CV 14.6 % (11.9-14.6); WBC 7.7 K/uL (4.0-11.0)
[2016-07-14 16:48] LABS: ALBUMIN 2.6 g/dL (3.3-4.8); ALPHA 1 0.3 g/dL (0.1-0.4); ALPHA 2 0.9 g/dL (0.5-1.1); GAMMA 0.8 g/dL (0.6-1.5); PROTEIN, TOTAL 5.5 g/dL (6.1-7.8)
[2016-07-15 05:49] LABS: ALBUMIN 2.1 gm/dL (3.5-5.0); ANION GAP 16.4 (10.0-19.0); CALCIUM 8.6 mg/dL (8.5-10.5); PHOSPHORUS 3.9 mg/dL (2.5-4.9); POTASSIUM 5.4 mMol/L (3.7-5.1)
[2016-07-15 05:51] LABS: CREATININE 5.6 mg/dL (0.5-1.1)
[2016-07-15 06:05] LABS: BASOPHIL # 0.1 K/uL (0.0-0.2); EOSINOPHIL # 0.3 K/uL (0.0-0.5); EOSINOPHIL % 3.7 %; HEMATOCRIT 26.8 % (33.0-46.0); HEMOGLOBIN 8.4 g/dL (10.0-15.0); IMMATURE GRANULOCYTE % 0.4 %; LYMPHOCYTE # 0.7 K/uL (0.8-4.0); LYMPHOCYTE % 8.4 %; MCH 29.4 pg (27.0-34.0); MCHC 31.3 gm/dL (32.0-36.5); MCV 93.7 fl (83.0-98.0); MONOCYTE # 0.9 K/uL (0.0-1.0); MONOCYTE % 10.5 %; MPV 11.4 fl (9.4-12.4); NEUTROPHIL # (ANC) 6.1 K/uL (1.8-7.8); NRBC % 0 /100WBC (0-0.00); PLATELET COUNT 338 K/uL (150-450); RBC 2.86 M/uL (3.50-5.50); RDW-CV 14.6 % (11.9-14.6); WBC 8.1 K/uL (4.0-11.0)
[2016-07-16 05:48] LABS: BASOPHIL # 0.1 K/uL (0.0-0.2); BASOPHIL % 0.7 %; EOSINOPHIL # 0.2 K/uL (0.0-0.5); EOSINOPHIL % 2.2 %; HEMATOCRIT 29.3 % (33.0-46.0); HEMOGLOBIN 9.4 g/dL (10.0-15.0); IMMATURE GRANULOCYTE # 0.1 K/uL (0.0-0.3); IMMATURE GRANULOCYTE % 0.5 %; LYMPHOCYTE # 0.5 K/uL (0.8-4.0); LYMPHOCYTE % 5.2 %; MCH 30.1 pg (27.0-34.0); MCHC 32.1 gm/dL (32.0-36.5); MCV 93.9 fl (83.0-98.0); MONOCYTE # 0.9 K/uL (0.0-1.0); MONOCYTE % 9.6 %; MPV 11.2 fl (9.4-12.4); NEUTROPHIL # (ANC) 7.9 K/uL (1.8-7.8); NEUTROPHIL % 81.8 %; NRBC % 0 /100WBC (0-0.00); PLATELET COUNT 344 K/uL (150-450); RBC 3.12 M/uL (3.50-5.50); RDW-CV 14.6 % (11.9-14.6); WBC 9.6 K/uL (4.0-11.0)
[2016-07-16 06:03] LABS: CALCIUM 8.7 mg/dL (8.5-10.5); PHOSPHORUS 4.2 mg/dL (2.5-4.9); POTASSIUM 5.4 mMol/L (3.7-5.1)
[2016-07-16 06:04] LABS: ANION GAP 16.4 (10.0-19.0); CREATININE 6.2 mg/dL (0.5-1.1)
[2016-07-16 16:12] LABS: HEMATOCRIT 25.7 % (33.0-46.0); HEMOGLOBIN 8.4 g/dL (10.0-15.0); MCH 29.8 pg (27.0-34.0); MCHC 32.7 gm/dL (32.0-36.5); MCV 91.1 fl (83.0-98.0); MPV 11.2 fl (9.4-12.4); RBC 2.82 M/uL (3.50-5.50); WBC 10.5 K/uL (4.0-11.0)
[2016-07-16 16:16] LABS: PLATELET COUNT 270 K/uL (150-450)
[2016-07-16 16:51] LABS: LYMPHOCYTE # 0.2 K/uL (0.8-4.0); LYMPHOCYTE % 2 %; MONOCYTE # 0.3 K/uL (0.0-1.0); SEGMENTED NEUTROPHIL % 95 %
[2016-07-17 09:18] LABS: ALBUMIN 2.5 gm/dL (3.5-5.0); CALCIUM 8.1 mg/dL (8.5-10.5); PHOSPHORUS 3.8 mg/dL (2.5-4.9)
[2016-07-17 09:20] LABS: ANION GAP 16.2 (10.0-19.0); CREATININE 4.1 mg/dL (0.5-1.1); POTASSIUM 4.2 mMol/L (3.7-5.1)
[2016-07-17 13:00] LABS: CH50 COMPLEMENT 108 (60-185)
[2016-07-18 05:39] LABS: BASOPHIL % 0.3 %; EOSINOPHIL # 0.1 K/uL (0.0-0.5); EOSINOPHIL % 0.5 %; HEMATOCRIT 25.6 % (33.0-46.0); HEMOGLOBIN 8.1 g/dL (10.0-15.0); IMMATURE GRANULOCYTE % 0.4 %; LYMPHOCYTE # 0.6 K/uL (0.8-4.0); LYMPHOCYTE % 5.9 %; MCH 29.1 pg (27.0-34.0); MCHC 31.6 gm/dL (32.0-36.5); MCV 92.1 fl (83.0-98.0); MONOCYTE % 10.1 %; NEUTROPHIL # (ANC) 8.3 K/uL (1.8-7.8); NEUTROPHIL % 82.8 %; NRBC % 0 /100WBC (0-0.00); PLATELET COUNT 244 K/uL (150-450); RBC 2.78 M/uL (3.50-5.50); RDW-CV 14.2 % (11.9-14.6); WBC 10.1 K/uL (4.0-11.0)
[2016-07-18 05:52] LABS: ALBUMIN 2.2 gm/dL (3.5-5.0); ANION GAP 15.7 (10.0-19.0); CALCIUM 8.4 mg/dL (8.5-10.5); PHOSPHORUS 3.7 mg/dL (2.5-4.9); POTASSIUM 4.7 mMol/L (3.7-5.1)
[2016-07-19 05:45] LABS: ALBUMIN 2.4 gm/dL (3.5-5.0); CALCIUM 7.9 mg/dL (8.5-10.5); CREATININE 3.6 mg/dL (0.5-1.1); TOTAL PROTEIN 5.4 g/dL (6.0-8.4)
[2016-07-19 05:46] LABS: ANION GAP 11.7 (10.0-19.0); BASOPHIL # 0.1 K/uL (0.0-0.2); BASOPHIL % 0.8 %; EOSINOPHIL # 0.2 K/uL (0.0-0.5); EOSINOPHIL % 2.1 %; IMMATURE GRANULOCYTE % 0.5 %; LYMPHOCYTE # 0.7 K/uL (0.8-4.0); LYMPHOCYTE % 9.5 %; MCH 29.6 pg (27.0-34.0); MCHC 32.1 gm/dL (32.0-36.5); MCV 92.3 fl (83.0-98.0); MONOCYTE # 1.1 K/uL (0.0-1.0); MONOCYTE % 13.9 %; NEUTROPHIL # (ANC) 5.6 K/uL (1.8-7.8); NEUTROPHIL % 73.2 %; NRBC % 0 /100WBC (0-0.00); PLATELET COUNT 207 K/uL (150-450); POTASSIUM 3.7 mMol/L (3.7-5.1); TOTAL BILIRUBIN 0.2 mg/dL (0.0-1.5); WBC 7.7 K/uL (4.0-11.0)
[2016-07-19 05:48] LABS: HEMOGLOBIN 7.7 g/dL (10.0-15.0)
[2016-07-20 05:52] LABS: ALBUMIN 2.9 gm/dL (3.5-5.0); ANION GAP 11.2 (10.0-19.0); CALCIUM 8.5 mg/dL (8.5-10.5); CREATININE 2.9 mg/dL (0.5-1.1); POTASSIUM 4.2 mMol/L (3.7-5.1)
[2016-07-20 05:54] LABS: PHOSPHORUS 1.6 mg/dL (2.5-4.9)
[2016-07-20 09:59] LABS: BASOPHIL # 0.1 K/uL (0.0-0.2); BASOPHIL % 0.6 %; EOSINOPHIL # 0.1 K/uL (0.0-0.5); EOSINOPHIL % 1.4 %; HEMOGLOBIN 8.7 g/dL (10.0-15.0); IMMATURE GRANULOCYTE % 0.4 %; LYMPHOCYTE # 0.5 K/uL (0.8-4.0); LYMPHOCYTE % 6.2 %; MCH 29.6 pg (27.0-34.0); MCHC 32.2 gm/dL (32.0-36.5); MCV 91.8 fl (83.0-98.0); MONOCYTE # 0.9 K/uL (0.0-1.0); MPV 11.2 fl (9.4-12.4); NEUTROPHIL # (ANC) 6.7 K/uL (1.8-7.8); NEUTROPHIL % 80.4 %; NRBC % 0 /100WBC (0-0.00); PLATELET COUNT 194 K/uL (150-450); RBC 2.94 M/uL (3.50-5.50); RDW-CV 14.2 % (11.9-14.6); WBC 8.4 K/uL (4.0-11.0)
[2016-07-20 10:11] LABS: INR - (THERAPEUTIC) 1.39 (0.92-1.07); PROTIME 14.6 SECONDS (9.8-11.4); PTT 41 SECONDS (25-32)
[2016-07-21 05:37] LABS: ALBUMIN 2.8 gm/dL (3.5-5.0); ANION GAP 12.3 (10.0-19.0); CALCIUM 8.7 mg/dL (8.5-10.5); PHOSPHORUS 2.8 mg/dL (2.5-4.9); POTASSIUM 4.3 mMol/L (3.7-5.1)
[2016-07-21 05:39] LABS: CREATININE 4.2 mg/dL (0.5-1.1)
[2016-07-22 05:36] LABS: ALBUMIN 2.6 gm/dL (3.5-5.0); ANION GAP 11.5 (10.0-19.0); CALCIUM 8.2 mg/dL (8.5-10.5); CREATININE 2.9 mg/dL (0.5-1.1); POTASSIUM 4.5 mMol/L (3.7-5.1)
[2016-07-22 05:37] LABS: PHOSPHORUS 1.8 mg/dL (2.5-4.9)
[2016-07-23 04:55] LABS: ALBUMIN 2.7 gm/dL (3.5-5.0); ANION GAP 10.6 (10.0-19.0); CALCIUM 8.5 mg/dL (8.5-10.5); PHOSPHORUS 2.2 mg/dL (2.5-4.9); POTASSIUM 4.6 mMol/L (3.7-5.1)
[2016-07-23 05:00] LABS: CREATININE 4.2 mg/dL (0.5-1.1)
[2016-07-24 05:42] LABS: ALBUMIN 2.5 gm/dL (3.5-5.0); CREATININE 2.4 mg/dL (0.5-1.1)
[2016-07-24 05:45] LABS: ANION GAP 11.1 (10.0-19.0); PHOSPHORUS 1.7 mg/dL (2.5-4.9); POTASSIUM 3.1 mMol/L (3.7-5.1)
[2016-07-25 06:25] LABS: ALBUMIN 2.9 gm/dL (3.5-5.0); CALCIUM 8.6 mg/dL (8.5-10.5)
[2016-07-25 06:31] LABS: ANION GAP 13.3 (10.0-19.0); CREATININE 4.2 mg/dL (0.5-1.1); POTASSIUM 4.3 mMol/L (3.7-5.1)
[2016-07-26 07:46] LABS: ANION GAP 12.7 (10.0-19.0); CALCIUM 8.7 mg/dL (8.5-10.5); PHOSPHORUS 2.5 mg/dL (2.5-4.9)
[2016-07-26 07:49] LABS: CREATININE 5.4 mg/dL (0.5-1.1)
[2016-07-26 07:52] LABS: POTASSIUM 4.7 mMol/L (3.7-5.1)
[2016-07-26 09:06] LABS: HEMATOCRIT 25.8 % (33.0-46.0); HEMOGLOBIN 8.4 g/dL (10.0-15.0); MCH 29.8 pg (27.0-34.0); MCV 91.5 fl (83.0-98.0); RBC 2.82 M/uL (3.50-5.50); RDW-CV 15.8 % (11.9-14.6); WBC 7.9 K/uL (4.0-11.0)
[2016-07-26 09:07] LABS: MPV 10.6 fl (9.4-12.4)
[2016-07-26 09:14] LABS: MCHC 32.6 gm/dL (32.0-36.5)
[2016-07-26 10:01] LABS: ABSOLUTE NEUTROPHIL CT (ANC) 6.3 K/uL (1.8-7.8); BANDED NEUTROPHIL # 0.1 K/uL (0.0-0.1); BANDED NEUTROPHILS % 1 %; LYMPHOCYTE # 0.2 K/uL (0.8-4.0); LYMPHOCYTE % 2 %; MONOCYTE # 0.7 K/uL (0.0-1.0); SEGMENTED NEUTROPHIL # 6.2 K/uL (1.8-7.8); SEGMENTED NEUTROPHIL % 79 %
[2016-07-26 10:33] LABS: PLATELET COUNT 240 K/uL (150-450)
[2016-07-26 10:41] LABS: TOTAL PROTEIN 6.3 g/dL (6.0-8.4)
[2016-07-26 10:42] LABS: TOTAL BILIRUBIN 0.3 mg/dL (0.0-1.5)
[2016-08-03] MEDS ORDERED: CATAPRES0.1 MG PO (10:13)
[2016-08-03] MEDS ORDERED: COLACE100 MG PO (10:13)
[2016-08-03] MEDS ORDERED: COREG25 MG PO (10:14)
[2016-08-03] MEDS ORDERED: DOXYCYCLINE100 MG PO (10:17)
[2016-08-03] MEDS ORDERED: FLORASTOR250 MG PO (10:18)
[2016-08-03] MEDS ORDERED: HYDRALAZINE HC100 MG PO (10:20)
[2016-08-03] MEDS ORDERED: LEVAQUIN500 MG PO (10:21)
[2016-08-03] MEDS ORDERED: LEXAPRO10 MG PO (10:23)
[2016-08-03] MEDS ORDERED: MELATONIN3 MG PO (10:24)
[2016-08-03] MEDS ORDERED: PEPCID20 MG PO (10:27)
[2016-08-03] MEDS ORDERED: ROCALTROL0.25 MCG PO (10:28)
[2016-08-03] MEDS ORDERED: SEROQUEL25 MG PO (10:29)
[2016-08-03] MEDS ORDERED: VITAMIN B-121000 MCG PO (10:30)
[2016-08-03] MEDS ORDERED: ONDANSETRON ODT4 MG PO (10:31)
[2016-08-03] MEDS ORDERED: DULCOLAX10 MG R (10:32)
[2016-08-03] MEDS ORDERED: GLUCAGON 1 MG PE1 MG SUB-Q (10:34)
[2016-08-03] MEDS ORDERED: GLUCOSE4 GM PO (10:36)
[2016-08-03] MEDS ORDERED: MILK OF MA400 MG/5 M PO (10:38)
[2016-08-03] MEDS ORDERED: MIRALAX PO527 GM/BOT PO (10:39)
[2016-08-03] MEDS ORDERED: XANAX0.25 MG PO (10:42)
[2016-08-11] MEDS ORDERED: OXYGEN M-15 INH (13:02)
[2016-08-11] MEDS ORDERED: SENSI-CARE PRO113 GM TOP (13:03)
== END 2016-07-27 11:20 | DRG 463 ==
LOC: EDSEX 17:55 → GMSU 17:55 → G3N 17:55 → GMSU 06-04 12:50
PROVIDERS: Family Medicine; Hospitalist; Internal Medicine; Internal Medicine Infectious Disease; Internal Medicine Nephrology; Nurse Practitioner; Nurse Practitioner Family; Physician Assistant; Radiology Diagnostic Radiology; ADMIT Orthopaedic Surgery
DX: T84.624A Infection and inflammatory reaction due to internal fixation device of right fibula, initial encounter (principal); A41.9 Sepsis, unspecified organism; N17.0 Acute kidney failure with tubular necrosis; J81.0 Acute pulmonary edema; G93.41 Metabolic encephalopathy; T81.32XA Disruption of internal operation (surgical) wound, not elsewhere classified, initial encounter; N18.4 Chronic kidney disease, stage 4 (severe); J90 Pleural effusion, not elsewhere classified; M00.071 Staphylococcal arthritis, right ankle and foot; N17.9 Acute kidney failure, unspecified; E44.0 Moderate protein-calorie malnutrition; T81.4XXA Infection following a procedure, initial encounter; M00.871 Arthritis due to other bacteria, right ankle and foot; I16.1 Hypertensive emergency; B95.61 Methicillin susceptible Staphylococcus aureus infection as the cause of diseases classified elsewhere; R00.1 Bradycardia, unspecified; E11.22 Type 2 diabetes mellitus with diabetic chronic kidney disease; E11.51 Type 2 diabetes mellitus with diabetic peripheral angiopathy without gangrene; E11.42 Type 2 diabetes mellitus with diabetic polyneuropathy; I12.9 Hypertensive chronic kidney disease with stage 1 through stage 4 chronic kidney disease, or unspecified chronic kidney disease; T84.622A Infection and inflammatory reaction due to internal fixation device of right tibia, initial encounter; Y83.8 Other surgical procedures as the cause of abnormal reaction of the patient, or of later complication, without mention of misadventure at the time of the procedure; Z79.4 Long term (current) use of insulin; E11.319 Type 2 diabetes mellitus with unspecified diabetic retinopathy without macular edema; E78.5 Hyperlipidemia, unspecified; E03.9 Hypothyroidism, unspecified; I25.10 Atherosclerotic heart disease of native coronary artery without angina pectoris; Z68.21 Body mass index [BMI] 21.0-21.9, adult; M48.06 Spinal stenosis, lumbar region; H54.8 Legal blindness, as defined in USA; Z79.82 Long term (current) use of aspirin; Z86.718 Personal history of other venous thrombosis and embolism; H40.9 Unspecified glaucoma; M17.11 Unilateral primary osteoarthritis, right knee; Z85.818 Personal history of malignant neoplasm of other sites of lip, oral cavity, and pharynx; Z85.828 Personal history of other malignant neoplasm of skin; B96.5 Pseudomonas (aeruginosa) (mallei) (pseudomallei) as the cause of diseases classified elsewhere; B96.89 Other specified bacterial agents as the cause of diseases classified elsewhere; F41.9 Anxiety disorder, unspecified; F32.9 Major depressive disorder, single episode, unspecified; E11.65 Type 2 diabetes mellitus with hyperglycemia; K59.00 Constipation, unspecified; G47.00 Insomnia, unspecified; E11.649 Type 2 diabetes mellitus with hypoglycemia without coma; R11.0 Nausea; D63.1 Anemia in chronic kidney disease; I95.9 Hypotension, unspecified; R07.1 Chest pain on breathing; R80.9 Proteinuria, unspecified; E87.6 Hypokalemia
CPT/HCPCS: A9270; C1750; C1751; C1887; C8902; J0360; J0690; J0692; J0780; J0878; J1040; J1170; J1644; J1650; J1956; J2001; J2270; J2405; J2765; J2997; J3010; J3370; J3480; J7030; J7040; J7050; J7120; P9016; P9047; Q4081

== ENCOUNTER 2016-08-04 11:17 | Outpatient (CLI) | payer OTHER, MEDICARE, BC, MEDICAID ==
[~2016-08-04 11:17] MED LIST changes: +CATAPRES0.1 MG PO; +COLACE100 MG PO; +COREG25 MG PO; +DOXYCYCLINE100 MG PO; +DULCOLAX10 MG R; +FLORASTOR250 MG PO; +GLUCAGON 1 MG PE1 MG SUB-Q; +GLUCOSE4 GM PO; +HYDRALAZINE HC100 MG PO; +LEVAQUIN500 MG PO; +LEXAPRO10 MG PO; +MELATONIN3 MG PO; +MILK OF MA400 MG/5 M PO; +MIRALAX PO527 GM/BOT PO; +ONDANSETRON ODT4 MG PO; +PEPCID20 MG PO; +ROCALTROL0.25 MCG PO; +SEROQUEL25 MG PO; +VITAMIN B-121000 MCG PO; +XANAX0.25 MG PO
[2016-08-11] MEDS ORDERED: OXYGEN M-15 INH (13:02)
[2016-08-11] MEDS ORDERED: SENSI-CARE PRO113 GM TOP (13:03)
== END 2016-08-04 17:10 | disposition disaster alternative care site (69) ==
LOC: GOPD 11:17 → GMSU 11:17 → GOPD 12:00
PROC: 05PY33Z Removal of Infusion Device from Upper Vein, Percutaneous Approach (ICD-10-PCS; principal; 2016-08-04)
PROC: 05HM33Z Insertion of Infusion Device into Right Internal Jugular Vein, Percutaneous Approach (ICD-10-PCS; 2016-08-04)
PROC: B513YZA Fluoroscopy of Right Jugular Veins using Other Contrast, Guidance (ICD-10-PCS; 2016-08-04)
DX: Z49.02 Encounter for fitting and adjustment of peritoneal dialysis catheter (principal)
CPT/HCPCS: C1769; J0690; J1642; J1644; J2001; J3010; J7040; P9016

== ENCOUNTER → 2016-08-10 | Outpatient (CLI) | payer OTHER, MEDICARE, BC, MEDICAID ==
[~2016-08-10] MED LIST changes: +ALOE VESTA226 GM TOP; +LASIX40 MG PO; +OXYGEN M-15 INH; +SENSI-CARE PRO113 GM TOP; +ULTRAM50 MG PO
[2016-08-10 09:17] LABS: BASOPHIL % 1.2 %; EOSINOPHIL # 0.1 K/uL (0.0-0.5); EOSINOPHIL % 3.8 %; HEMATOCRIT 25.9 % (33.0-46.0); HEMOGLOBIN 8.8 g/dL (10.0-15.0); IMMATURE GRANULOCYTE % 0.3 %; LYMPHOCYTE # 0.5 K/uL (0.8-4.0); LYMPHOCYTE % 15.7 %; MCH 30.3 pg (27.0-34.0); MCV 89.3 fl (83.0-98.0); MONOCYTE # 0.5 K/uL (0.0-1.0); MONOCYTE % 13.7 %; MPV 12.1 fl (9.4-12.4); NEUTROPHIL # (ANC) 2.2 K/uL (1.8-7.8); NEUTROPHIL % 65.3 %; NRBC % 0 /100WBC (0-0.00); RDW-CV 15.6 % (11.9-14.6); WBC 3.4 K/uL (4.0-11.0)
[2016-08-10 09:19] LABS: PLATELET COUNT 79 K/uL (150-450)
[2016-08-10 09:31] LABS: ANION GAP 12.4 (10.0-19.0); CALCIUM 8.1 mg/dL (8.5-10.5); CREATININE 1.4 mg/dL (0.5-1.1); POTASSIUM 3.4 mMol/L (3.7-5.1); TOTAL BILIRUBIN 0.5 mg/dL (0.0-1.5); TOTAL PROTEIN 6.2 g/dL (6.0-8.4)
== END | disposition disaster alternative care site (69) ==
PROVIDERS: Family Medicine
DX: M01.X71 Direct infection of right ankle and foot in infectious and parasitic diseases classified elsewhere (principal); E11.8 Type 2 diabetes mellitus with unspecified complications

== ENCOUNTER 2016-08-13 10:18 | Inpatient (IN) | payer MEDICARE, BC, MEDICAID ==
[~2016-08-13] VITALS: Ht 157.5 cm; Wt 54.2 kg
--- NOTE | ~2016-08-13 | HP ---
PATIENT'S NAME: PORTIA FRY [facility] AGE: 80 Y [address] ROOM: [place] [address] LOCATION: [facility] [place] ADMIT DATE: 08/13/2016 History & Physical DISCHARGE DATE: FAMILY PHYSICIAN: CAROLYN NOGUERA MD ATTENDING PHYSICIAN: Beau Torres DATE OF SERVICE: CHIEF COMPLAINT: Left proximal thigh and groin pain. HISTORY: This 80-year-old female is hospitalized at [facility] recovering from a right ankle fracture and infection, the hardware was removed couple weeks ago. She has a wound VAC. She has no pain in the ankle. She says that 2 or 3 days ago, she started having pain in her left anterior proximal thigh and groin. There was no history of injury. She did stumble 2 days ago and again yesterday but did not actually fall. She denies numbness or tingling in the leg. No fevers, chills, or infection. No radicular symptoms. She does have a history of spinal stenosis and back pain but that is not bothering her at present and that pain was more in the right leg, not the left. She is a type 2 diabetic. She has had no fevers or chills. No other myalgias. PAST MEDICAL HISTORY: Basal cell carcinoma of the skin, cardiovascular disease, chronic renal failure stage 3, was on dialysis but that has been stopped, coronary artery disease, type 2 diabetes, macular degeneration, dyslipidemia, essential hypertension, glaucoma, and osteoarthritis. ALLERGIES: NONE. CURRENT MEDICATIONS: 1. Amlodipine. 2. Atorvastatin. 3. Benazepril. 4. Calcium with vitamin D. 5. Famotidine. 6. Fenofibrate. 7. Furosemide. 8. Nitro-Dur. 9. Lotensin. 10. Hobson. 11. Ocuvite. 12. Synthroid. [facility] 80 Y [address] ROOM: [place] [address] LOCATION: [facility] [place] ADMIT DATE: 08/13/2016 History & Physical DISCHARGE DATE: FAMILY PHYSICIAN: CAROLYN NOGUERA MD ATTENDING PHYSICIAN: Beau Torres 13. Timolol maleate. SURGICAL HISTORY: No surgeries on the left hip. SOCIAL HISTORY: Does not smoke or drink alcoholic beverages. Currently in assisted living but is hospitalized at present at [facility]. REVIEW OF SYSTEMS: No coughs, colds, fevers, chills, sore throats. No chest pain, shortness of breath, or trouble breathing. No nausea, vomiting, diarrhea, or constipation. No dysuria or hematuria. No skin changes. No malaise. No change in weight. PHYSICAL EXAMINATION: GENERAL: She is awake, alert, slender female in no acute distress. Oriented x3. Mood and affect appropriate. NECK: Moves well. HEENT: Atraumatic, normocephalic. PERRL. EOMI. TMs clear. Throat clear. NECK: Supple. CHEST: Clear to auscultation. HEART: Regular rhythm. ABDOMEN: Soft, nontender without masses. SPINE: Nontender. EXTREMITIES: Hips have good range of motion in internal and external rotation, 40 degrees. Flexion to 100 degrees, abduction 30 degrees. She has some mild tenderness and muscle spasm over the hip flexors on the left. There is no warmth, redness, or ecchymosis. No swelling. Sensation and motor function intact. Lower extremities, pulses good, reflexes equal. She has a healing wound over the lateral right ankle which is not red and has no drainage. IMPRESSION: 1. Muscle spasm, left hip. Rule out stress fracture. 2. Type 2 diabetes. 3. Renal failure. 4. Status post ORIF right ankle with infection, now resolved. 5. Hypothyroidism. 6. Vascular disease. 7. Essential hypertension. PLAN: We will check an x-ray of her pelvis and hip to make sure there is no fracture. She is given some diazepam a very low-dose for muscle spasm. We will follow her along. PATIENT'S NAME: PORTIA FRY [facility] AGE: 80 Y [address] ROOM: [place] [address] LOCATION: [facility] [place] ADMIT DATE: 08/13/2016 History & Physical DISCHARGE DATE: FAMILY PHYSICIAN: CAROLYN NOGUERA MD ATTENDING PHYSICIAN: Beau Torres FANG E MD PACO ESTRELLA/modl /[id number] CC: Arun Talley MD D: T: [id number] HISTORY & PHYSICAL
--- NOTE | ~2016-08-13 | DS ---
PATIENT'S NAME: PORTIA FRY [facility] AGE: 80 Y [address] ROOM: [address] [address] LOCATION: [facility] [place] ADMIT DATE: 08/13/2016 Discharge Summary DISCHARGE DATE: 08/25/2016 FAMILY PHYSICIAN: Compa Pillai MD ATTENDING PHYSICIAN: Beau Gunn ADMITTING DIAGNOSIS: Infected hardware, right ankle. PROCEDURE: Removal of plate and screws. HOSPITAL COURSE: The patient was admitted from the outpatient setting with infected hardware after an ankle fracture. Plans were made for the patient to be admitted. The hardware was removal. Cultures were obtained. Wound Care evaluated and possible use of wound VAC versus closure of the wound. She had the hardware removed and it was felt at the time of surgery that a wound VAC would be best for her. Wound nurses were consulted and wound VAC placed. Postop day #1, the patient was afebrile. Cultures were pending. The patient remained on Ancef 1 g IV q.8h. She had an AFO ordered. This was fit and placed for her. On postop day #2, continued to be afebrile. In the footdrop brace, the patient corrected nearly to neutral. Cultures were growing something, and as soon as the organism was identified, the adjustment was made to the antibiotics. Infectious Disease was consulted for recommendations. They suggested stopping the cefazolin, adding oral doxycycline and b.i.d. ciprofloxacin. Arrangements were made for the patient to have outpatient wound VAC care. The patient had a dialysis catheter that was removed while in the hospital. Wound was granulating nicely under the wound VAC and plans were made to change the dressing cares to normal saline wet-to-drys on the ankle, change b.i.d. Care Management to arrange transfers for the patient to [facility], and the patient was discharged to [facility] on her prehospitalization medications with the following additions. The patient was made weightbearing as tolerated. Follow up with Dr. Gunn on Tuesday for wound check. Walk as tolerated. When not walking, footdrop brace on it. Normal saline wet-to- drys b.i.d. change, and she was discharged home on ciprofloxacin 500 mg p.o. b.i.d. and hydrocodone as needed for pain control. PERTINENT LAB: She did grow out Staph epidermidis with resistance to Bactrim, clindamycin, penicillin, oxacillin, erythromycin, levofloxacin. MARY LEMA FOR BEAU GUNN MD KAH/modl PATIENT'S NAME: PORTIA FRY [facility] AGE: 80 Y [address] ROOM: [place] [address] LOCATION: [facility] [place] ADMIT DATE: 08/13/2016 Discharge Summary DISCHARGE DATE: 08/25/2016 FAMILY PHYSICIAN: Compa Pillai MD ATTENDING PHYSICIAN: Beau Gunn /[id number] d: 09/16/16 0441 t: 09/29/16 1243, DISCHARGE SUMMARY
--- NOTE | ~2016-08-13 | OR ---
PATIENT'S NAME: PORTIA FRY [facility] AGE: 80 Y [address] ROOM: [place] [address] LOCATION: [facility] [place] ADMIT DATE: 08/13/2016 OR/Procedure Report DISCHARGE DATE: FAMILY PHYSICIAN: CAROLYN NOGUERA MD ATTENDING PHYSICIAN: Beau Gunn SURGEON: Beau Gunn MD TUBING SUPERVISOR: DATE OF PROCEDURE: 08/13/2016 PREOPERATIVE DIAGNOSIS: Open wound, right ankle with exposed lateral malleolar plate and tendo calcaneal contracture, right ankle. POSTOPERATIVE DIAGNOSIS: Open wound, right ankle with exposed lateral malleolar plate and tendo calcaneal contracture, right ankle. OPERATION PERFORMED: Removal of plate and percutaneous tendo-Achilles lengthening. ANESTHESIA: MAC. INDICATIONS: This is an elderly female, who is diabetic and had an ankle fracture about 4 months ago fixed with ORIF. At about 4 weeks after her ORIF, she had a wound dehiscence over the lateral malleolar plate. She has been treated with antibiotic and wound VAC, and now dressing changes at the [place] [facility]. At this point, it appears that the fracture is likely healed and she has been able to bear weight on the ankle. Their thought is that we will remove the plate and resume the wound VAC, and see if her wound will granulate in, and we can prevent or avoid below-knee amputation. DESCRIPTION OF PROCEDURE: The patient was brought to the operating room, after an ankle block had been performed. In the operating room, her right lower extremity was prepped and draped in an aseptic manner. After a T8 screwdriver had finally been located, the screws in the plate were removed and the plate itself removed. The two anterior to posterior lag screws in the distal fibula were removed as well. The wound was irrigated copiously with saline. A wound VAC was applied and it appeared to have good suction. The patient was sent to the recovery area, having tolerated the procedure well. She will be admitted from there, and we will plan to keep her in the hospital for wound VAC care and wound care. BEAU GUNN MD PATIENT'S NAME: PORTIA FRY [facility] AGE: 80 Y [address] ROOM: [place] [address] LOCATION: [facility] [place] ADMIT DATE: 08/13/2016 OR/Procedure Report DISCHARGE DATE: FAMILY PHYSICIAN: CAROLYN NOGUERA MD ATTENDING PHYSICIAN: Beau Gunn/marques /[id number] d: 08/13/16 2256 t: 08/24/16 1324, OPERATIVE SUMMARY
[~2016-08-13 10:18] MED LIST changes: -ALOE VESTA226 GM TOP; -LASIX40 MG PO; -ULTRAM50 MG PO
--- NOTE | 2016-08-14 04:09 | NUR ---
Significant Event: Alert and oriented X3. Hypertensive at beginning of shift, has improved. Last BP of 129/60 with heart rate 60. Sats at 97% on 2L 02. Voided X2. Plan to get patient up to bedside commode with next void. Is NWB to RLE. Dialysis cath to R) chest. Cast splint to RLE is CDI. Wound vac in place with no output. Pt is still numb from the block, is able to slightly wiggle toes, good cap refill, toes warm, unable to assess pedal pulse. IV to L) wrist SL'd. Denies pain, though will give pain pill this am for anticipated pain. Pt has slept well throughout night. Repositioned q 2 hr. Open area to coccyx. Accucheck at HS was 120. Follow up: Need daughterto bring eye drops
--- NOTE | 2016-08-14 19:20 | NUR ---
SBP high in the upper 50's - 60's. Bradycardia with pulse in 50's. Held Coreg x2 for pulse under 60. AFO brace to right leg, full wt bearing. 2 Assist with walker and gait belt. Wound Vac to 125 continuous with small drainage. No complaints of pain today, [place] Q4hrs PRN. Dialysis cath to R) chest, dialysis on Mon., Wed. and Fri. Open wound to coccyx with barrier cream applied and open to air. IV L) wrist. Dishcarge to [facility] but not with Wound Vac.
--- NOTE | 2016-08-15 06:09 | NUR ---
Significant Event: 2100 BS 131, NO CORRECTIONS NEEDED. BP MEDICATIONS WITH PARAMETERS HELD DUE TO NHV=113. AFO TO RIGHT LEG CDI. COOPERATIVE WITH CARES. Follow up:
--- NOTE | 2016-08-15 20:20 | NUR ---
AAOX3. UP WITH 1 ASSIST, WALKER AND GAIT BELT WITH AFO BRACE. HEEL PROTECTOR BOOT ON WHEN NOT AMBULATING. WOUND VAC TO RIGHT FOOT. IV SL TO L ) WRIST. TOLERATING ADA DIET. BS ACHS. VSS THOUGH STILL HTN. AFEBRILE ON ROOM AIR. NO N/V OR BM THIS SHIFT. NORCO PO X1.
--- NOTE | 2016-08-16 06:58 | NUR ---
Significant Event: Pt up in chair beginning of shift. Is a 1 assist with walker and gait belt and lower leg brace needs to be on when ambulating. Foot drop boot needs to be on when in chair or bed. No c/o pain. Slept well. Cont with wound vac. Follow up:
--- NOTE | 2016-08-16 14:05 | NUR ---
Called Margot at [facility] - family holding the bed and they will take back whenever the wound vac is off, could be 2 weeks. 1625 Called patients daughter Yael as she was looking for me. Left her a message about [facility] holding the bed and my direct line if she wants to call me tomorrow.
--- NOTE | 2016-08-16 14:48 | NUR ---
Significant Event: Patient up with 1 assist, walker, and gait belt. Per orders patient is to have foot drop boot on while in the chair and her AFO brace and shoe on while she is up ambulating. Denies pain. Ate well for breakfast and lunch. WOC nurse up to change wound vac to leg/foot. Per patient, Dr. Clemons said she would be here about 2 weeks. Follow up: Continue to monitor.
--- NOTE | 2016-08-17 05:26 | NUR ---
PATIENT IS ALERT AND ORIENTATED. AMBULATES WITH GB WALKER AND ONE ASSIST. VSS ON RA. IV TO L FA MEDIAL SL. ACHS NO COVERAGE NEEDED. NO COMPLAINTS OF PAIN OR DISCOMFORT. VS WNL ON RA. PLEASANT AND COOPERATIVE WITH CARES
--- NOTE | 2016-08-17 15:49 | NUR ---
Significant Event: Patient has done well this shift. [place] given times one at 1200 with relief noted. Patient has not had a BM on day shift but was able to have 2 BM's during the night. Cooperative with cares and has worked well with therapy. Wound vac to right lower extremity intact with unmeasureable amount out. Good intake at both meals. Refuses sliding scale insulin. Compliant with foot pump to left foot. Follow up: Continue to monitor.
--- NOTE | 2016-08-18 05:21 | NUR ---
A&O AMBULATES WITH ONE ASSIST GB AFO AND WALKER. LIKES TO SIT IN CHAIR WITH FEET UP. ATE WELL FOR SUPPER. VSS PN RA. IV TO L WRIST SL. WOUND VAC TO RIGHT LOWER LEG. NO SLIDING SCALE INSULIN NEEDED THIS SHIFT. PLEASANT AND COOPERATIVE WITH CARES.
--- NOTE | 2016-08-18 13:49 | NUR ---
A-SCREENED D/T LOS WOUND VAC TO R)LOWER LEG. OA TO COCCYX. DIALYSIS MWF HT: 62 IN. WT: 54.2 KG. BMI: 21.8. WT DECREASED FROM PREVIOUS ADMIT IN JULY R/T TO FLUID CHANGES AND DIALYSIS. LABS: NA 139, K+ 3.4, GLU 80, BUN 12, CLINICAL ATHLETIC INSTRUCTOR 1.4, ALB 3.0 MEDS: NOVOLOG (MILD SS), TRICOR, ZOFRAN, MVI, XANAX, NORCO, ROCALTROL, ANCEF, PEPCID, COLACE, LEXAPRO, MELATONIN, SEROQUEL. DIET RX: CONSISTENT CARB. PO INTAKE 75-100%. VISITED W/PT TODAY. PT REPORTS THAT HER APPETITE IS MUCH BETTER AND SHE IS EATING MUCH BETTER THAN LAST TIME SHE WAS HERE. DISCUSSED SUPPLEMENT OPTIONS W/PT TO PROVIDE ADDITIONAL NUTRIENTS TO PROMOTE HEALING. PT HAS LIKED GLUCERNA IN THE PAST; SHE WAS AGREEABLE TO RECEIVING QD AT [facility]. EST NUTR NEEDS: 1750 KCALS (35 KCAL/KG IBW) 60-75 GM PROTEIN (1.2-1.5 GM/KG IBW) 1 ML FLUID/KCAL D-AT NUTRITION RISK W/INCREASED NUTRIENT NEEDS R/T ALTERED SKIN INTEGRITY, ALTERED RENAL FXN AEB OA TO COCCYX, WOUND VAC TO R)LEG, AND HD. I-STRAWBERRY GLUCERNA QD AT [facility] M/E-GOAL: PO INTAKE >/=75% FOR DURATION OF ADMIT 1)F/U PO INTAKE, SUPPLEMENT, SKIN, AND POC IN 5-6 DAYS 2)ASSIST NEEDED
--- NOTE | 2016-08-18 19:50 | NUR ---
Significant Event: Patient is alert and oriented x3. VSS and on RA. IV to the L)wrist, SL. Denies pain. Wound Vac changed out today. Accuchecks AC/HS. Drop boot on when in bed and in the chair. AFO brace on with movement. CMS within normal limits. Up with SBA and walker. Started on PO ABX. Bag bath given. Cooperative with cares.
--- NOTE | 2016-08-19 03:01 | NUR ---
Significant Event: A/O X 3. SAT UP IN RECLINER CHAIR, FEET ELEVATED. AMBULATED TO BR WITH BRACE ON RIGHT LEG, ONE ASSIST GAITBELT-WALKER VOIDS NO PROBLEM. NO BM. APPETITE GOOD. NO NAUSEA. WOUND VAC TO RIGHT LOWER LEG. IV SALINE LOCK TO LEFT WRIST. AT HS ACCUCHECK WAS 221, PATIENT REFUSED INSULIN FOR COVERAGE. Follow up:
--- NOTE | 2016-08-19 15:51 | NUR ---
Significant Event: Patient alert and oriented x3. Up 1PA with gait belt and walker. IV to left wrist-SL. Wound Vac to right lower leg- scant amount of drainage. Dialysis line to right upper chest- not getting dialysis at this time. Patient denies pain and nausea. AFO boot on while walking. Foot drop boot on while at rest. Legs elevated. Small open area x2 on bottom- barrier cream applied. ACHS ACCU checks- last 155- no insulin needed. NO BM today. Pt C/O soreness on posterior left upper leg- small mass/swelling noted but was not painful to touch. Has eaten well today. Cooperative with cares.
--- NOTE | 2016-08-20 02:26 | NUR ---
Significant Event: Patient alert and oriented X4. Up with one person assist. Foot drop boot on while in bed or chair and AFO brace on when walking. Denies nausea. [place] given X1 around 0035 for hip pain. Slept after. Vitals stable and on room air. Cream to buttocks scheduled. Reposition often. Sores to buttocks noted. Cooperative with cares. Wound vac in place to R) ankle. Follow up: Monitor wound vac output
--- NOTE | 2016-08-20 15:01 | NUR ---
Social visit with patients daughter Yael. Patient likes it at [facility] and is getting involved with activities. She is paying to hold the bed.
--- NOTE | 2016-08-20 17:19 | NUR ---
Significant event: Up in chair, One assist. Wound vac intact to right ankle. Appetite good, drinking good. Pet[place] once this am at beginning of shift, has denied pain since. Dialysis cath intact to right chest. Cream to buttocks scheduled. AFO on while walking, foot drop boot on at rest.
--- NOTE | 2016-08-21 05:04 | NUR ---
Significant Event: AAOX4. VSS ON RA. PIV TO L HAND SL. PT WAS ABLE TO AMBULATE, WITH AFO AND SHOES ON, TO TOILET WITH 1PA, BUT NEEDED EXTENSIVE 2PA ONCE IT WAS TIME TO RETURN TO BED. PT WAS UNABLE TO PROPERLY PUT WEIGHT ON HER LEFT LEG TO AMBULATE AND REQUIRED A WHEELCHAIR. ONCE IN BED PT WAS ABLE TO MOVE BLE, STATED HER LEGS FELT FINE BUT JUST COULDN'T GET IT TO WORK. RESTED WELL IN BED FOR REST OF SHIFT. 1 VOID. NO BM'S. COOPERATIVE WITH CARES. Follow up:
--- NOTE | 2016-08-21 16:09 | NUR ---
Significant Event: Pt c/o intermittent generalized discomfort, good relief with pain meds. Refuses to get up out of bed today d/t discomfort. Wound vac to right foot d/i. Dialysis line dressing loose so reinforced with tape, will need to be changed. Refuses insulin when needed per sliding scale. Follow up:
--- NOTE | 2016-08-22 03:05 | NUR ---
Significant Event: Patient alert and oriented X4. Refused getting up at all this shift, stated she would try tomorrow. L) leg/hip hurting and doesn't want to make it worse. Using bedpan. Wound vac to R) ankle. Vitals stable and on room air. Dialysis line to R) chest. Refusing insulin ACHS accuchecks. Follow up:
--- NOTE | 2016-08-22 16:14 | NUR ---
Significant Event: Pt c/o intermittent pain to left leg, percocet given this am with some relief. Up in recliner most of day. Around 1130, had to lower pt to floor in br as her left leg was giving out, no injuries and was not a fall, family is aware. MOM given this am for constipation. Wound vac and dressing d/i to right lower leg. Follow up:
--- NOTE | 2016-08-23 05:09 | NUR ---
Significant Event: Pt A&Ox3. VS stable, remains on RA. Minimal pain. Did give [place] @ 0419 for pain in LLE and headache. Accuchecks ACHS--if insulin is needed, will refuse; ADA diet. WBAT RLE. Up to BSC or bathroom. Will be up in chair most of the day. PIV L hand, SL. HD catheter to Rt chest; drsg reinforced yesterday. Follow up: Continue plan of care.
[2016-08-23 10:30] LABS: INR - (THERAPEUTIC) 1.21 (0.92-1.07); PROTIME 12.7 SECONDS (9.8-11.4)
[2016-08-23 10:37] LABS: ALBUMIN 2.3 gm/dL (3.5-5.0); ANION GAP 10.5 (10.0-19.0); CALCIUM 8.2 mg/dL (8.5-10.5); CREATININE 1.7 mg/dL (0.5-1.1); PHOSPHORUS 2.7 mg/dL (2.5-4.9); POTASSIUM 5.5 mMol/L (3.7-5.1)
--- NOTE | 2016-08-23 11:55 | NUR ---
Faxed updates to [facility] on patient. On cover sheet let them know there was talk of removing wound vac by the end of the week potentially.
--- NOTE | 2016-08-23 13:27 | NUR ---
A-NUTRITION F/U WOUND VAC TO R)LEG. HD HAS BEEN D/C. (+)BM LABS: NA 141, K+ 5.5, GLU 165, BUN 21, COMMUNITY RELATIONS ADVISOR 1.7, ALB 2.3 MEDS: VALIUM DIET RX: CONSISTENT CARB W/STRAWBERRY GLUCERNA QD AT [facility]. PO INTAKE HAS BEEN GOOD; 75-100%. EST NUTR NEEDS: 9739-5681 KCALS (30-35 KCALS/KG) 60-75 GM PROTEIN (1.2-1.5 GM/KG) D-AT NUTRITION RISK W/INCREASED NUTRIENT NEEDS R/T ALTERED SKIN INTEGRITY AEB WOUND VAC TO R)LEG I-CONTINUE W/GLUCERNA QD AT [facility] M/E-GOAL: PO INTAKE >/=75% FOR DURATION OF ADMIT 1)F/U PO INTAKE, SUPPLEMENT, SKIN, AND POC IN 4-5 DAYS 2)ASSIST NEEDED
--- NOTE | 2016-08-23 18:32 | NUR ---
Significant event: Pt. denies pain this shift. Wound vac & dressing changed this AM. Transfering between bed and chair throughout shift. Turned every 2 hours. Large BM this shift. Accuchecks ACHS. 1PA with transfers. Must wear shoe brace when up. Has brace on in bed also. PIV to L)hand, flushes & GBR. HD catheter to R)chest, will be pulled tomorrow AM at 0900. NPO at 00. Assessments are once per shift. HTN meds held at 1200 and 1800 due to low pulse, low BP. New order for PRN valium for spasms. Working with PT/OT. R)arm is 1+ edematous. WBAT to RLE.
--- NOTE | 2016-08-24 04:48 | NUR ---
Significant Event: Pt up in chair beginning of shift. Brace and shoe on when pt up. Foot drop boot when in chair/bed. Gave 1 norco around 2230 for left upper thigh pain. Accuchecks AC/HS and pt refused HS insulin. NPO since midnight for dialysis catheter removal at 0900 per Radiology. Wound VAc with no output. Follow up: Cont to monitor.
--- NOTE | 2016-08-24 11:15 | NUR ---
Called Margot at [facility]. She got my updates yesterday. Let her know patient no longer needs dialysis. May be ready for /Tuesday return. She voiced they have a very busy week and if possible would like to have her back afternoon if she is stable and wound vac is off. Placed a note on the chart for the doctor's about [facility] availability.
--- NOTE | 2016-08-24 16:23 | NUR ---
Significant Event:Is A/O.Rt.upper chest dialysis cath removed today & gauze/tegaderm over site that is D/I.Refused sliding scale insulin at noon.Has been up with 1 & walker with chair close.Rt.foot wound vac intact.Eating & drinking well.No pain meds given. Follow up:
--- NOTE | 2016-08-25 01:09 | NUR ---
Significant Event: Patient alert and oriented x3. Up with one assist and walker. Right AFO boot when up. Wound vac in place to right leg with no drainage draining. IV to left forearm saline locked. HRs 50s-60s, SBPs 120s-140s. Dialysis line removed 08/24 and needs to be in place for 17hrs, dressing dry and intact. [place] given for pain with relief and xanax given for anxiousness/restlessness with relief. Pleasant/cooperative with cares. Cares from [id number] Follow up:
--- NOTE | 2016-08-25 04:58 | NUR ---
Significant Event: Pt A&Ox3. VS stable, remains on RA. Rt upper chest HD catheter d/c'd Tuesday; drsg to remain in place x72hrs. Up x1 assist w/brace, FWW & gb. Rt foot wound vac remains in place. [place] last given @ 2300. Follow up: Continue plan of care
--- NOTE | 2016-08-25 11:00 | NUR ---
Patient ready to go today but orders need signed. Called Dr Pillai - he has not been following her this stay. Spoke to Rosalind Roman-MARY she looked up and hospitalist is not on this case. Called Dr Clemons, he is at a [facility] clinic but can fax orders to him #[phone]. [phone] Faxed order and med sheets. 1120 WO just took vac off. 1150 Spoke to patient and her daughter via the phone. Made arrangements for daughter Yael to transport. [facility]'s van is busy this afternoon. Yael will be here at 1530. Patient informed, charge nurse Rosalind, nurse to nurse number given to Rachel from [facility] updated. [phone] Faxed orders to [facility].
--- NOTE | 2016-08-25 15:36 | NUR ---
Is A/O.Very pleasant.Rt.foot wound vac dc'd today.Has wet drsg changes ordered now.Is up with walker & 1-2 assists.Rt.upper chest drsg D/I where dialysis cath removed yesterday.Can remove drsg 3 days after removal on .Also can shower then.Had norco at 0730 for discomfort in Lt.leg.Is on accuchecks.Eating & drinking well.Voiding ok.Had a stool yesterday.Very pleasant.
--- NOTE | 2016-08-25 15:45 | NUR ---
DISMISSED PER W/C TO [facility] [employer].BY [employer]OM[facility] & DAUGHTER FOR DAUGHTER TO TRANSFER PT. BACK TO ASSISTED.TRANSFER PAPERS WERE SENT WITH DAUGHTER.NURSE TO NURSE REPORT WAS GIVEN TO GUZMAN(NURSE AT ASSISTED UPON PT.DISMISSAL).
== END 2016-08-25 15:46 | DRG 493 ==
LOC: GSDC 10:18 → GMSU 10:18 → GSDC 12:00 → GMSU 16:18 → GSDC 16:19 → GMSU 16:19
PROVIDERS: ADMIT Orthopaedic Surgery
PROC: 0L8N3ZZ Division of Right Lower Leg Tendon, Percutaneous Approach (ICD-10-PCS; principal; 2016-08-13)
PROC: 0SPF04Z Removal of Internal Fixation Device from Right Ankle Joint, Open Approach (ICD-10-PCS; principal; 2016-08-13)
PROC: 05PYX3Z Removal of Infusion Device from Upper Vein, External Approach (ICD-10-PCS; 2016-08-24)
DX: T84.624A Infection and inflammatory reaction due to internal fixation device of right fibula, initial encounter (principal); N17.9 Acute kidney failure, unspecified; E11.22 Type 2 diabetes mellitus with diabetic chronic kidney disease; E11.65 Type 2 diabetes mellitus with hyperglycemia; I12.9 Hypertensive chronic kidney disease with stage 1 through stage 4 chronic kidney disease, or unspecified chronic kidney disease; T81.32XD Disruption of internal operation (surgical) wound, not elsewhere classified, subsequent encounter; M67.01 Short Achilles tendon (acquired), right ankle; N18.3 Chronic kidney disease, stage 3 (moderate); I25.10 Atherosclerotic heart disease of native coronary artery without angina pectoris; I35.0 Nonrheumatic aortic (valve) stenosis; E03.9 Hypothyroidism, unspecified; L89.612 Pressure ulcer of right heel, stage 2; B95.7 Other staphylococcus as the cause of diseases classified elsewhere; Y83.8 Other surgical procedures as the cause of abnormal reaction of the patient, or of later complication, without mention of misadventure at the time of the procedure; H40.9 Unspecified glaucoma; H54.8 Legal blindness, as defined in USA; E78.5 Hyperlipidemia, unspecified; M19.90 Unspecified osteoarthritis, unspecified site; H35.3190 Nonexudative age-related macular degeneration, unspecified eye, stage unspecified; Z79.4 Long term (current) use of insulin; Z85.828 Personal history of other malignant neoplasm of skin; Z79.82 Long term (current) use of aspirin; Z79.899 Other long term (current) drug therapy; M62.838 Other muscle spasm
CPT/HCPCS: A9270; J0690; J2001; J2250; J7030; Q0162

== ENCOUNTER 2016-09-23 18:20 | Inpatient (IN) | payer MEDICARE, BC, MEDICAID ==
[~2016-09-23] VITALS: Ht 152.4 cm; Wt 43.0 kg
--- NOTE | ~2016-09-23 | CON ---
PATIENT'S NAME: PORTIA FRY [facility] AGE: 80 Y [address] ROOM: [id number] [place], [place] [address] LOCATION: [facility] ADMIT DATE: 09/23/2016 Consultation DISCHARGE DATE: FAMILY PHYSICIAN: CAROLYN NOGUERA MD ATTENDING PHYSICIAN: BEIN ZAYAS V HISTORY OF PRESENT ILLNESS: I saw this 80-year-old lady in the hospital today. She was admitted last night primarily because she was complaining of neck pain. There was no history of a fall. 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 On this occasion, as indicated, she did not have any fall, and when she was investigated because she was having neck pain and headache, a CT scan of the cervical spine was done especially from the history that she had given. The CT scan of the cervical spine shows a fracture of the anterior as well as the posterior arch of C1 on the right side. In addition, there was some fracture of the upper portion of the odontoid process. There was no malalignment and there was a slight displacement of the posterior arch fracture. She denied any history of fall, and since she had been in the [place] J collar, she has felt more comfortable. Her headache seems to have subsided. She denies any weakness in the upper or lower extremities. She denies any numbness or tingling in the upper or lower extremities. Another finding at the time of admission was that she had a high INR in the emergency room of 10.8 and she was going to be worked up for that also. PAST MEDICAL HISTORY: She has had an anterior cervical fusion at C4-C5 secondary to previous fracture as noted above.She has history of parotid tumor. She has had a fracture of the right ankle, which was instrumented and unfortunately developed infection, requiring the removal of the hardware. She suffers from GERD. She is hypertensive. She is an insulin-dependent diabetic. MEDICATIONS: See the list in the chart. FAMILY HISTORY: Noncontributory. SOCIAL HISTORY: She does not smoke. Does not drink alcohol. PHYSICAL EXAMINATION: GENERAL: On examination in the hospital today, she is a 80-year-old lady who was awake, alert, did not appear to be in any acute distress. VITAL SIGNS: Blood pressure was 117/59; pulse was 50, was regular; PATIENT'S NAME: PORTIA FRY [facility] AGE: 80 Y [address] ROOM: [id number] [place], [place] [address] LOCATION: [facility] ADMIT DATE: 09/23/2016 Consultation DISCHARGE DATE: FAMILY PHYSICIAN: CAROLYN NOGUERA MD ATTENDING PHYSICIAN: BENI ZAYAS V respirations were 16; and temperature was 97.7. HEENT: She was normocephalic except for some asymmetry of the face and slight weakness of the left side. NECK: Neck was placed in a cervical collar, an [place] collar. CHEST: Clear. HEART: Heart rate was regular. Heart sounds were normal. ABDOMEN: Soft. No area of tenderness. NEUROLOGIC: The cranial nerve examination was normal except for the facial asymmetry. The motor examination was normal. The sensory exam was normal except for the right leg and foot primarily because of the wrapping and treating the infected right ankle. Reflexes were normal except for the right ankle jerk that I did not try and the toes were downgoing on the left side. IMAGING: I reviewed the CT scan of the cervical spine and the fractures as noted in the history. RECOMMENDATIONS: At this stage, the only recommendation I would give is for her to continue wearing the cervical collar, need to wear it for 3 months, and have it on all the time. This was explained to her in the clinic today, and considering the fact that she already has a collar on and she is comfortable with that, I do not see any reason why she cannot be discharged home any time. MD SAVITA CORLEY/marques /[id number] d: 09/25/16 0223 t: 10/22/16 1238, CONSULTATION REPORT
--- NOTE | ~2016-09-23 | HP ---
PATIENT'S NAME: PORTIA FRY [facility] AGE: 80 Y [address] ROOM: [place] [address] LOCATION: [facility] ADMIT DATE: 09/23/2016 History & Physical DISCHARGE DATE: FAMILY PHYSICIAN: CAROLYN NOGUERA MD ATTENDING PHYSICIAN: BENI ZAYAS V DATE OF SERVICE: CHIEF COMPLAINT: Neck pain. HISTORY OF PRESENT ILLNESS: The patient is a 80-year-old female with multiple medical problems, resident of a alf facility, who is being sent in due to a supratherapeutic INR and approximately 2 to 3 weeks of neck pain. On the workup in the ER, the patient was found to have an INR of 10.8 as well as an acute fracture of the anterior and posterior arch of C1, also transverse fracture across the tip of the odontoid with slight bone displacement. The patient does have a prior history of interbody fusion for C4-C5 flexion distraction injury. Supposedly, the patient has had cervical spine fractures in the past due to radiation that she received for a parotid tumor. At this point, she reports that her neck pain feels slightly better in a [place] J collar. She does not endorse any shortness of breath, nausea, vomiting, chest pain, or palpitations. REVIEW OF SYSTEMS: All systems have been reviewed and are negative aside from pertinent positives mentioned above. PAST MEDICAL HISTORY: 1. Right upper extremity DVT due to a recent hemodialysis catheter, currently on Coumadin. 2. CKD, status post biopsy, unclear etiology. Presumed stage IV. 3. Insulin-dependent diabetes. 4. History of parotid tumor. 5. History of right ankle fracture with instrumentation and subsequent infection of the hardware requiring reoperation. The patient has recently completed antibiotics. 6. GERD. 7. Parotid tumor. 8. Essential hypertension. CURRENT MEDICATIONS: PATIENT'S NAME: ANG [facility] AGE: 80 Y [address] ROOM: [place] [address] LOCATION: [facility] ADMIT DATE: 09/23/2016 History & Physical DISCHARGE DATE: FAMILY PHYSICIAN: CAROLYN NOGUERA MD ATTENDING PHYSICIAN: BENI ZAYAS V 1. Seroquel. 2. Theragran. 3. Vitamin B12. 4. Zofran. 5. Tylenol. 6. Lasix. 7. Ultram. 8. Lexapro. 9. Lipitor. 10. Melatonin. 11. Nitroglycerin. 12. Norvasc. 13. NovoLog sliding scale. 14. Pepcid. 15. Calcitriol. 16. Aspirin. 17. Calcium carbonate. 18. Clonidine. 19. Colace. 20. Coreg. 21. Fenofibrate. 22. Florastor. 23. Hydralazine. 24. Levothyroxine. FAMILY HISTORY: Reviewed and is noncontributory due to known underlying etiology for her presentation. SOCIAL HISTORY: Negative for any history or ongoing toxic habits. The patient currently resides in a alf facility. PHYSICAL EXAMINATION: VITAL SIGNS: Temperature 98.0, pulse is 70, respirations are 13, blood pressure 107/62, and saturating 96% on room air. GENERAL: Appears elderly and extremely frail female, in no acute distress. Alert and oriented x3 and quite appropriate. NEUROLOGIC: Grossly nonfocal. HEENT: Eyes exam shows pupils are equal and reactive to light. LYMPHATIC: Shows no cervical lymphadenopathy. ENDOCRINE: Cannot be done due to a Tetlin J collar. LUNGS: Clear to auscultation. HEART: Regular rate and rhythm. ABDOMEN: Soft, nontender, nondistended. PATIENT'S NAME: PORTIA FRY [facility] AGE: 80 Y [address] ROOM: [id number] [place] [id number] LOCATION: [facility] ADMIT DATE: 09/23/2016 History & Physical DISCHARGE DATE: FAMILY PHYSICIAN: CAROLYN NOGUERA MD ATTENDING PHYSICIAN: BENI ZAYAS V : No costovertebral angle tenderness. VASCULAR: 2+ pedal pulses of the left extremity. Right extremity is bandaged. PSYCHIATRIC: Appropriate mood, cognition, and affect. SKIN: Warm and dry. LABORATORY DATA: Studies from the ER are significant for an INR of 10.8. Creatinine of 2.0, which appears to be her current baseline are not far from there off. Hemoglobin 9.2, which also appears to be her baseline. CAT scan as above. ASSESSMENT AND PLAN: This is a 80-year-old female, who will be admitted for newly diagnosed C1 fracture. The patient has been placed in a [place] J and we are awaiting neurosurgical consultation. Individual other problems to be addressed. 1. Supratherapeutic INR. The patient has recently received 2.5 mg of vitamin K. She does not appear to be hemorrhaging and we will recheck her INR tomorrow morning. We will correct as needed. 2. Chronic kidney disease. This appears to be at baseline. We will continue her on her calcitriol. 3. Essential hypertension. We will continue the patient on her current antihypertensive regimen. 4. Long-term use of anticoagulants due to deep vein thrombosis. If the patient requires surgical intervention for her C1 fracture, we will reverse her INR completely. 5. Osteomyelitis of right ankle instrumentation, it appears the patient has completed antibiotics and at this point, does not require additional interventions. 6. Additional management will depend on clinical course. Time dedicated to this patient encounter's is 35 minutes. MD IVANA WOODSON/marques /[id number] D: [id number] T: [id number] HISTORY & PHYSICAL
--- NOTE | ~2016-09-23 | DS ---
PATIENT'S NAME: ANG [facility] AGE: 80 Y [address] ROOM: [id number] [address] LOCATION: [facility] ADMIT DATE: 09/23/2016 Discharge Summary DISCHARGE DATE: 09/28/2016 FAMILY PHYSICIAN: Compa Pillai MD ATTENDING PHYSICIAN: Vasu Ojeda V ADMITTING DIAGNOSIS: C1 fracture. DISCHARGE DIAGNOSIS: C1 fracture, no surgery, on C-collar. SECONDARY DIAGNOSES: 1. Supratherapeutic INR. 2. Diabetes mellitus type 2. 3. Severe protein-calorie malnutrition. 4. Parotid gland cancer. 5. Chronic kidney disease stage 3. 6. Hypertension. 7. Hypothyroidism. CONSULTATION: Neurosurgery. HISTORY OF PRESENT ILLNESS: The patient is a 80-year-old female with multiple medical problems, resident of [facility] facility who presented here due to supratherapeutic INR and approximately 2 to 3 weeks of neck pain. On the workup in the ER, the patient was found to have INR of 10.8 as well as acute fracture of the anterior and posterior arc of C1, also transverse fracture across the tip of the odontoid with slight bone displacement. The patient does have a prior history of interbody fusion of C4-C5 flexion distraction injury. Supposedly, the patient has cervical spine fracture in the past due to radiation that is received for a parotid tumor. At this point of the time on initial inspection, the patient reports that her neck pain felt better while on [place] J collar. HOSPITAL COURSE: The patient was given vitamin K with improvement of INR. There were no signs of bleeding. The patient was seen by Dr. Oquendo from our Neurosurgery Department. There was no need for surgical intervention due to patient's age and brittle bone. The patient was told to continue wearing her C-collar for 3 months and to follow up with Dr. Oquendo. The patient's INR improved. The patient was restarted back on low dose of Coumadin. The patient was seen by Physical Therapy, Occupation Therapy, and Speech Therapy. The patient had a swallow eval and was told to have nectar thick with soft mechanical diet with crushed meds and applesauce. During stay, the patient was stable. The patient [facility] a [facility] condition. PATIENT'S NAME: ANG [facility] AGE: 80 Y [address] ROOM: [id number] [place] [id number] LOCATION: [facility] ADMIT DATE: 09/23/2016 Discharge Summary DISCHARGE DATE: 09/28/2016 FAMILY PHYSICIAN: Compa Pillai MD ATTENDING PHYSICIAN: Vasu Ojeda V CONDITION: Stable. DISPOSITION: Home. DISCHARGE MEDICATIONS: Please see MAR. DISCHARGE INSTRUCTION: To wear C-collar for 3 months every time and to follow up with Dr. Oquendo. Also to check INR on 09/29/2016 and to continue to check INR every 3 days until changed by house physician. FOLLOWUP: Follow up with the house physician at the [facility] and Dr. Oquendo. PHYSICAL EXAMINATION: VITAL SIGNS: Temperature 97.9, blood pressure 155/70, heart rate of 59, respiratory rate of 14. GENERAL APPEARANCE: The patient is alert and awake, sitting on the chair, wearing a C-collar. Eating breakfast. HEART: Regular rate and rhythm. CHEST: Clear to auscultation bilaterally. NECK: The patient wearing a C-collar. WOOL CLASSER: The patient is alert and awake, moves all extremities. ABDOMEN: Soft, nontender, and nondistended. Bowel sounds present. Greater than 30 minutes was spent on discharge planning. MD CRISTIN DYSON/marques /[id number] d: 09/29/16 0238 t: 10/05/16 0614, DISCHARGE SUMMARY
--- NOTE | ~2016-09-23 | ER ---
PATIENT'S NAME: PORTIA SAVAGE [facility] AGE: 80 Y [address] ROOM: [place] [address] LOCATION: [facility] ADMIT DATE: 09/23/2016 ER/Outpatient Report DISCHARGE DATE: FAMILY PHYSICIAN: CAROLYN PILLAI MD ATTENDING PHYSICIAN: BENI ZAYAS V CHIEF COMPLAINT: Neck pain and headache. HISTORY OF PRESENT ILLNESS: Ms Savage has had headache and neck pain for the last 1-3 weeks. She has been following with her primary care provider, Dr. Pillai, for same. She also has had significant difficulty controlling supratherapeutic INR and has not had warfarin in several days, and in fact, got a dose of vitamin K recently. She may have had some epistaxis associated with this. The pain in her neck is mostly on the left side and does radiate up into the back of her head. It is an aching pain. She does have nausea and vomiting with this. She denies any falls. About 2 years ago, she had some spontaneous neck fractures treated by Dr. Cash. She denies any other issues at this time. Family thinks she may have lost several pounds recently. PAST MEDICAL HISTORY: Documented on the record and reviewed by me. SOCIAL HISTORY: Documented on the record and reviewed by me. MEDICATIONS: Documented on the record and reviewed by me. ALLERGIES: DOCUMENTED ON THE RECORD AND REVIEWED BY ME. REVIEW OF SYSTEMS: All systems are reviewed and negative except as noted in the HPI. PHYSICAL EXAMINATION: VITAL SIGNS: Blood pressure 150/69, pulse 60, respiratory rate 16, temperature 98.8, SpO2 is 100% on room air, pain is rated at 10/10. GENERAL: Age-appropriate female, sitting upright on the exam table in no obvious pain, no real distress, but comfortable. NEUROLOGIC: Awake and alert. GCS appears to be 14, slightly confused, but follows commands in all extremities. Eyes are open spontaneously. She has slight speech deficit, but it is intelligible. HEENT: Normocephalic, atraumatic. The eyes are PERRL. The oropharynx is PATIENT'S NAME: PORTIA SAVAGE [facility] AGE: 80 Y [address] ROOM: [place] [address] LOCATION: [facility] ADMIT DATE: 09/23/2016 ER/Outpatient Report DISCHARGE DATE: FAMILY PHYSICIAN: CAROLYN PILLAI MD ATTENDING PHYSICIAN: BENI ZAYAS V grossly clear. NECK: Notable for some tenderness over the right anterolateral aspects and posteriorly with minimal C-spine tenderness. Active and passive range of motion were not tested. CHEST: The chest wall is nontender to palpation. HEART: Regular rate and rhythm with no murmurs. LUNGS: Clear to auscultation bilateral grossly. ABDOMEN: Benign to inspection and palpation. BACK: Inspected and grossly unremarkable otherwise. EXTREMITIES: The upper extremities grossly reveals symmetric strength. Warm and well perfused. Grossly frail. SKIN: Appears to be grossly intact. LABORATORY DATA AND X-RAYS: INR is markedly elevated at 10.79. PT is 116.1, PTT is 67. Blood type is A positive. CMS with a potassium of 3.1. No electrolyte abnormalities otherwise. BUN is 48, creatinine is 2.0, GFR is 23, AST is 57. Renal function appears near baseline. CBC: White count is 4.5, hemoglobin is 9.2 and stable, and platelets of 314. Review of CT scan from earlier today is notable for what appears to be acute fracture of the right lateral mass of C1 with mild lateral displacement. IMPRESSION: 1. C1 fracture acute. 2. Supratherapeutic INR, poorly controlled. EMERGENCY DEPARTMENT COURSE: The patient was seen and evaluated as above. CT scan was reviewed upon immediate review of that scan. The patient was placed in a C-collar. Labs were obtained. Not a surgical candidate at this time immediately. Dr. Oquendo was then disposed in another case and was unable to see the patient in the emergency department. She was placed in a Eagle-J collar. She will be admitted to the Hospitalist Service for the [id number] INRs and further evaluation of this C1 fracture. Dr. Zayas will admit her for same. The patient did not require any pain or symptom management while in the ER. She was feeling better after the collar was placed. Again, no evidence of trauma that would cause this that we are aware of. I discussed the case with Dr. Gonzalez, on-call provider, for Dr. Pilali, the patient's primary care provider. They have discussed the case and would prefer the hospitalist to admit. PATIENT'S NAME: PORTIA SAVAGE [facility] AGE: 80 Y [address] ROOM: [address] [place], [place] [address] LOCATION: [facility] ADMIT DATE: 09/23/2016 ER/Outpatient Report DISCHARGE DATE: FAMILY PHYSICIAN: CAROLYN PILLAI MD ATTENDING PHYSICIAN: BENI ZAYAS V MD FORREST DOSHI/rayl /[id number] d: 09/24/16 0734 t: 09/28/16 1233, OUTPATIENT REPORT
[~2016-09-23 18:20] MED LIST changes: -ALOE VESTA226 GM TOP; -LASIX40 MG PO; -ULTRAM50 MG PO
[2016-09-23 19:49] LABS: BASOPHIL % 0.7 %; EOSINOPHIL % 0.4 %; HEMOGLOBIN 9.2 g/dL (10.0-15.0); IMMATURE GRANULOCYTE % 0.2 %; LYMPHOCYTE # 0.6 K/uL (0.8-4.0); LYMPHOCYTE % 14.2 %; MCH 28.7 pg (27.0-34.0); MCHC 35.4 gm/dL (32.0-36.5); MONOCYTE # 0.6 K/uL (0.0-1.0); MONOCYTE % 13.3 %; MPV 10.5 fl (9.4-12.4); NEUTROPHIL # (ANC) 3.2 K/uL (1.8-7.8); NEUTROPHIL % 71.2 %; NRBC % 0 /100WBC (0-0.00); PLATELET COUNT 314 K/uL (150-450); RBC 3.21 M/uL (3.50-5.50); RDW-CV 16.7 % (11.9-14.6); WBC 4.5 K/uL (4.0-11.0)
[2016-09-23 20:06] LABS: PROTIME 116.1 SECONDS (9.8-11.4)
[2016-09-23 20:07] LABS: PTT 67 SECONDS (25-32)
[2016-09-23 20:08] LABS: ALBUMIN 2.6 gm/dL (3.5-5.0); ANION GAP 12.1 (10.0-19.0); CALCIUM 8.7 mg/dL (8.5-10.5); POTASSIUM 3.1 mMol/L (3.7-5.1); TOTAL PROTEIN 6.5 g/dL (6.0-8.4)
[2016-09-23 20:11] LABS: INR - (THERAPEUTIC) 10.79 (0.92-1.07)
[2016-09-23 20:12] LABS: TOTAL BILIRUBIN 0.4 mg/dL (0.0-1.5)
[2016-09-23] MEDS ORDERED: LASIX40 MG PO (22:51)
[2016-09-23] MEDS ORDERED: ULTRAM50 MG PO (22:53)
[2016-09-23] MEDS ORDERED: ALOE VESTA226 GM TOP (22:57)
--- NOTE | 2016-09-24 01:55 | NUR ---
Admitted to floor at 2210. Arrived in wheelchair and with daughter. Patient is from [facility] and admitted from ER due to neck pain. Acute C1 fracture and has aspen neck collar upon arrival to floor. 10.7 INR on admission and received Vit K today. Stage III kidney disease, diabetes, DVT in right arm, and previous cancer history. DNR.
--- NOTE | 2016-09-24 04:53 | NUR ---
Significant Event: Arrived to floor at 2210 from ER. Patient had significant neck pain and went to the hospital. Patient has C1 fracture and elevated INR above 10. Alert and oriented x3 and follows commands. Transfers 1A to wheelchair and to bed. Patient has been taking Coumadin in the past week for DVT in right arm and most recent INR 10.7. Open wound to right ankle with gauze and kerlix. [place] collar intact upon arrival and has denied pain throughout evening. Did receive Tramadol and Tylenol yesterday. Stage 3 chronic kidney disease. ACHS accuchecks Follow up:
[2016-09-24 05:19] LABS: ANION GAP 10.8 (10.0-19.0); CALCIUM 8.7 mg/dL (8.5-10.5); CREATININE 1.8 mg/dL (0.5-1.1)
[2016-09-24 05:20] LABS: POTASSIUM 2.8 mMol/L (3.7-5.1)
[2016-09-24 05:21] LABS: INR - (THERAPEUTIC) 4.81 (0.92-1.07); PROTIME 51.3 SECONDS (9.8-11.4)
--- NOTE | 2016-09-24 11:05 | NUR ---
1100 Reviewed Neymar' chart. She was sleeping and no family was in the room at the time of my attempted visit. In reviewing her information, it appears that she lives at [facility] and it is my guess she will return there when able to do so. We are currently waiting on to round on Rosemary to see if surgery is going to be needed or what the plan of attack will be. Plan will be for her to be here for a few days and then return back to SNF when able to do so. CM to continue to follow and assist.
--- NOTE | 2016-09-24 13:45 | NUR ---
Significant Event: PT ALERT AND ORIENTED X3. PERRLA. EQUAL, MODERATE STRENGTH X4. C-COLLAR INTACT; TO BE ON AT ALL TIMES. BRADYCARDIA WITH RATES IN THE 50'S-60'S. ON ROOM AIR; OTHER VITAL SIGNS STABLE. TRANSFERS WITH 2-ASSIST/GAIT BELT/WALKER. UP TO COMMODE. HAS SEVERAL FORMED BM'S THIS SHIFT. PRN SUPPOSITORY GIVEN PER PT'S REQUEST THIS AM. SCHEDULED STOOL SOFTENER ALSO GIVEN WITH MORNING MEDICATIONS. WO NURSE SAW THE PT REGARDING R)ANKLE AND CHANGED THE DRESSING THIS MORNING. IV TO L)FA SALINE LOCKED. POOR APPETITE. PRN TRAMADOL GIVEN AT 1026 FOR COMPLAINTS OF NECK PAIN, WITH RELIEF. *PT HAS A R)ARM DVT-LIMB ALERT ON* SCHEDULED NITROGLYCERIN PATCH APPLIED TO R)UPPER ARM; TO BE REMOVED TONIGHT AT BEDTIME. Follow up: BID ACCUCHECKS, MONITOR PAIN, TO SEE PT TODAY REGARDING C1 FRACTURE (HE IS AWARE OF THE CONSULT)
--- NOTE | 2016-09-25 04:30 | NUR ---
Significant Event: PATIENT A/OX3. DENIES N/T. MODERATE, EQUAL STRENGTH. PUPILS 2.0 AND BRISK. ASPEN C COLLAR ON AT ALL TIMES. SLURRED SPEECH AND FACIAL DROP NORMAL FOR PATIENT. LUNGS CLEAR AND DIMINISHED ON ROOM AIR. AFEBRILE. SBP IN 100S-150S. HEART RATES IN 50S. IV TO LEFT FOREARM SALINE LOCKED. DRESSING TO RIGHT ANKLE CHANGED - WET TO DRY, GAUZE, KERILEX, TAPE. COCCYX RED - MOISTURE BARRIER APPLIED. RIGHT ARM IN LIMB ALERT FOR DVT. RENAL DIET WITH MECHANICAL SOFT LIQUIDS. TAKES MEDS WHOLE IN PUDDING. UP 2 ASSIST PIVOT TO COMMODE AND CHAIR. NO CPMLAINTS OF PAIN. RIGHT FOOT BOOT DROP INTACT. PERSONAL SHOES/BRACE TO USE WHEN GETTINGS UP. WHEN GETTINGS UP. Follow up: [facility] TUESDAY.
[2016-09-25 06:44] LABS: ALBUMIN 2.5 gm/dL (3.5-5.0); CALCIUM 8.8 mg/dL (8.5-10.5); CREATININE 1.9 mg/dL (0.5-1.1); PHOSPHORUS 2.4 mg/dL (2.5-4.9); POTASSIUM 3.2 mMol/L (3.7-5.1)
[2016-09-25 06:46] LABS: ANION GAP 9.2 (10.0-19.0)
[2016-09-25 07:00] LABS: INR - (THERAPEUTIC) 1.59 (0.92-1.07); PROTIME 16.8 SECONDS (9.8-11.4)
--- NOTE | 2016-09-25 16:54 | NUR ---
Significant Event: a/o x 3. minimal/tolerable pain to neck. denies numbness/ tingling. does have slurred speech and facial droop baseline. equal strength throughout. [place] collar on at all times. Tele- sinus ksenia. room air. voids per BSC. BID dsg changes to left ankle- wet to dry, wound is red/moist. Peripheral IV saline locked. ambulates with walker/gait belt and one assist. Takes meds whole. Renal/mechanical soft diet. Accuchecks BID. Plan for MBS Tuesday and return to [facility]. Heparin and coumadin started today- INR 1.59. wears foot drop boot in bed/up in chair to right foot and shoe with AFO when ambulating.
--- NOTE | 2016-09-26 03:56 | NUR ---
Significant Event: A/OX3. DENIES N/T. MODERATE, EQUAL STRENGTH. [place]IST[place] COLLAR ON AT ALL TIMES. PUPILS 2.0 AND BRISK. DENIES PAIN. WOUND TO RIGHT ANKLE, BID DRESSING CHANGES. DRESSING C/D/I. UP 2 ASSIST GAIT BELT. BRACE TO RIGHT LEG AND SHOES ON WHEN UP. AFEBRILE. SBP IN 110S-140S. HEART RATES 50S-60S. LUNGS CLEAR ON ROOM AIR. MECHANICAL SOFT DIET. MBS TUESDAY. ACCU CHECKS BID. IV TO LEFT FOREARM SALINE LOCKED. STARTED ON HEPARIN YESTERDAY. DVT TO RIGHT ARM - LIMB ALERT ON. RESTARTED COUMADIN. Follow up:BACK TO [facility] WHEN READY.
[2016-09-26 05:44] LABS: INR - (THERAPEUTIC) 1.48 (0.92-1.07); PROTIME 15.6 SECONDS (9.8-11.4)
--- NOTE | 2016-09-26 14:07 | NUR ---
Significant Event: a/o x 3. denies pain. no N/T. Equal strength throughout. Does have vista collar on at all times. tele- sinus ksenia with PVCs. DSG changed to wound to right lateral ankle with scant amount of yellow drainage on old dsg. Foot drop boot to right leg when in chair/in bed. AFO and shoe to right leg with ambulating. Peripheral IV saline locked. Accuchecks BID. Patient lives at SNF. Discharge plan- [facility] tomorrow and return to SNF when ready. Takes meds whole. Renal/mechanical soft diet.
--- NOTE | 2016-09-27 03:51 | NUR ---
Significant Event: A/Ox3. Denies n/t. Moderate, equal strength. [place] collar on at all times. Patient has her own shoes and right ankle brace when up. Up 2 assist. Wears right foot drop boot when in bed/chair. Wound to right ankle; BID dressing changes. Wet to dry dressing - gauze and kerlex. Lungs clear on room air. Bradycardic in 50s-60s. SBP 100s-120s. Afebrile. Renal diet -mechanical soft. MBS today. IV to left forearm saline locked. BID accuchecks. Follow up:MBS today. Possibly home to [facility] this afternoon.
[2016-09-27 05:28] LABS: INR - (THERAPEUTIC) 1.5 (0.92-1.07); PROTIME 15.8 SECONDS (9.8-11.4)
--- NOTE | 2016-09-27 13:06 | NUR ---
0940 Update from nursing that they think that Rosemary could go back to SNF after her MBS this morning. I phoned over to [facility], left a VM with Alexandra asking to phone me back in reference to tkaing Rosemary back today. Faxed an update over to [facility] for nursing staff and staff to review as well. 1010 VM from [facility] stating that they can't take Rosemary back today due to already taking an admission. They would be able to take her back on Tuesday. 1015 Call back, talked with Alexandra, she says that they can come and seed cone picker Rosemary at 1130 tomorrow. [facility] van will be here to pick her up at that time. Packet started, orders printed, ID Screen not needed as she is a return admission. I stopped in and talked with Rosemary, introduced self and CM role to her. I am familiar with her from previous admission. Let her know that [facility] could take here back tomorrow. She was in agreement with this plan. She tells me that her daughter will be up this afternoon and she will update her to the plan. Also updated the board in her room to her dismissal plans for any further family or nursing staff that might have questions. RN to RN number and all dismissal plans were left on a sticky note on the front of the chart for any other questions. CM to continue to follow and assist. Plan return back to [facility] Thursday 09/28 at 1130 via [facility] van.
--- NOTE | 2016-09-27 14:18 | NUR ---
Significant Event: A/O x3. PERRLA. Follows commands. Moves everything spontaneously. Denies N/T. Denies vision issues. Chronic slurred speech. Headache with tylenol given this shift. Bradycardic. VSS. Afebrile. No edema noted. [place] collar on at all times. Coccyx red. Aloe vesta applied liberally. R) ankle wound. L) FA PIV SLL. 1 assist with gaitbelt and walker. Accuchecks BID. MBS this shift. Renal mechanical soft diet with nectar thick fluids. Patient pleasant and cooperative with cares. Follow up: [facility] tomorrow
--- NOTE | 2016-09-28 02:26 | NUR ---
Significant Event: A/Ox3. Bradycardia and other VSS on room air. Ambulates 1 assist and wears vista collar. Wears right ankle brace during the day and foot drop boot at night. Wet to dry dressing change to right ankle BID. Cream applied to coccyx multiple times (very red) and assisted patient to lay on side with frequent repositioning. After MBS yesterday patient is now on nectar thick liquids with renal mechanical soft diet. BID acucchecks. IV to left forearm. Follow up: Return to [facility] today
[2016-09-28 05:52] LABS: INR - (THERAPEUTIC) 1.71 (0.92-1.07)
--- NOTE | 2016-09-28 10:15 | NUR ---
Dismissal orders were completed and faxed over to [facility] prior to Rosemary leaving. RN to RN was done by ABDIRAHMAN Wolf before she left. [place] van to be here at 1130 to greens picker. CM to continue to follow and assist.
--- NOTE | 2016-09-28 13:04 | NUR ---
[facility] at [facility]. IV and monitor discontinued prior to discharge.
== END 2016-09-28 12:20 | DRG 552 ==
LOC: GMED 18:20 → GICU 20:44 → GNTU 20:44 → GICU 21:03
PROVIDERS: Emergency Medicine; Internal Medicine; Physician Assistant; ADMIT Internal Medicine
DX: S12.000A Unspecified displaced fracture of first cervical vertebra, initial encounter for closed fracture (principal); E44.0 Moderate protein-calorie malnutrition; E11.22 Type 2 diabetes mellitus with diabetic chronic kidney disease; S12.100A Unspecified displaced fracture of second cervical vertebra, initial encounter for closed fracture; Z66 Do not resuscitate; K21.9 Gastro-esophageal reflux disease without esophagitis; R79.1 Abnormal coagulation profile; Z79.01 Long term (current) use of anticoagulants; Z86.718 Personal history of other venous thrombosis and embolism; I12.9 Hypertensive chronic kidney disease with stage 1 through stage 4 chronic kidney disease, or unspecified chronic kidney disease; N18.3 Chronic kidney disease, stage 3 (moderate); Z79.4 Long term (current) use of insulin
CPT/HCPCS: A9270; J1644; J3480; J7050

== ENCOUNTER → 2016-09-23 | Outpatient (CLI) | payer OTHER, MEDICARE, BC, MEDICAID ==
[~2016-09-23] MED LIST changes: +ALOE VESTA226 GM TOP; +LASIX40 MG PO; +ULTRAM50 MG PO
[2016-09-23 09:49] LABS: PROTIME 103.9 SECONDS (9.8-11.4)
[2016-09-23 10:04] LABS: INR - (THERAPEUTIC) 9.67 (0.92-1.07)
== END ==
LOC: LHULL 09:12
PROVIDERS: Family Medicine
DX: Z13.89 Encounter for screening for other disorder (principal); Z79.01 Long term (current) use of anticoagulants

== ENCOUNTER 2016-10-16 14:33 | Emergency (ER) | payer MEDICARE, BC, MEDICAID ==
--- NOTE | ~2016-10-16 | ER ---
PATIENT'S NAME: PORTIA FRY [facility] AGE: 81 Y [address] ROOM: [place] [address] LOCATION: [facility] ADMIT DATE: 10/16/2016 ER/Outpatient Report DISCHARGE DATE: 10/16/2016 FAMILY PHYSICIAN: Compa Pillai MD ATTENDING PHYSICIAN: Estephania Perry ARRIVAL TIME: 1433 hours. ENCOUNTER TIME: 1440 hours. SUBJECTIVE CHIEF COMPLAINT: Shortness of breath. HISTORY OF PRESENT ILLNESS: The patient is a pleasant and well-appearing 81-year-old female complaining of shortness of breath. She arrived to the emergency department via EMS transport from [facility]. According to the staff, the patient began having shortness of breath with an oxygen saturation of 76% on room air approximately 20-30 minutes prior to EMS arrival. She was given 0.25 mg of Xanax approximately 10 minutes prior to EMS arrival with her pertinent history of anxiety. The patient was placed on the monitor and moved to the bed on arrival to the ER. She is stable at this time. Oxygen saturation on room air at 96-97% on room air. No accessary muscle use. The patient denies any chest pain. The patient has a long past medical history, and was recently discharged from the hospital about 3 weeks ago with a C1 cervical fracture, currently being followed by Dr. Oquendo. She is wearing a C-collar at this time, denies neck pain. The patient's secondary diagnoses from prior visit include supratherapeutic INR, diabetes mellitus type 2, severe protein-calorie malnutrition, parotid gland cancer, chronic kidney disease stage 3, hypertension, and hypothyroidism. The patient's regular physician is Dr. Compa Pillai, and he will be leaving the community on the of this month, with the patient's new primary care provider being transferred to Dr. Brittani Drummond. PERTINENT REVIEW OF SYSTEMS: All systems reviewed by me and negative unless otherwise stated above in the HPI. PAST MEDICAL HISTORY: As noted above and on the nursing intake form. PAST SURGICAL HISTORY: As noted on the patient's nursing intake form. PATIENT'S NAME: PORTIA FRY [facility] AGE: 81 Y [address] ROOM: [place] [address] LOCATION: [facility] ADMIT DATE: 10/16/2016 ER/Outpatient Report DISCHARGE DATE: 10/16/2016 FAMILY PHYSICIAN: Compa Pillai MD ATTENDING PHYSICIAN: Estephania Perry MEDICATIONS: Refer to MAR. ALLERGIES: REFER TO MAR. SOCIAL HISTORY: The patient is DNR status. She is a . Resident of [facility] in [place]. The patient denies smoking history. OBJECTIVE: VITAL SIGNS: Blood pressure 153/109, pulse of 88 and regular, respirations 16 per minute, temperature 99 degrees via temporal scanner, SpO2 at 96% on room air, 0/10 for pain. GENERAL: The patient is cachectic and in no acute distress. She is a calm, alert and oriented to person, place, and time. HEENT: Head is atraumatic and normocephalic. Eyes, conjunctivae are clear bilaterally and without discharge. Pupils are PERRLA bilaterally. EOMFI bilaterally. No nystagmus. Ears showing tympanic membranes with good light reflex bilaterally. Auditory canals are patent. Nose, turbinates are pink and not swollen. No drainage. Throat with midline uvula. No exudates, erythema, or tonsillar hypertrophy. NECK: In cervical collar. Nontender. Supple. No lymphadenopathy. Trachea midline. No JVD. LUNGS: Clear to auscultation bilaterally, but bases are somewhat diminished bilaterally. No wheezes, crackles, rhonchi, or stridor. Normal respiratory effort. HEART: Regular rate and rhythm. No S3, S4, or extra sounds. EXTREMITIES: Right ankle with protective boot that was addressed at her last hospital visit 3 weeks ago. Utility [employer] strength equal and symmetric. No numbness or tingling in extremities x4. No clubbing, cyanosis, or edema. Capillary refill less than 2 seconds at the nail beds. Full range of motion at the hip and shoulder level bilaterally. +2/4 pulses at the radius and popliteal arteries bilaterally. NEURO: Cranial nerves 2 through 12 grossly intact. Strength 4/5 bilaterally in the upper and lower extremities. Symmetric. LABORATORY DATA AND X-RAYS: CBC: 3.8, red blood cell 4.61, hemoglobin 13.1, hematocrit 40.0, MCV 86.8, MCV 28.4, MCHC 32.8, RDW of 19.5, platelets 427, MPV 10.2 with auto-diff within normal limits. CMS: Sodium 137, potassium 4.4, chloride 100, CO2 of 27, anion gap 14.4, glucose 185, calcium 9.1, BUN 37, creatinine 2.7, total protein 7.9, albumin 2.9, globulin 5.0. A/G ratio 0.6. Total bilirubin 0.5, alk phos 45, AST 39, ALT 21. Estimated GFR of 16. PATIENT'S NAME: PORTIA FRY [facility] AGE: 81 Y [address] ROOM: [place] [id number] LOCATION: [facility] ADMIT DATE: 10/16/2016 ER/Outpatient Report DISCHARGE DATE: 10/16/2016 FAMILY PHYSICIAN: Compa Pillai MD ATTENDING PHYSICIAN: Estephania Perry Heart enzymes: CPK of 48, CK-MB 3.0, and troponin I less than 0.040. ProBNP of 6111. PTT of 43, pro-time 35.5, and INR of 3.34. D-dimer 0.60. EKG shows a normal sinus rhythm at 78 beats per minute. 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 Discussed EKG and comparison EKG with Dr. Perry present in the emergency department and agreed on nonacute findings on EKG. Radiology: PA and lateral chest x-ray performed showing a nonacute chest. Lungs are well expanded bilaterally. Costophrenic angles are well demarcated bilaterally. No signs of consolidation. Heart dimensions normal for the patient. All the above results were discussed with the patient. ASSESSMENT: 1. Exacerbation of congestive heart failure, acute on chronic kidney injury stage 3. 2. Dyspnea/shortness of breath. PLAN: The patient had notable elevations in both creatinine and proBNP, which is concerning for aggravation of heart failure. I feel this is the cause of her shortness of breath. Provided the patient with 0.5 mg tab of Xanax for transient anxiety as well. The patient improved dramatically, and denied any shortness of breath after the medication took place. Discussed the patient in detail with Dr. Kodak Gottlieb, who recommended a spironolactone 12.5-mg dose since the patient has already taken her daily 60-mg dose of Lasix. Hopefully by drawing some of the fluid from the body, I expect the dyspnea to improve dramatically. We will send her back to [facility], with the caveat that she should follow up with her primary doctor in the next 24-48 hours. Discussed that they should see their physician on Tuesday. The patient and family were agreeable to this plan. Encouraged them to return to the emergency department should symptoms return or sooner if worsening. I feel the 70% finding on the detention O2 saturation monitor was low in error. EMS and emergency department found the patient in excess of 94% oxygen saturation throughout care without supplemental oxygen. The patient discharged to [facility] transport in improved condition. Take all meds as prescribed. Discussed med risks, side effects, and benefits in detail with the patient. Give plenty of rest and liquids. Take Tylenol or PATIENT'S NAME: PORTIA FRY [facility] AGE: 81 Y [address] ROOM: [place] [address] LOCATION: [facility] ADMIT DATE: 10/16/2016 ER/Outpatient Report DISCHARGE DATE: 10/16/2016 FAMILY PHYSICIAN: Compa Pillai MD ATTENDING PHYSICIAN: Estephania Perry ibuprofen as directed for fever or discomfort unless allergic, asthmatic, or aspirin sensitive. Return to the emergency department or primary care provider if symptoms persist or worsen. MAIDA MALDONADO PA-C FOR ESTEPHANIA PERRY MD SMR/modl /[id number] d: 10/16/16 2301 t: 10/24/16 1648, OUTPATIENT REPORT
[2016-10-16 15:08] LABS: BASOPHIL % 0.8 %; EOSINOPHIL # 0.1 K/uL (0.0-0.5); EOSINOPHIL % 3.7 %; HEMOGLOBIN 13.1 g/dL (10.0-15.0); IMMATURE GRANULOCYTE % 0.3 %; LYMPHOCYTE # 0.8 K/uL (0.8-4.0); LYMPHOCYTE % 19.7 %; MONOCYTE # 0.5 K/uL (0.0-1.0); MONOCYTE % 12.1 %; MPV 10.2 fl (9.4-12.4); NEUTROPHIL # (ANC) 2.4 K/uL (1.8-7.8); NEUTROPHIL % 63.4 %; NRBC % 0 /100WBC (0-0.00); WBC 3.8 K/uL (4.0-11.0)
[2016-10-16 15:09] LABS: MCH 28.4 pg (27.0-34.0); MCHC 32.8 gm/dL (32.0-36.5); MCV 86.8 fl (83.0-98.0); PLATELET COUNT 427 K/uL (150-450); RBC 4.61 M/uL (3.00-5.00); RDW-CV 19.5 % (11.9-14.6)
[2016-10-16 15:16] LABS: PROTIME 35.5 SECONDS (9.8-11.4)
[2016-10-16 15:17] LABS: INR - (THERAPEUTIC) 3.34 (0.92-1.07)
[2016-10-16 15:33] LABS: ALBUMIN 2.9 gm/dL (3.5-5.0); ALK PHOS 45 IU/L (33-138); ALT 21 IU/L (12-78); ANION GAP 14.4 (10.0-19.0); AST 39 IU/L (10-40); BLOOD UREA NITROGEN 37 mg/dL (6-24); CALCIUM 9.1 mg/dL (8.5-10.5); CHLORIDE 100 mMol/L (96-110); CO2 27 mMol/L (22-32); CPK 48 IU/L (21-215); CREATININE 2.7 mg/dL (0.5-1.1); POTASSIUM 4.4 mMol/L (3.7-5.1); SODIUM 137 mMol/L (135-145); TOTAL PROTEIN 7.9 g/dL (6.0-8.4)
[2016-10-16 15:35] LABS: TOTAL BILIRUBIN 0.5 mg/dL (0.0-1.5)
== END 2016-10-16 16:57 | disposition disaster alternative care site (69) ==
LOC: GMED 14:33
PROVIDERS: Physician Assistant
DX: I13.0 Hypertensive heart and chronic kidney disease with heart failure and stage 1 through stage 4 chronic kidney disease, or unspecified chronic kidney disease (principal); E11.22 Type 2 diabetes mellitus with diabetic chronic kidney disease; N18.3 Chronic kidney disease, stage 3 (moderate); I50.9 Heart failure, unspecified; F32.9 Major depressive disorder, single episode, unspecified; Z79.4 Long term (current) use of insulin; Z79.82 Long term (current) use of aspirin; Z79.01 Long term (current) use of anticoagulants; Z79.899 Other long term (current) drug therapy; Z79.891 Long term (current) use of opiate analgesic; Z86.718 Personal history of other venous thrombosis and embolism

== ENCOUNTER → 2016-10-16 | Outpatient (CLI) | payer MEDICARE, BC, MEDICAID ==
[~2016-10-16] MED LIST changes: +ALOE VESTA226 GM TOP; +LASIX40 MG PO; +ULTRAM50 MG PO
== END | disposition disaster alternative care site (69) ==
LOC: GMED 14:19 → GAMB 14:19
DX: R06.9 Unspecified abnormalities of breathing (principal); R06.02 Shortness of breath; Z79.899 Other long term (current) drug therapy
CPT/HCPCS: A0425; A0429